=== PATIENT | female | born 1945 | race Caucasian/White ===

== ENCOUNTER 2021-08-26 03:46 | Inpatient (IN) | payer MEDICARE, SELFPAY ==
[2021-08-26] VITALS (11 sets, daily range): BP systolic 115–160; BP diastolic 62–88; PULSE 59–61; RESP 14–20; TEMP 36.1–37.2; O2SAT 90–97; BMI 48.4
--- NOTE | 2021-08-26 | ECG_ITS ---
Test Reason : sob Blood Pressure : / mmHG Vent. Rate : 060 BPM Atrial Rate : 055 BPM P-R Int : 000 ms QRS Dur : 174 ms QT Int : 498 ms P-R-T Axes : 000 -04 075 degrees QTc Int : 498 ms Ventricular-paced rhythm Abnormal ECG When compared with ECG of 31-AUG-2014 09:51, Electronic ventricular pacemaker has replaced Sinus rhythm Right bundle branch block is no longer Present Referred By: Rachael Crane Electronically Signed By:DORY SERRANO MD
--- NOTE | ~2021-08-26 | XR_ITS ---
EXAMINATION: XR CHEST CLINICAL INFORMATION: Shortness of breath COMPARISON: 09/01/2021 TECHNIQUE: Frontal view of the chest was obtained. FINDINGS: Left-sided pacemaker lead tips overlie the right atrium and right ventricle. Lung volumes are symmetric. Patchy regions of opacity in the left midlung and bilateral lung bases appear overall increased from prior. No evidence of pneumothorax or significant pleural effusion. The cardiomediastinal silhouette is stable. Degenerative changes are noted in the shoulders. XR/XR chest 1V IMPRESSION: Interval increase in bibasilar and left midlung opacities since 09/01/2021, in keeping with recent history of Covid pneumonia.
--- NOTE | ~2021-08-26 | XR_ITS ---
EXAMINATION: XR CHEST CLINICAL INFORMATION: Status post chest tube insertion, check placement COMPARISON: 09/10/2021 TECHNIQUE: Frontal view of the chest was obtained. FINDINGS: Right-sided chest tube catheter tip overlies the medial right hemithorax. Endotracheal tube tip lies at approximately 3 cm above the rolando. Enteric tube courses in the stomach. Redemonstrated left-sided pacemaker. Redemonstrated small to moderate-sized right pneumothorax, without significant change in appearance from today's earlier exam, including some leftward mediastinal shift. Previously identified small left pneumothorax is not as well demonstrated on the current exam. Redemonstrated multifocal opacities throughout the left lung and at the right base, similar to prior. Small left pleural effusion may also be present. The cardiomediastinal silhouette is stable. No acute osseous findings are seen. XR/XR chest 1V IMPRESSION: Right-sided chest tube catheter tip overlies the medial right hemithorax. Redemonstrated small to moderate-sized right pneumothorax, without significant change from recent exam. Previously identified small left pneumothorax is not as well seen on the current study; attention on follow-up recommended. Stable appearance of multifocal bilateral airspace opacities, left greater than right. This critical result was discussed with DESIREE Morris on 09/10/2021 2:23 AM, and it was ascertained that the content and urgency of the report was understood at the time of direct communication.
--- NOTE | ~2021-08-26 | US_ITS ---
EXAMINATION: US VENOUS ULTRASOUND WITH DOPPLER LOWER EXTREMITY, BILATERAL CLINICAL INFORMATION: Covid positive at 7 bump in the d-dimer COMPARISON: None TECHNIQUE: Ultrasound of the deep veins is performed from the hip to the calf with compression sonography and color and pulse Doppler assessment. Spectral analysis with color-flow imaging is performed. FINDINGS: RIGHT: There is normal venous compression and respiratory variation and augmented flow. The visualized common femoral vein, superficial femoral vein, profunda femoral vein, popliteal vein, and the trifurcation region shows no evidence of deep venous thrombosis. There is occlusive thrombus in the right posterior tibial vein. Also visualized is slow flow in the lower extremity. There is no significant popliteal fossa cyst. LEFT: There is normal venous compression and respiratory variation and augmented flow. The visualized common femoral vein, superficial femoral vein, profunda femoral vein, popliteal vein, and the trifurcation region shows no evidence of deep venous thrombosis. There is occlusive thrombus in the left posterior tibial veins with slow flow seen throughout left leg. There is no significant popliteal fossa cyst. If the patient's symptoms persist, followup ultrasound in 5 days 7 days might be of value to exclude proximal propagation from a non-visualized calf vein. US/US venous duplex LE IMPRESSION: Bilateral compressive acute DVT in posterior tibial veins.
--- NOTE | ~2021-08-26 | XR_ITS ---
EXAMINATION: XR HAND WRIST, RIGHT CLINICAL INFORMATION: Trauma, pain, fracture COMPARISON: None TECHNIQUE: The right hand and wrist are imaged in 4 total images with [id number] to include both areas on each view. There are total of 4 views. FINDINGS: There is a comminuted impacted fracture involving the distal radius with both transverse and longitudinal intra-articular component. There is no dislocation or destructive process. There is mild widening of the scapholunate lunate articulation which may suggest scapholunate ligament tear. Remainder of the bony structures appear intact. XR/XR hand wrist RT IMPRESSION: 1. Comminuted impacted fracture distal radius. 2. Mild widening scapholunate articulation which may suggest ligament tear.
--- NOTE | ~2021-08-26 | XR_ITS ---
EXAMINATION: XR CHEST CLINICAL INFORMATION: Covid positive. COMPARISON: None TECHNIQUE: Frontal view of the chest was obtained. FINDINGS: Left chest wall pacer in place. Cardiac leads overlie the chest. The lungs are well expanded. There is no focal consolidation, edema, or effusion. No pneumothorax. The cardiomediastinal silhouette is within normal limits. No acute osseous abnormality. XR/XR chest 1V IMPRESSION: No acute pulmonary finding.
--- NOTE | ~2021-08-26 | CT_ITS ---
EXAMINATION: CT CHEST WITHOUT CONTRAST CLINICAL INFORMATION: Acute hypoxemia with respiratory failure secondary to COVID. COMPARISON: Chest x-ray of 08/26/2021. TECHNIQUE: Multidetector volumetric CT imaging of the chest was done. Axial MIP volume rendering provided. Sagittal and coronal reformatted images were obtained. This CT examination was performed using dose optimization techniques as appropriate, variously including the following: *Automated exposure control *Adjustment of mA and/or kV according to patient size (this includes techniques or standardized protocols for targeted exams where dose is matched to indication/reason for exam; i.e. extremities or head) *Use of iterative reconstruction technique DLP: 316 mGy-cm FINDINGS: LUNGS: There are diffusely scattered regions of ground-glass opacity seen bilaterally with a more confluent region of airspace disease seen within the left lower lobe. Bronchial wall thickening is present. Central airways are patent. There is some mild bronchiectasis seen within the left lower lobe. MEDIASTINUM: The heart is enlarged. No pericardial effusion. Coronary artery calcification present. Pacemaker in place. Ascending thoracic aorta measures 4.1 cm in diameter. No occlusive arch calcified plaque is seen. There is a 1 cm short axis aortopulmonic window lymph node. PLEURA: There is no pleural effusion. AXILLA: No lymphadenopathy. UPPER ABDOMEN: The left adrenal gland is prominent. Status post cholecystectomy. OSSEOUS STRUCTURES: There are degenerative changes of both shoulders. No acute destructive bony lesions identified. CT/CT chest wo con IMPRESSION: Bilateral regions of ground-glass opacity consistent with COVID disease. More confluent region of disease seen within the left lower lobe. Cardiomegaly without evidence of pulmonary edema. 1 cm short axis aortopulmonic window lymph node. Enlarged ascending thoracic aorta to 4.1 cm in diameter.
--- NOTE | ~2021-08-26 | XR_ITS ---
EXAMINATION: XR CHEST CLINICAL INFORMATION: Status post intubation COMPARISON: 09/09/2021 TECHNIQUE: Frontal view of the chest was obtained. FINDINGS: Endotracheal tube tip appears to lie approximately 4 cm above the rolando. Redemonstrated left-sided pacemaker with lead tips at the expected regions of the right atrium and right ventricle. There is a small to moderate right-sided pneumothorax. The right hemithorax appears hyperinflated with some leftward mediastinal shift, concerning for associated tension. Small left pneumothorax is also suspected. Patchy opacities throughout the left lung appear mildly worsened from prior. Redemonstrated patchy opacities at the right lung base. Trace left pleural effusion cannot be excluded. Cardiomediastinal size appears grossly stable. No acute osseous findings are seen. XR/XR chest 1V IMPRESSION: 1. New small to moderate-sized right pneumothorax with findings concerning for associated tension. 2. Small left pneumothorax also noted. 3. Bilateral airspace opacities, left greater than right, and slightly worsened on the left compared to prior. 4. Endotracheal tube tip approximately 4 cm above the rolando. This critical result was discussed with DESIREE Morris on 09/10/2021 1:09 AM, and it was ascertained that the content and urgency of the report was understood at the time of direct communication.
--- NOTE | ~2021-08-26 | XR_ITS ---
EXAMINATION: XR CHEST CLINICAL INFORMATION: Hypoxia. COMPARISON: Chest radiograph dated from 09/09/2021 at 5:33 AM. TECHNIQUE: AP view of the chest was obtained. FINDINGS: Left-sided pacer with leads overlying the regions of the right atrium and right ventricle in similar positioning to prior. EKG leads overlie the left and lower chest. Unchanged appearance of the cardiomediastinal silhouette. Mildly increased patchy airspace opacities predominantly in the lung bases with also slightly increased small bilateral pleural effusions. No pneumothorax. No acute osseous findings. XR/XR chest 1V IMPRESSION: Increased patchy airspace opacities and bilateral pleural effusions. No pneumothorax.
--- NOTE | 2021-08-26 04:27 | ED_ITS ---
HPI - SOB/Dyspnea General Chief Complaint: Dyspnea Stated Complaint: sob,+covid Time Seen by Provider: 08/26/21 04:27 Source: patient Mode of arrival: EMS History of Present Illness HPI Narrative: 75-year-old female who is brought in by ambulance for increasing shortness of breath and dizziness that she states has been worsening since her recent diagnosis of COVID-19 3 days ago. She denies any new cough, chest pain/palpitations, GI or symptoms. In addition, patient denies any history diagnoses such as heart failure/fluid on the lungs/asthma/COPD. Her history is significant for a recent fall at the beginning of the month that she states was mechanical in nature and for which she still has her right arm in a splint. Related Data Home Medications Medication Instructions Recorded Confirmed ascorbic acid (vitamin C) 500 mg 500 mg PO DAILY 08/26/21 08/26/21 tablet (Vitamin C) citalopram 20 mg tablet 20 mg PO DAILY 08/26/21 08/26/21 furosemide 20 mg tablet 20 mg PO DAILY 08/26/21 08/26/21 levothyroxine 175 mcg tablet 175 mcg PO DAILY 08/26/21 08/26/21 lisinopril 20 mg tablet 20 mg PO DAILY 08/26/21 08/26/21 metoprolol succinate 200 mg 200 mg PO DAILY 08/26/21 08/26/21 tablet,extended release 24 hr multivitamin 1 tab PO DAILY 08/26/21 08/26/21 omeprazole 20 mg capsule,delayed 20 mg PO DAILY 08/26/21 08/26/21 release oxycodone 5 mg tablet 5 mg PO Q6H 08/26/21 08/26/21 simvastatin 40 mg tablet 40 mg PO BEDTIME 08/26/21 08/26/21 warfarin 5 mg tablet (Jantoven) 1 tab PO DAILY@1800 08/26/21 08/26/21 Allergies Allergy/AdvReac Type Severity Reaction Status Date / Time No Known Allergies Allergy Unverified 07/02/20 16:44 Review of Systems Review of Systems: Pertinent positives and negatives as stated in HPI 10 point review of systems is otherwise negative. PMFSH Past Medical History Source: nursing notes reviewed Medical History (Updated 08/26/21 @ 21:16 by Rachael Crane MD) CAD (coronary artery disease) Hyperlipidemia Hypertension Surgical History (Updated 08/26/21 @ 10:11 by Chapincito Rosales MD) History of appendectomy S/P placement of cardiac pacemaker Social History Social History (Updated 08/26/21 @ 10:11 by Chapincito Rosales MD) Household Members: Spouse Housing: House Do you presently have visiting nurse or other home services: No Alcohol intake: never Patient Tobacco Use Status: Never used Tobacco Physical Exam Vital Signs: Vital Signs: Last Vital Signs Temp 97.2 F 08/26/21 19:09 Pulse 60 08/26/21 19:09 Resp 20 08/26/21 19:09 BP 115/69 08/26/21 19:09 Pulse Ox 95 08/26/21 19:09 Body Mass Index 48.4 VITAL SIGNS: Reviewed. GENERAL: Morbidly obese, chronically ill, poor hygiene HEAD: Normocephalic/atraumatic EYES: PERRLA, EOMI OROPHARYNX: no oral lesions noted, posterior pharynx clear, dry mucosa NECK: Supple, no adenopathy LUNGS: By basilar decreased breath up, rales but no rhonchi noted. SpO2<90> placed on nasal cannula with good response CARDIOVASCULAR: Regular rate and rhythm without noted murmurs, no JVD or lower extremity edema. ABDOMEN: Obese, Soft, non-tender, non-distended with bowel sounds. MUSCULOSKELETAL: Right upper extremity is in a splint with good capillary refill in pulses, sensation is intact EXTREMITIES: No cyanosis, clubbing or edema, but onychomycosis SKIN: Inspection of the skin reveals no rashes NEUROLOGIC: Alert and oriented x 4. Strength and sensation to light touch were grossly intact x 4. Course Course Course Narrative: 75-year-old female with history and clinical presentation most consistent with symptoms of COVID-19, new hypoxia. Review of all investigations consistent with COVID-19 infection with hypoxia. This case was discussed with the inpatient hospital was of you agrees for admission, but states that the day team will need to formally assess the pa tient. I discussed this case briefly with Dr Mcdonough, who agrees with diuresis. MDM - SOB/Dyspnea Lab Data Result diagrams: 08/26/21 04:33 08/26/21 04:33 Labs: Lab Results 08/26/21 08/26/21 08/26/21 Range/Units 04:33 04:33 04:33 WBC 5.7 (4.8-10.8) X10*3/uL RBC 3.73 L (4.20-5.50) X10*6/uL Hgb 12.5 (12.0-16.0) g/dl Hct 37.9 (37.0-47.0) % MCV 101.6 H (80.0-98.0) fL MCH 33.5 H (27.0-33.0) pg MCHC 33.0 (31.0-35.0) g/dl RDW 15.8 (11.0-16.0) % Plt Count 184 (160-400) X10*3/uL MPV 11.4 (9.4-12.3) fL Immature Gran % (Auto) 0.4 (0.0-0.4) % Neut % (Auto) 79.3 H (45-73) % Lymph % (Auto) 14.8 L (20-40) % Montgomery % (Auto) 5.5 (2-11) % Eos % (Auto) 0.0 (0-4) % Baso % (Auto) 0.0 (0-2) % Lymph # (Auto) 0.8 L (1.2-4.9) X10*3/uL Montgomery # (Auto) 0.3 (0.1-1.2) X10*3/uL Eos # (Auto) 0.0 (0.0-0.4) X10*3/uL Baso # (Auto) 0.0 (0.0-0.2) X10*3/uL Abs Immat Gran (auto) 0.02 (0.00-0.03) X10*3/uL Absolute Neuts (auto) 4.5 (2.0-8.3) x10*3/uL Absolute Nucleated RBC 0.000 (0.0-0.012) X10*3/uL Nucleated RBC % (auto) 0.0 (0.0-0.2) /100WBC VBG pH (7.32-7.43) VBG pCO2 mmHg VBG pO2 mmHg VBG HCO3 (22-26) mmol/L VBG O2 Saturation % VBG Base Excess mmol/L Sodium 142 (135-145) mmol/L Potassium 3.7 (3.3-5.1) mmol/L Chloride 104 (96-108) mmol/L Carbon Dioxide 27 (22-29) mmol/L Anion Gap 15 (12-20) BUN 18 H (9-16) mg/dL Creatinine 0.89 (0.5-1.4) mg/dL Estim Creat Clear Calc 80.0 Estimated GFR > 60 Fasting Glucose 113 H (60-99) mg/dL Lactic Acid 1.8 (0.5-2.0) mmol/L Calcium 8.4 (8.4-10.2) mg/dL Ferritin 534 H (10-250) ng/mL Total Bilirubin 0.6 (0.0-1.0) mg/dL AST 38 H (5-31) U/L ALT 23 (0-31) U/L Alkaline Phosphatase 69 (39-117) U/L Lactate Dehydrogenase 300 H (122-220) U/L C-Reactive Protein 11.06 H (< or = 0.50) mg/dL B-Natriuretic Peptide (<100) pg/mL Total Protein 6.5 (6.5-8.0) g/dL Albumin 3.2 L (3.5-5.0) g/dL Procalcitonin ng/mL COVID-19 (ROBBIE) (Negative) COVID-19 Clin Com 08/26/21 08/26/21 08/26/21 Range/Units 04:33 04:33 04:33 WBC (4.8-10.8) X10*3/uL RBC (4.20-5.50) X10*6/uL Hgb (12.0-16.0) g/dl Hct (37.0-47.0) % MCV (80.0-98.0) fL MCH (27.0-33.0) pg MCHC (31.0-35.0) g/dl RDW (11.0-16.0) % Plt Count (160-400) X10*3/uL MPV (9.4-12.3) fL Immature Gran % (Auto) (0.0-0.4) % Neut % (Auto) (45-73) % Lymph % (Auto) (20-40) % Montgomery % (Auto) (2-11) % Eos % (Auto) (0-4) % Baso % (Auto) (0-2) % Lymph # (Auto) (1.2-4.9) X10*3/uL Montgomery # (Auto) (0.1-1.2) X10*3/uL Eos # (Auto) (0.0-0.4) X10*3/uL Baso # (Auto) (0.0-0.2) X10*3/uL Abs Immat Gran (auto) (0.00-0.03) X10*3/uL Absolute Neuts (auto) (2.0-8.3) x10*3/uL Absolute Nucleated RBC (0.0-0.012) X10*3/uL Nucleated RBC % (auto) (0.0-0.2) /100WBC VBG pH (7.32-7.43) VBG pCO2 mmHg VBG pO2 mmHg VBG HCO3 (22-26) mmol/L VBG O2 Saturation % VBG Base Excess mmol/L Sodium (135-145) mmol/L Potassium (3.3-5.1) mmol/L Chloride (96-108) mmol/L Carbon Dioxide (22-29) mmol/L Anion Gap (12-20) BUN (9-16) mg/dL Creatinine (0.5-1.4) mg/dL Estim Creat Clear Calc Estimated GFR Fasting Glucose (60-99) mg/dL Lactic Acid (0.5-2.0) mmol/L Calcium (8.4-10.2) mg/dL Ferritin (10-250) ng/mL Total Bilirubin (0.0-1.0) mg/dL AST (5-31) U/L ALT (0-31) U/L Alkaline Phosphatase (39-117) U/L Lactate Dehydrogenase (122-220) U/L C-Reactive Protein (< or = 0.50) mg/dL B-Natriuretic Peptide 799 H (<100) pg/mL Total Protein (6.5-8.0) g/dL Albumin (3.5-5.0) g/dL Procalcitonin 0.06 ng/mL COVID-19 (ROBBIE) Positive A (Negative) COVID-19 Clin Com See Note 08/26/21 Range/Units 04:37 WBC (4.8-10.8) X10*3/uL RBC (4.20-5.50) X10*6/uL Hgb (12.0-16.0) g/dl Hct (37.0-47.0) % MCV (80.0-98.0) fL MCH (27.0-33.0) pg MCHC (31.0-35.0) g/dl RDW (11.0-16.0) % Plt Count (160-400) X10*3/uL MPV (9.4-12.3) fL Immature Gran % (Auto) (0.0-0.4) % Neut % (Auto) (45-73) % Lymph % (Auto) (20-40) % Montgomery % (Auto) (2-11) % Eos % (Auto) (0-4) % Baso % (Auto) (0-2) % Lymph # (Auto) (1.2-4.9) X10*3/uL Montgomery # (Auto) (0.1-1.2) X10*3/uL Eos # (Auto) (0.0-0.4) X10*3/uL Baso # (Auto) (0.0-0.2) X10*3/uL Abs Immat Gran (auto) (0.00-0.03) X10*3/uL Absolute Neuts (auto) (2.0-8.3) x10*3/uL Absolute Nucleated RBC (0.0-0.012) X10*3/uL Nucleated RBC % (auto) (0.0-0.2) /100WBC VBG pH 7.44 H (7.32-7.43) VBG pCO2 42 mmHg VBG pO2 43 mmHg VBG HCO3 28 H (22-26) mmol/L VBG O2 Saturation 67.0 % VBG Base Excess 4.3 mmol/L Sodium (135-145) mmol/L Potassium (3.3-5.1) mmol/L Chloride (96-108) mmol/L Carbon Dioxide (22-29) mmol/L Anion Gap (12-20) BUN (9-16) mg/dL Creatinine (0.5-1.4) mg/dL Estim Creat Clear Calc Estimated GFR Fasting Glucose (60-99) mg/dL Lactic Acid (0.5-2.0) mmol/L Calcium (8.4-10.2) mg/dL Ferritin (10-250) ng/mL Total Bilirubin (0.0-1.0) mg/dL AST (5-31) U/L ALT (0-31) U/L Alkaline Phosphatase (39-117) U/L Lactate Dehydrogenase (122-220) U/L C-Reactive Protein (< or = 0.50) mg/dL B-Natriuretic Peptide (<100) pg/mL Total Protein (6.5-8.0) g/dL Albumin (3.5-5.0) g/dL Procalcitonin ng/mL COVID-19 (ROBBIE) (Negative) COVID-19 Clin Com ECG Data Attestation: I personally reviewed and interpreted this ECG as follows: Prior ECG tracings: available for review (08/31/2014 significant changes likely secondary to changes in cardiac history as patient has pacemaker.) Interpretation: Ventricular paced rhythm, HR-60, no STEMI Discharge Plan Discharge Clinical Impression: COVID-19, Hypoxemia, Congestive heart failure Patient Disposition: Admitted As Inpatient Discharge Date/Time: 08/26/21 15:32
[2021-08-26 04:39] LABS: MANUAL DIFF FLAG NO
[2021-08-26 04:44] LABS: Venous Blood Gas Refer to POC result
[2021-08-26 04:45] LABS: VBG Base Excess 4.3 mmol/L; VBG HCO3 28 mmol/L (22-26); VBG pCO2 42 mmHg; VBG pH 7.44 (7.32-7.43); VBG pO2 43 mmHg
[2021-08-26 04:47] LABS: Hematocrit 37.9 % (37.0-47.0); Hemoglobin 12.5 g/dl (12.0-16.0); Imm Gran Abs Auto 0.02 X10*3/uL (0.00-0.03); Imm Gran Pct Auto 0.4 % (0.0-0.4); Lymphocytes Absolute Auto 0.8 X10*3/uL (1.2-4.9); Lymphocytes Percent Auto 14.8 % (20-40); Mean Corpuscular Hemoglobin 33.5 pg (27.0-33.0); Mean Corpuscular Volume 101.6 fL (80.0-98.0); Mean Platelet Volume 11.4 fL (9.4-12.3); Monocytes Absolute Auto 0.3 X10*3/uL (0.1-1.2); Monocytes Percent Auto 5.5 % (2-11); Neutrophils Absolute Auto 4.5 x10*3/uL (2.0-8.3); Neutrophils Percent Auto 79.3 % (45-73); Platelet Count 184 X10*3/uL (160-400); Red Blood Count 3.73 X10*6/uL (4.20-5.50); Red Cell Distribution Width 15.8 % (11.0-16.0); White Blood Count 5.7 X10*3/uL (4.8-10.8)
[2021-08-26 04:54] LABS: COVID-19 Test Positive (Negative)
[2021-08-26 05:02] LABS: Lactic Acid 1.8 mmol/L (0.5-2.0)
[2021-08-26 05:06] LABS: Alanine Aminotransferase 23 U/L (0-31); Albumin Level 3.2 g/dL (3.5-5.0); Alkaline Phosphatase 69 U/L (39-117); Anion Gap 15 (12-20); Aspartate Amino Transferase 38 U/L (5-31); Bilirubin Total 0.6 mg/dL (0.0-1.0); Blood Urea Nitrogen 18 mg/dL (9-16); Calcium 8.4 mg/dL (8.4-10.2); Carbon Dioxide 27 mmol/L (22-29); Chloride 104 mmol/L (96-108); Estimated Glomerular Filt Rate > 60; Glucose Fasting 113 mg/dL (60-99); Potassium 3.7 mmol/L (3.3-5.1); Sodium 142 mmol/L (135-145); Total Protein 6.5 g/dL (6.5-8.0)
[2021-08-26 05:29] LABS: B Type Natriuretic Peptide 799 pg/mL (<100)
--- NOTE | 2021-08-26 05:32 | PC.NURSE ---
Pt alert and oriented x4, anxious. Pt denies pain. States SOB. States dizziness ad weakness when OOB. Placed on 2 liters O2 at this time, denies having home O2. History of recent fall, arm splint to right arm placed 1 week ago per pt. Red moist painful rash noted under breast and abd folds, MD Crane made aware and shown rash. IV intact. Pt resting in stretcher without complaints, will continue to monitor.
[2021-08-26] MEDS: Furosemide 100 MG/10 ML VIAL 60 MG IVPUSH (08:43)
--- NOTE | 2021-08-26 08:59 | PHA.MEDREC ---
Pharmacy Consult ? Medication Reconciliation Pharmacy has completed the medication reconciliation. There are no remarkable issues for providers attention. Patient confirmed citalopram dose was decreased to 20mg and warfarin is 5mg daily. Patient also reported she is no longer taking diltiazem, Jessi Hamm, PharmD
--- NOTE | 2021-08-26 09:53 | P.HPHOSP_ITS ---
History of Present Illness Date of Service: 08/26/21 Chief Complaint: shortness of breath This is a 75 yo F (who is not a great historian and so PMH is limited) who presents to the ED with complaints of shortness of breath over the last several days which has progressed to the point that she can barely walk several feet. She endorses a productive cough of white sputum. She denies any fevers or chills. She denies any pleurtic chest pain. She reports fatigue and generalized malaise. She reports that she tested positive for COVID about 3-4 days ago. She reports that she is not vaccinated. She denies any known sick contacts although does report that her has diarrhea but that his COVID testing she thinks is negative. In regards to her medical history, the patient reports that she had an AMI about 5 years ago and also has a PPM. She reports previously being on lasix, but is unsure if she carries a diagnosis of CHF. She denies any other chronic health problems. Review of Systems Review of Systems: all systems reviewed and negative except for HPI [facility] Medical History (Updated 08/26/21 @ 10:09 by Chapincito Rosales MD) CAD (coronary artery disease) Hyperlipidemia Hypertension Pertinent family history: Mother had Heart failure Father and sister has alcoholism Surgical History (Updated 08/26/21 @ 10:11 by Chapincito Rosales MD) History of appendectomy S/P placement of cardiac pacemaker Social History (Updated 08/26/21 @ 10:11 by Chapincito Rosales MD) Alcohol intake: never Patient Tobacco Use Status: Never used Tobacco Smoked in Last 30 Days: No Use of substances other than those prescribed or required for medical reasons: No Advance Directives: No Meds Allergies Allergy/AdvReac Type Severity Reaction Status Date / Time No Known Allergies Allergy Unverified 07/02/20 16:44 Active Medications: Current Medications Acetaminophen (Acetaminophen 325 Mg Tablet) 650 mg PO Q6H PRN PRN Reason: Fever Dexamethasone Sodium Phosphate (Dexamethasone Sod Phosphate 4 Mg/Ml Vial) 6 mg IVPUSH DAILY JESSICA Stop: 09/04/21 09:01 Ondansetron HCl (Ondansetron Hcl 4 Mg/2 Ml Vial) 4 mg IVPUSH Q8H PRN PRN Reason: Nausea and Vomiting Pharmacy Consult (Consult Rx Perform Med Rec) 1 each MISCELLANE ONCE PRN PRN Reason: Consult order Sodium Chloride (0.9 % Sodium Chloride Flush 3 Ml Syringe) 3 ml IVFLUSH QSHIFT [facility] Home Medications Medication Instructions Recorded Confirmed Last Taken Type ascorbic acid (vitamin C) 500 mg 500 mg PO DAILY 08/26/21 08/26/21 08/25/21 History tablet (Vitamin C) citalopram 20 mg tablet 20 mg PO DAILY 08/26/21 08/26/21 08/25/21 History furosemide 20 mg tablet 20 mg PO DAILY 08/26/21 08/26/21 08/25/21 History levothyroxine 175 mcg tablet 175 mcg PO DAILY 08/26/21 08/26/21 08/25/21 History lisinopril 20 mg tablet 20 mg PO DAILY 08/26/21 08/26/21 08/25/21 History metoprolol succinate 200 mg 200 mg PO DAILY 08/26/21 08/26/21 08/25/21 History tablet,extended release 24 hr multivitamin 1 tab PO DAILY 08/26/21 08/26/21 08/25/21 History omeprazole 20 mg capsule,delayed 20 mg PO DAILY 08/26/21 08/26/21 08/25/21 History release oxycodone 5 mg tablet 5 mg PO Q6H 08/26/21 08/26/21 08/25/21 History simvastatin 40 mg tablet 40 mg PO BEDTIME 08/26/21 08/26/21 08/25/21 History warfarin 5 mg tablet (Jantoven) 1 tab PO DAILY@1800 08/26/21 08/26/21 08/25/21 History Physical Exam Vital Signs and Narrative: Vital Signs: Last Vital Signs Temp 99.0 F 08/26/21 07:17 Pulse 60 08/26/21 08:42 Resp 16 08/26/21 08:42 BP 146/67 H 08/26/21 08:42 Pulse Ox 95 08/26/21 07:17 Body Mass Index 48.4 Const: Other: Constitutional - Awake and Alert, appears fatigued Eyes - PERRLA, EOMI Cardiovascular - S1S2, trace pedal edema, JVD evaluation limited due to body habitus Respiratory - distant breath sounds, no respiratory distress at rest; saturation mid 90s on 3L NC Gastrointestinal - NT / ND; +BS; No rebound or guarding - No CVA tenderness Extremities - no calf tenderness bilaterally, no swelling Musculoskeletal - Normal inspection, normal ROM Skin - Warm/Dry Neurological - Moving all 4 limbs, no facial assymetry, oriented to person, place and time; vague historian Psychological - Appropriate affect Results Labs CBC and Chem 7: 08/26/21 04:33 08/26/21 04:33 Labs: Laboratory Results - last 24 hr 08/26/21 08/26/21 08/26/21 04:33 04:33 04:33 MCV 101.6 H MCH 33.5 H MCHC 33.0 RDW 15.8 Plt Count 184 MPV 11.4 Immature Gran % (Auto) 0.4 Neut % (Auto) 79.3 H Lymph % (Auto) 14.8 L Calloway % (Auto) 5.5 Eos % (Auto) 0.0 Baso % (Auto) 0.0 Lymph # (Auto) 0.8 L Calloway # (Auto) 0.3 Eos # (Auto) 0.0 Baso # (Auto) 0.0 Abs Immat Gran (auto) 0.02 Absolute Neuts (auto) 4.5 Absolute Nucleated RBC 0.000 Nucleated RBC % (auto) 0.0 VBG pH VBG pCO2 VBG pO2 VBG HCO3 VBG O2 Saturation VBG Base Excess Anion Gap 15 Estim Creat Clear Calc 80.0 Estimated GFR > 60 Fasting Glucose 113 H Lactic Acid 1.8 Calcium 8.4 Total Bilirubin 0.6 AST 38 H ALT 23 Alkaline Phosphatase 69 B-Natriuretic Peptide Total Protein 6.5 Albumin 3.2 L COVID-19 (ROBBIE) COVID-19 Clin Com 08/26/21 08/26/21 08/26/21 04:33 04:33 04:37 MCV MCH MCHC RDW Plt Count MPV Immature Gran % (Auto) Neut % (Auto) Lymph % (Auto) Calloway % (Auto) Eos % (Auto) Baso % (Auto) Lymph # (Auto) Calloway # (Auto) Eos # (Auto) Baso # (Auto) Abs Immat Gran (auto) Absolute Neuts (auto) Absolute Nucleated RBC Nucleated RBC % (auto) VBG pH 7.44 H VBG pCO2 42 VBG pO2 43 VBG HCO3 28 H VBG O2 Saturation 67.0 VBG Base Excess 4.3 Anion Gap Estim Creat Clear Calc Estimated GFR Fasting Glucose Lactic Acid Calcium Total Bilirubin AST ALT Alkaline Phosphatase B-Natriuretic Peptide 799 H Total Protein Albumin COVID-19 (ROBBIE) Positive A COVID-19 Clin Com See Note Imaging Radiologist's Impressions: Impressions Chest X-Ray 08/26/21 04:36 IMPRESSION: No acute pulmonary finding. Assessment and Plan (1) COVID-19: Status: Acute This is a 75 yo unvaccinated (to COVID) female who presents to the hospital with 3 to 4 days of progressive shortness of breath and generalized malaise. She reported being tested for COVID at [facility] on Thursday 08/23. She now presents with respiratory symptoms. She will be admitted for further treatment. 1. COVID 19 Saturation 90 on RA, improved to mid 90s on 2-3l NC Check inflammatory biomarkers Start Decadron 6mg IV x 10 days Consult ID 2. Acute CHF, unspecified Endorses orthopnea and has an elevated BNP given IV lasix 60mg in the ED, will monitor urine output and start BID dosing will try to obtain echo results and if none recent, will get one here 3. HTN continue baseline meds 4. Coumadin use suspected for A. Fib, but patient is not sure. Check INR and continue coumadin will try to obtain records from [facility] Continue her other baseline meds Quality Stroke Does the patient have a stroke diagnosis?: No VTE Prior VTE?: No VTE Risk Level:: Medical - moderate - high VTE Device Contraindication: Treatment Not Indicated VTE Drug Contraindication: N/A - Med Ordered
[2021-08-26] MEDS: dexAMETHasone sod phosphate 4 MG/ML VIAL 6 MG IVPUSH (10:07)
[2021-08-26 10:23] LABS: C Reactive Protein 11.06 mg/dL (< or = 0.50); Lactate Dehydrogenase 300 U/L (122-220)
[2021-08-26] MEDS: lisinopriL 20 MG TABLET PO (10:29)
[2021-08-26] MEDS: Escitalopram Oxalate 10 MG TABLET PO (10:30)
[2021-08-26] MEDS: Metoprolol Succinate ER 100 MG TAB.ER.24H 200 MG PO (10:30)
[2021-08-26 10:41] LABS: Prothrombin Time 46.8 SEC (9.9-13.0)
[2021-08-26 10:42] LABS: Ferritin 534 ng/mL (10-250)
[2021-08-26 10:44] LABS: D Dimer 425 NG/ML
[2021-08-26 10:48] LABS: Procalcitonin 0.06 ng/mL
[2021-08-26] MEDS: Furosemide 20 MG/2 ML VIAL IVPUSH (17:42)
[2021-08-26] MEDS: 0.9 % Sodium Chloride Flush 3 ML SYRINGE IVFLUSH ×2 (17:43→22:33)
[2021-08-26] MEDS: Atorvastatin Calcium 20 MG TABLET PO (20:22)
[2021-08-26] MEDS: Acetaminophen 325 MG TABLET 650 MG PO (22:39)
[2021-08-27] VITALS (7 sets, daily range): BP systolic 122–147; BP diastolic 56–82; PULSE 58–88; RESP 17–20; TEMP 35.9–36.8; O2SAT 90–96
[2021-08-27] MEDS: Levothyroxine Sodium 175 MCG TABLET PO (05:14)
[2021-08-27] MEDS: Omeprazole 20 MG CAPSULE.DR PO (05:14)
[2021-08-27 06:52] LABS: Hemoglobin 12.4 g/dl (12.0-16.0); Mean Corpuscular HGB Conc 32.6 g/dl (31.0-35.0); Mean Corpuscular Hemoglobin 32.1 pg (27.0-33.0); Mean Corpuscular Volume 98.4 fL (80.0-98.0); Mean Platelet Volume 11.5 fL (9.4-12.3); Platelet Count 175 X10*3/uL (160-400); Red Blood Count 3.86 X10*6/uL (4.20-5.50); Red Cell Distribution Width 15.6 % (11.0-16.0); White Blood Count 5.9 X10*3/uL (4.8-10.8)
[2021-08-27 06:56] LABS: INTERNATIONAL NORM RATIO 3.3 (0.9-1.1); Prothrombin Time 38.2 SEC (9.9-13.0)
[2021-08-27 07:11] LABS: Anion Gap 12 (12-20); Blood Urea Nitrogen 22 mg/dL (9-16); Calcium 8.1 mg/dL (8.4-10.2); Carbon Dioxide 32 mmol/L (22-29); Chloride 101 mmol/L (96-108); Creatinine Clr Calc Pharmacy 85.7; Estimated Glomerular Filt Rate > 60; Glucose Random 103 mg/dL (60-115); Potassium 3.5 mmol/L (3.3-5.1); Sodium 141 mmol/L (135-145)
[2021-08-27] MEDS: Escitalopram Oxalate 10 MG TABLET PO (09:07)
[2021-08-27] MEDS: Furosemide 20 MG/2 ML VIAL IVPUSH ×2 (09:07→16:55)
[2021-08-27] MEDS: dexAMETHasone sod phosphate 4 MG/ML VIAL 6 MG IVPUSH (09:07)
[2021-08-27] MEDS: 0.9 % Sodium Chloride Flush 3 ML SYRINGE IVFLUSH ×3 (09:08→20:33)
[2021-08-27] MEDS: lisinopriL 20 MG TABLET PO (09:08)
[2021-08-27] MEDS: Metoprolol Succinate ER 100 MG TAB.ER.24H 200 MG PO (09:08)
--- NOTE | 2021-08-27 09:49 | MHC.CM.PN ---
Addendum entered by Patricia Adams 08/27/21 09:59: Pt is not Vaccinated. She does not have home @ oxygen. A HCP has been documented and placed on the chart. Original Note: IMM 08/27/21 FEMALE 75 DX COVID+ S/P FALL RUE FX PATIENT LIVES WITH HER . SHE USES A CANE OR WALKER AND WC FOR LONG DISTANCES. She sponge bathes. AC therapy has been managed at a [facility] practice on [facility] in [place] NO services or private pay help in home prior to admit. She does not want to go to [facility]. Home care preference NA. A referral has been made. DP Home with services. Family will provide transportation.
--- NOTE | 2021-08-27 11:59 | PC.NURSE ---
This RN at bedside - patient stated I want to make sure I'm a DNR on record . Patient orientated to person, place, and time, vague on situation. When asked if patient understood what DNR meant she stated I don't want anything done if it is my time to go . Rosaline Solo notified via tiger text. Patient remains Full code in [facility].
--- NOTE | 2021-08-27 14:39 | HO.PM.IMPN ---
Subjective Subjective Date of Service: 08/27/21 Interval History: seen and examined this morning follow up for covid no change in breathing, intermittent cough tearful when discussing right arm fracture, reporting her cast should have been removed by now but it was delayed due to COVID Review of Systems Review of Systems: Yes all other systems are reviewed and are negative Constitutional Constitutional: Denies chills and Denies fever(s) Cardiovascular Cardiovascular: Denies chest pain Gastrointestinal Gastrointestinal: Denies abdominal pain Physical Exam Vital Signs: Vital Signs: Last Vital Signs Temp 96.7 F L 08/27/21 11:56 Pulse 58 08/27/21 11:56 Resp 20 08/27/21 11:56 BP 122/77 08/27/21 11:56 Pulse Ox 93 08/27/21 11:56 Body Mass Index 48.4 Const: General: comfortable, alert and awake Nutritional Appearance: obese HENMT: Head: Yes normocephalic and Yes atraumatic Eyes: Sclerae: sclerae normal Resp: Effort & Inspection: normal respiratory effort and no respiratory distress Cardio: Rate: regular rate Rhythm: regular rhythm GI: Inspection: No distended Palpation (GI): Soft to palpation and nontender Neuro: Cranial nerves: Yes CN's II-XII intact bilaterally and Yes Bilaterally intact EOM present Extrem: Other: RUE cast in place Objective Data Active Medications Acetaminophen (Acetaminophen 325 Mg Tablet) 650 mg PO Q6H PRN PRN Reason: Fever Last Admin: 08/26/21 22:39 Dose: 650 mg Documented by: JORY Atorvastatin Calcium (Atorvastatin Calcium 20 Mg Tablet) 20 mg PO BEDTIME [facility] Last Admin: 08/26/21 20:22 Dose: 20 mg Documented by: JORY Dexamethasone Sodium Phosphate (Dexamethasone Sod Phosphate 4 Mg/Ml Vial) 6 mg IVPUSH DAILY [facility] Stop: 09/04/21 09:01 Last Admin: 08/27/21 09:07 Dose: 6 mg Documented by: PENNY Escitalopram Oxalate (Escitalopram Oxalate 10 Mg Tablet) 10 mg PO DAILY [facility] Last Admin: 08/27/21 09:07 Dose: 10 mg Documented by: PENNY Furosemide (Furosemide 20 Mg/2 Ml Vial) 20 mg IVPUSH BID@0900,1800 [facility]; Protocol Last Admin: 08/27/21 09:07 Dose: 20 mg Documented by: PENNY Levothyroxine Sodium (Levothyroxine Sodium 175 Mcg Tablet) 175 mcg PO DAILY@0600 [facility] Last Admin: 08/27/21 05:14 Dose: 175 mcg Documented by: AMANDA Lisinopril (Lisinopril 20 Mg Tablet) 20 mg PO DAILY [facility]; Protocol Last Admin: 08/27/21 09:08 Dose: 20 mg Documented by: PENNY Metoprolol Succinate (Metoprolol Succinate Er 100 Mg Tab.Er.24h) 200 mg PO DAILY [facility]; Protocol Last Admin: 08/27/21 09:08 Dose: 200 mg Documented by: PENNY Nystatin (Nystatin Powder 15 Gm Bottle) 1 appl TOPICAL BID [facility]; Protocol Last Admin: 08/27/21 10:40 Dose: Not Given Documented by: PENNY Non-Admin Reason: unavailable Omeprazole (Omeprazole 20 Mg Capsule.Dr) 20 mg PO DAILY@0630 [facility] Last Admin: 08/27/21 05:14 Dose: 20 mg Documented by: AMANDA Ondansetron HCl (Ondansetron Hcl 4 Mg/2 Ml Vial) 4 mg IVPUSH Q8H PRN PRN Reason: Nausea and Vomiting Pharmacy Consult (Consult Rx Perform Med Rec) 1 each MISCELLANE ONCE PRN PRN Reason: Consult order Sodium Chloride (0.9 % Sodium Chloride Flush 3 Ml Syringe) 3 ml IVFLUSH QSHIFT [facility] Last Admin: 08/27/21 09:08 Dose: 3 ml Documented by: PENNY Warfarin Sodium (Warfarin Sodium 5 Mg Tablet) 5 mg PO DAILY@1800 [facility] Labs CBC & Chem 7: 08/27/21 05:58 08/27/21 05:58 Labs: Laboratory Results - last 24 hr 08/27/21 08/27/21 08/27/21 05:58 05:58 05:58 MCV 98.4 H MCH 32.1 MCHC 32.6 RDW 15.6 Plt Count 175 MPV 11.5 Absolute Nucleated RBC 0.000 Nucleated RBC % (auto) 0.0 PT 38.2 H INR 3.3 H Anion Gap 12 Estim Creat Clear Calc 85.7 Estimated GFR > 60 Random Glucose 103 Calcium 8.1 L Microbiology Microbiology Results: Microbiology 08/26/21 07:27 Blood Culture - Preliminary Blood - Venous No growth after 24 hours. 08/26/21 06:39 Blood Culture - Preliminary Blood - Venous No growth after 24 hours. Assessment and Plan (1) COVID-19: Status: Acute (2) Congestive heart failure: Status: Acute Assessment and Plan: This is a 75 yo unvaccinated (to COVID) female who presents to the hospital with 3 to 4 days of progressive shortness of breath and generalized malaise. She reported being tested for COVID at [facility] on Thursday 08/23. She now presents with respiratory symptoms. She will be admitted for further treatment. COVID 19 Saturation 90 on RA, improved to mid 90s on 2-3l NC inflammatory biomarkers, CRP 11.06, LDH 300, ddimer 425 Continue Decadron 6mg IV x 10 days Consult ID Acute CHF, unspecified Endorses orthopnea and has an elevated BNP Continue IV lasix echo ordered Coumadin use suspected for Oscar Luna, but patient is not sure. INR 3.3, will hold today's dose follow INR intraarticular fracture of right distal radius sustained in mechanical fall at the end of july initially treated at [facility] surgery delayed due to testing +for COVID Morbid Obesity BMI 48.4 Body habitus is likely contributing to respiratory status Hypothyroidism Continue Synthroid GERD Continue Prilosec Hypertension Blood Pressure controlled Continue lisinopril, metoprolol Hyperlipidemia Continue statin Mood Continue Lexapro dvt ppx -Coumadin Attending-Dr. Rosales Quality Stroke Does the patient have a stroke diagnosis?: No VTE Prior VTE?: No VTE Risk Level:: Medical - moderate - high VTE Device Contraindication: Treatment Not Indicated VTE Drug Contraindication: N/A - Med Ordered
[2021-08-27] MEDS: Acetaminophen 325 MG TABLET 650 MG PO (18:06)
[2021-08-27] MEDS: Atorvastatin Calcium 20 MG TABLET PO (20:31)
[2021-08-28] VITALS (8 sets, daily range): BP systolic 119–148; BP diastolic 56–83; PULSE 62–88; RESP 18–20; TEMP 36.1–36.7; O2SAT 90–95
[2021-08-28] MEDS: Omeprazole 20 MG CAPSULE.DR PO (05:53)
[2021-08-28] MEDS: Levothyroxine Sodium 175 MCG TABLET PO (05:53)
[2021-08-28 06:37] LABS: INTERNATIONAL NORM RATIO 2.8 (0.9-1.1)
[2021-08-28 07:03] LABS: Anion Gap 14 (12-20); Blood Urea Nitrogen 23 mg/dL (9-16); Calcium 8.2 mg/dL (8.4-10.2); Carbon Dioxide 32 mmol/L (22-29); Chloride 102 mmol/L (96-108); Estimated Glomerular Filt Rate > 60; Glucose Random 97 mg/dL (60-115); Potassium 3.7 mmol/L (3.3-5.1); Sodium 144 mmol/L (135-145)
[2021-08-28] MEDS: Furosemide 20 MG/2 ML VIAL IVPUSH ×2 (08:43→17:02)
[2021-08-28] MEDS: dexAMETHasone sod phosphate 4 MG/ML VIAL 6 MG IVPUSH (08:44)
[2021-08-28] MEDS: Escitalopram Oxalate 10 MG TABLET PO (08:44)
[2021-08-28] MEDS: Metoprolol Succinate ER 100 MG TAB.ER.24H 200 MG PO (08:44)
[2021-08-28] MEDS: lisinopriL 20 MG TABLET PO (08:44)
[2021-08-28] MEDS: 0.9 % Sodium Chloride Flush 3 ML SYRINGE IVFLUSH ×2 (08:45→21:42)
[2021-08-28] MEDS: Morphine Sulfate 2 MG/ML CARTRIDGE 1 MG IVPUSH ×2 (08:46→22:23)
[2021-08-28] MEDS: Nystatin Powder 15 GM BOTTLE 1 APPL TOPICAL ×2 (08:46→21:42)
--- NOTE | 2021-08-28 11:48 | HO.PM.IMPN ---
Subjective Subjective Date of Service: 08/28/21 Interval History: No acute issues overnight Review of Systems Denies chest pain Denies shortness of breath Denies nausea vomiting diarrhea Physical Exam Vital Signs: Vital Signs: Last Vital Signs Temp 98.1 F 08/28/21 07:42 Pulse 69 08/28/21 08:44 Resp 20 08/28/21 07:42 BP 142/73 H 08/28/21 08:44 Pulse Ox 90 L 08/28/21 07:42 Body Mass Index 48.4 Const: Other: No acute issues overnight Resp: Other: Clear to auscultation bilaterally no rales rhonchi or wheezes Cardio: Other: No S4; positive S1-S2; no S3 murmurs or gallops GI: Other: Soft nontender nondistended with normoactive bowel sounds Extrem: Other: No edema bilaterally Objective Data Active Medications Acetaminophen (Acetaminophen 325 Mg Tablet) 650 mg PO Q6H PRN PRN Reason: Fever Last Admin: 08/27/21 18:06 Dose: 650 mg Documented by: PENNY Atorvastatin Calcium (Atorvastatin Calcium 20 Mg Tablet) 20 mg PO BEDTIME [facility] Last Admin: 08/27/21 20:31 Dose: 20 mg Documented by: EHSAN Dexamethasone Sodium Phosphate (Dexamethasone Sod Phosphate 4 Mg/Ml Vial) 6 mg IVPUSH DAILY [facility] Stop: 09/04/21 09:01 Last Admin: 08/28/21 08:44 Dose: 6 mg Documented by: MELIDA Escitalopram Oxalate (Escitalopram Oxalate 10 Mg Tablet) 10 mg PO DAILY [facility] Last Admin: 08/28/21 08:44 Dose: 10 mg Documented by: MELIDA Furosemide (Furosemide 20 Mg/2 Ml Vial) 20 mg IVPUSH BID@0900,1800 [facility]; Protocol Last Admin: 08/28/21 08:43 Dose: 20 mg Documented by: MELIDA Levothyroxine Sodium (Levothyroxine Sodium 175 Mcg Tablet) 175 mcg PO DAILY@0600 [facility] Last Admin: 08/28/21 05:53 Dose: 175 mcg Documented by: EHSAN Lisinopril (Lisinopril 20 Mg Tablet) 20 mg PO DAILY [facility]; Protocol Last Admin: 08/28/21 08:44 Dose: 20 mg Documented by: MELIDA Metoprolol Succinate (Metoprolol Succinate Er 100 Mg Tab.Er.24h) 200 mg PO DAILY [facility]; Protocol Last Admin: 08/28/21 08:44 Dose: 200 mg Documented by: MELIDA Morphine Sulfate (Morphine Sulfate 2 Mg/Ml Cartridge) 1 mg IVPUSH Q6H PRN; Protocol PRN Reason: Shortness of Breath Last Admin: 08/28/21 08:46 Dose: 1 mg Documented by: MELIDA Nystatin (Nystatin Powder 15 Gm Bottle) 1 appl TOPICAL BID [facility]; Protocol Last Admin: 08/28/21 08:46 Dose: 1 appl Documented by: MELIDA Omeprazole (Omeprazole 20 Mg Capsule.) 20 mg PO DAILY@0630 [facility] Last Admin: 08/28/21 05:53 Dose: 20 mg Documented by: EHSAN Ondansetron HCl (Ondansetron Hcl 4 Mg/2 Ml Vial) 4 mg IVPUSH Q8H PRN PRN Reason: Nausea and Vomiting Pharmacy Consult (Consult Rx Perform Med Rec) 1 each MISCELLANE ONCE PRN PRN Reason: Consult order Sodium Chloride (0.9 % Sodium Chloride Flush 3 Ml Syringe) 3 ml IVFLUSH QSHIFT [facility] Last Admin: 08/28/21 08:45 Dose: 3 ml Documented by: MELIDA Warfarin Sodium (Warfarin Sodium 5 Mg Tablet) 5 mg PO DAILY@1800 [facility] Labs CBC & Chem 7: 08/27/21 05:58 08/28/21 06:12 Labs: Laboratory Results - last 24 hr 08/28/21 08/28/21 06:12 06:12 PT 33.0 H INR 2.8 H Anion Gap 14 Estim Creat Clear Calc 90.0 Estimated GFR > 60 Random Glucose 97 Calcium 8.2 L Microbiology Microbiology Results: Microbiology 08/26/21 07:27 Blood Culture - Preliminary Blood - Venous No growth after 48 hours. 08/26/21 06:39 Blood Culture - Preliminary Blood - Venous No growth after 48 hours. Assessment and Plan (1) COVID-19: Status: Acute (2) Congestive heart failure: Status: Acute Assessment and Plan: This is a 75 yo unvaccinated (to COVID) female who presents to the hospital with 3 to 4 days of progressive shortness of breath and generalized malaise. She reported being tested for [place] [facility] [place]. She now presents with respiratory symptoms. She will be admitted for further treatment. 1.COVID 19 Saturation mid 90s on 2-3l NC Continue Decadron 6mg IV x 10 days Consult ID 2.Acute CHF, unspecified Recheck BNP pending 3. Ppm on Coumadin Query paroxysmal AFib as underlying rhythm Coumadin held secondary to hyperprothrombinemia; restart today at 2.5 mg daily 4. Intraarticular fracture of right distal radius Plan as ordered 5.Hypothyroidism Continue Synthroid 6.GERD Continue Prilosec dvt ppx -Coumadin Quality Stroke Does the patient have a stroke diagnosis?: No VTE Prior VTE?: No VTE Risk Level:: Medical - moderate - high VTE Device Contraindication: Treatment Not Indicated VTE Drug Contraindication: N/A - Med Ordered
[2021-08-28] MEDS: Warfarin Sodium 5 MG TABLET PO (17:02)
[2021-08-28] MEDS: Atorvastatin Calcium 20 MG TABLET PO (21:42)
--- NOTE | 2021-08-28 22:37 | W.PM.IDCN ---
History of Present Illness Data of Consult Service Date: 08/27/21 Requesting physician: Rosaline Solo Primary Care Provider: Richard CAMACHO Reason for consult: shortness of breath She has shortness of breath for last eight to ten days. She had COVID test reported at [facility] on 08/23 She has cough She is unvaccinated [facility] Past Medical History Medical History (Updated 08/26/21 @ 21:16 by Rachael Crane MD) CAD (coronary artery disease) Hyperlipidemia Hypertension Surgical History Surgical History (Updated 08/26/21 @ 10:11 by Chapincito Rosales MD) History of appendectomy S/P placement of cardiac pacemaker Social History Social History (Updated 08/26/21 @ 10:11 by Chapincito Rosales MD) Household Members: Spouse Housing: House Do you presently have visiting nurse or other home services: No Alcohol intake: never Patient Tobacco Use Status: Never used Tobacco service: No Current occupational status: retired Meds Allergies Allergy/AdvReac Type Severity Reaction Status Date / Time No Known Allergies Allergy Unverified 07/02/20 16:44 Active Medications: Current Medications Acetaminophen (Acetaminophen 325 Mg Tablet) 650 mg PO Q6H PRN PRN Reason: Fever Last Admin: 08/27/21 18:06 Dose: 650 mg Documented by: Atorvastatin Calcium (Atorvastatin Calcium 20 Mg Tablet) 20 mg PO BEDTIME [facility] Last Admin: 08/28/21 21:42 Dose: 20 mg Documented by: Dexamethasone Sodium Phosphate (Dexamethasone Sod Phosphate 4 Mg/Ml Vial) 6 mg IVPUSH DAILY [facility] Stop: 09/04/21 09:01 Last Admin: 08/28/21 08:44 Dose: 6 mg Documented by: Escitalopram Oxalate (Escitalopram Oxalate 10 Mg Tablet) 10 mg PO DAILY [facility] Last Admin: 08/28/21 08:44 Dose: 10 mg Documented by: Furosemide (Furosemide 20 Mg/2 Ml Vial) 20 mg IVPUSH BID@0900,1800 [facility]; Protocol Last Admin: 08/28/21 17:02 Dose: 20 mg Documented by: Levothyroxine Sodium (Levothyroxine Sodium 175 Mcg Tablet) 175 mcg PO DAILY@0600 [facility] Last Admin: 08/28/21 05:53 Dose: 175 mcg Documented by: Lisinopril (Lisinopril 20 Mg Tablet) 20 mg PO DAILY [facility]; Protocol Last Admin: 08/28/21 08:44 Dose: 20 mg Documented by: Metoprolol Succinate (Metoprolol Succinate Er 100 Mg Tab.Er.24h) 200 mg PO DAILY [facility]; Protocol Last Admin: 08/28/21 08:44 Dose: 200 mg Documented by: Morphine Sulfate (Morphine Sulfate 2 Mg/Ml Cartridge) 1 mg IVPUSH Q6H PRN; Protocol PRN Reason: Shortness of Breath Last Admin: 08/28/21 22:23 Dose: 1 mg Documented by: Nystatin (Nystatin Powder 15 Gm Bottle) 1 appl TOPICAL BID [facility]; Protocol Last Admin: 08/28/21 21:42 Dose: 1 appl Documented by: Omeprazole (Omeprazole 20 Mg Capsule.Dr) 20 mg PO DAILY@0630 [facility] Last Admin: 08/28/21 05:53 Dose: 20 mg Documented by: Ondansetron HCl (Ondansetron Hcl 4 Mg/2 Ml Vial) 4 mg IVPUSH Q8H PRN PRN Reason: Nausea and Vomiting Pharmacy Consult (Consult Rx Perform Med Rec) 1 each MISCELLANE ONCE PRN PRN Reason: Consult order Sodium Chloride (0.9 % Sodium Chloride Flush 3 Ml Syringe) 3 ml IVFLUSH QSHIFT [facility] Last Admin: 08/28/21 21:42 Dose: 3 ml Documented by: Warfarin Sodium (Warfarin Sodium 5 Mg Tablet) 5 mg PO DAILY@1800 [facility] Last Admin: 08/28/21 17:02 Dose: 5 mg Documented by: Home Medications Medication Instructions Recorded Confirmed Last Taken Type ascorbic acid (vitamin C) 500 mg 500 mg PO DAILY 08/26/21 08/26/21 08/25/21 History tablet (Vitamin C) citalopram 20 mg tablet 20 mg PO DAILY 08/26/21 08/26/21 08/25/21 History furosemide 20 mg tablet 20 mg PO DAILY 08/26/21 08/26/21 08/25/21 History levothyroxine 175 mcg tablet 175 mcg PO DAILY 08/26/21 08/26/21 08/25/21 History lisinopril 20 mg tablet 20 mg PO DAILY 08/26/21 08/26/21 08/25/21 History metoprolol succinate 200 mg 200 mg PO DAILY 08/26/21 08/26/21 08/25/21 History tablet,extended release 24 hr multivitamin 1 tab PO DAILY 08/26/21 08/26/21 08/25/21 History omeprazole 20 mg capsule,delayed 20 mg PO DAILY 08/26/21 08/26/21 08/25/21 History release oxycodone 5 mg tablet 5 mg PO Q6H 08/26/21 08/26/21 08/25/21 History simvastatin 40 mg tablet 40 mg PO BEDTIME 08/26/21 08/26/21 08/25/21 History warfarin 5 mg tablet (Jantoven) 1 tab PO DAILY@1800 08/26/21 08/26/21 08/25/21 History Physical Exam Vital Signs: Vital Signs: Last Vital Signs Temp 97.5 F 08/28/21 19:26 Pulse 80 08/28/21 19:26 Resp 20 08/28/21 22:23 BP 129/65 08/28/21 19:26 Pulse Ox 95 08/28/21 19:26 Body Mass Index 48.4 Const: General: cooperative Eyes: General: appearance normal, both eyes and all related structures Resp: Effort & Inspection: normal respiratory effort and able to speak in complete sentences Cardio: Rate: regular rate Rhythm: regular rhythm GI: Palpation (GI): Soft to palpation and nontender Extrem: General: Yes normal to inspection Results Labs CBC & Chem 7: 08/27/21 05:58 08/28/21 06:12 Labs: BMP 08/28/21 06:12 Sodium 144 Potassium 3.7 Chloride 102 Carbon Dioxide 32 H BUN 23 H Creatinine 0.79 Calcium 8.2 L Microbiology Microbiology Results: Microbiology 08/26/21 07:27 Blood - Venous Blood Culture - Preliminary No growth after 48 hours. 08/26/21 06:39 Blood - Venous Blood Culture - Preliminary No growth after 48 hours. Assessment and Plan (1) COVID-19: Status: Acute She has had symptoms over seven days She is taking Dexamethasone for hypoxia (2) Hypoxemia: Status: Acute Would give Dexamethasone 6 mg a day po or IV for hypoxia No antibiotics needed. VTE prophylaxis
[2021-08-29] VITALS (7 sets, daily range): BP systolic 106–145; BP diastolic 69–83; PULSE 58–88; RESP 18–20; TEMP 36.1–37; O2SAT 90–95
[2021-08-29] MEDS: Levothyroxine Sodium 175 MCG TABLET PO (05:48)
[2021-08-29] MEDS: Omeprazole 20 MG CAPSULE.DR PO (05:48)
[2021-08-29 06:46] LABS: MANUAL DIFF FLAG NO
[2021-08-29 07:14] LABS: Hematocrit 41.4 % (37.0-47.0); Hemoglobin 13.4 g/dl (12.0-16.0); Imm Gran Abs Auto 0.05 X10*3/uL (0.00-0.03); Imm Gran Pct Auto 0.6 % (0.0-0.4); Lymphocytes Percent Auto 13.1 % (20-40); Mean Corpuscular HGB Conc 32.4 g/dl (31.0-35.0); Mean Corpuscular Hemoglobin 32.6 pg (27.0-33.0); Mean Corpuscular Volume 100.7 fL (80.0-98.0); Mean Platelet Volume 11.5 fL (9.4-12.3); Monocytes Absolute Auto 0.4 X10*3/uL (0.1-1.2); Monocytes Percent Auto 5.7 % (2-11); Neutrophils Absolute Auto 6.3 x10*3/uL (2.0-8.3); Neutrophils Percent Auto 80.6 % (45-73); Platelet Count 186 X10*3/uL (160-400); Red Blood Count 4.11 X10*6/uL (4.20-5.50); Red Cell Distribution Width 15.2 % (11.0-16.0); White Blood Count 7.8 X10*3/uL (4.8-10.8)
[2021-08-29] MEDS: Morphine Sulfate 2 MG/ML CARTRIDGE 1 MG IVPUSH ×2 (07:20→19:13)
[2021-08-29 07:25] LABS: Prothrombin Time 35.2 SEC (9.9-13.0)
[2021-08-29 08:08] LABS: D Dimer 614 NG/ML
[2021-08-29 08:36] LABS: Alanine Aminotransferase 52 U/L (0-31); Alkaline Phosphatase 64 U/L (39-117); Anion Gap 14 (12-20); Aspartate Amino Transferase 71 U/L (5-31); Bilirubin Total 0.7 mg/dL (0.0-1.0); Blood Urea Nitrogen 28 mg/dL (9-16); C Reactive Protein 7.74 mg/dL (< or = 0.50); Calcium 8.3 mg/dL (8.4-10.2); Carbon Dioxide 35 mmol/L (22-29); Chloride 99 mmol/L (96-108); Creatinine Clr Calc Pharmacy 84.7; Estimated Glomerular Filt Rate > 60; Glucose Fasting 96 mg/dL (60-99); Magnesium 1.6 mg/dL (1.6-2.6); Potassium 4.1 mmol/L (3.3-5.1); Sodium 144 mmol/L (135-145); Total Protein 6.3 g/dL (6.5-8.0)
[2021-08-29 09:06] LABS: Procalcitonin 0.06 ng/mL
[2021-08-29] MEDS: Escitalopram Oxalate 10 MG TABLET PO (09:31)
[2021-08-29] MEDS: Metoprolol Succinate ER 100 MG TAB.ER.24H 200 MG PO (09:31)
[2021-08-29] MEDS: lisinopriL 20 MG TABLET PO (09:32)
[2021-08-29] MEDS: Furosemide 20 MG/2 ML VIAL IVPUSH ×2 (09:35→17:51)
[2021-08-29] MEDS: dexAMETHasone sod phosphate 4 MG/ML VIAL 6 MG IVPUSH (09:35)
[2021-08-29] MEDS: 0.9 % Sodium Chloride Flush 3 ML SYRINGE IVFLUSH ×3 (09:35→20:32)
--- NOTE | 2021-08-29 11:28 | HO.PM.IMPN ---
Subjective Subjective Date of Service: 08/29/21 Interval History: anxious short of breath no fever no chest pain Review of Systems Review of Systems: Yes all other systems are reviewed and are negative Physical Exam Vital Signs: Vital Signs: Last Vital Signs Temp 96.9 F 08/29/21 03:08 Pulse 88 08/29/21 09:32 Resp 20 08/29/21 03:08 BP 145/78 H 08/29/21 09:32 Pulse Ox 95 08/29/21 03:08 Body Mass Index 48.4 Gen: in no acute distress HEENT: sclera anicteric, moist mucus membranes Neck: supple Lungs: clear to auscultation bilaterally Heart: regular rate and rhythm, no murmurs Abd: soft, non-tender, non-distended, morbidly obese Ext: no edema, RUE in splint Skin: warm/well-perfused Neuro: alert and oriented x3, no focal findings Psych: appropriate affect Objective Data Active Medications Acetaminophen (Acetaminophen 325 Mg Tablet) 650 mg PO Q6H PRN PRN Reason: Fever Last Admin: 08/27/21 18:06 Dose: 650 mg Documented by: PENNY Atorvastatin Calcium (Atorvastatin Calcium 20 Mg Tablet) 20 mg PO BEDTIME [facility] Last Admin: 08/28/21 21:42 Dose: 20 mg Documented by: LUIS M Dexamethasone Sodium Phosphate (Dexamethasone Sod Phosphate 4 Mg/Ml Vial) 6 mg IVPUSH DAILY [facility] Stop: 09/04/21 09:01 Last Admin: 08/29/21 09:35 Dose: 6 mg Documented by: STEPHANE Escitalopram Oxalate (Escitalopram Oxalate 10 Mg Tablet) 10 mg PO DAILY [facility] Last Admin: 08/29/21 09:31 Dose: 10 mg Documented by: STEPHANE Furosemide (Furosemide 20 Mg/2 Ml Vial) 20 mg IVPUSH BID@0900,1800 [facility]; Protocol Last Admin: 08/29/21 09:35 Dose: 20 mg Documented by: STEPHANE Levothyroxine Sodium (Levothyroxine Sodium 175 Mcg Tablet) 175 mcg PO DAILY@0600 [facility] Last Admin: 08/29/21 05:48 Dose: 175 mcg Documented by: LUIS M Lisinopril (Lisinopril 20 Mg Tablet) 20 mg PO DAILY [facility]; Protocol Last Admin: 08/29/21 09:32 Dose: 20 mg Documented by: STEPHANE Metoprolol Succinate (Metoprolol Succinate Er 100 Mg Tab.Er.24h) 200 mg PO DAILY [facility]; Protocol Last Admin: 08/29/21 09:31 Dose: 200 mg Documented by: STEPHANE Morphine Sulfate (Morphine Sulfate 2 Mg/Ml Cartridge) 1 mg IVPUSH Q6H PRN; Protocol PRN Reason: Shortness of Breath Last Admin: 08/29/21 07:20 Dose: 1 mg Documented by: STEPHANE Nystatin (Nystatin Powder 15 Gm Bottle) 1 appl TOPICAL BID [facility]; Protocol Last Admin: 08/28/21 21:42 Dose: 1 appl Documented by: LUIS M Omeprazole (Omeprazole 20 Mg Capsule.Dr) 20 mg PO DAILY@0630 [facility] Last Admin: 08/29/21 05:48 Dose: 20 mg Documented by: LUIS M Ondansetron HCl (Ondansetron Hcl 4 Mg/2 Ml Vial) 4 mg IVPUSH Q8H PRN PRN Reason: Nausea and Vomiting Pharmacy Consult (Consult Rx Perform Med Rec) 1 each MISCELLANE ONCE PRN PRN Reason: Consult order Sodium Chloride (0.9 % Sodium Chloride Flush 3 Ml Syringe) 3 ml IVFLUSH QSHIFT [facility] Last Admin: 08/29/21 09:35 Dose: 3 ml Documented by: STEPHANE Warfarin Sodium (Warfarin Sodium 2.5 Mg Tablet) 2.5 mg PO DAILY@1800 [facility] Labs CBC & Chem 7: 08/29/21 06:17 08/29/21 06:17 Labs: Laboratory Results - last 24 hr 08/29/21 08/29/21 08/29/21 06:17 06:17 06:17 MCV 100.7 H MCH 32.6 MCHC 32.4 RDW 15.2 Plt Count 186 MPV 11.5 Immature Gran % (Auto) 0.6 H Neut % (Auto) 80.6 H Lymph % (Auto) 13.1 L [place] % (Auto) 5.7 Eos % (Auto) 0.0 Baso % (Auto) 0.0 Lymph # (Auto) 1.0 L [place] # (Auto) 0.4 Eos # (Auto) 0.0 Baso # (Auto) 0.0 Abs Immat Gran (auto) 0.05 H Absolute Neuts (auto) 6.3 Absolute Nucleated RBC 0.000 Nucleated RBC % (auto) 0.0 PT 35.2 H INR 3.0 H D-Dimer 614 Anion Gap 14 Estim Creat Clear Calc 84.7 Estimated GFR > 60 Fasting Glucose 96 Calcium 8.3 L Magnesium 1.6 Total Bilirubin 0.7 AST 71 H ALT 52 H Alkaline Phosphatase 64 C-Reactive Protein 7.74 H Total Protein 6.3 L Albumin 3.0 L Procalcitonin 08/29/21 06:17 MCV MCH MCHC RDW Plt Count MPV Immature Gran % (Auto) Neut % (Auto) Lymph % (Auto) [place] % (Auto) Eos % (Auto) Baso % (Auto) Lymph # (Auto) [place] # (Auto) Eos # (Auto) Baso # (Auto) Abs Immat Gran (auto) Absolute Neuts (auto) Absolute Nucleated RBC Nucleated RBC % (auto) PT INR D-Dimer Anion Gap Estim Creat Clear Calc Estimated GFR Fasting Glucose Calcium Magnesium Total Bilirubin AST ALT Alkaline Phosphatase C-Reactive Protein Total Protein Albumin Procalcitonin 0.06 Microbiology Microbiology Results: Microbiology 08/26/21 07:27 Blood Culture - Preliminary Blood - Venous No growth after 48 hours. 08/26/21 06:39 Blood Culture - Preliminary Blood - Venous No growth after 48 hours. Assessment and Plan (1) COVID-19: Status: Acute (2) Congestive heart failure: Status: Acute Assessment and Plan: hospital d#4 75yo unvaccinated F presenting with 4d of dyspnea/malaisea, [place] [facility] [place] for [place] # acute hypoxic resp failure - currently on 6L O2 via [place]; wean as tolerated; encourage awake proning # COVID-19 PNA - dexamethasone d#01/23, ID following, trend inflammatory markers # HF unknown EF, acute/chronic # HTN - continue IV diuresis, trend BNP/I+O/weight, monitor BMP/Mg, -1.54L thus far, TTE pending - continue metoprolol succinate + lisinopril # AF on warfarin - continue warfarin, dose decreased to 2.5 mg daily, monitor INR # intra-articular R distal radius fx - outpt ORIF planned, continue splint # hypothyroidism - continue LT4 # GERD - continue PPI # mood disorder - continue escitalopram # VTE ppx - warfarin Quality Stroke Does the patient have a stroke diagnosis?: No VTE Prior VTE?: No VTE Risk Level:: Medical - moderate - high VTE Device Contraindication: Treatment Not Indicated VTE Drug Contraindication: N/A - Med Ordered
[2021-08-29] MEDS: Nystatin Powder 15 GM BOTTLE 1 APPL TOPICAL ×2 (12:43→21:14)
[2021-08-29] MEDS: Warfarin Sodium 2.5 MG TABLET PO (17:51)
[2021-08-29] MEDS: Atorvastatin Calcium 20 MG TABLET PO (20:32)
[2021-08-29] MEDS: Acetaminophen 325 MG TABLET 650 MG PO (20:32)
[2021-08-30] VITALS (11 sets, daily range): BP systolic 116–137; BP diastolic 62–78; PULSE 60–88; RESP 18–25; TEMP 36.1–36.7; O2SAT 90–99
[2021-08-30] MEDS: Omeprazole 20 MG CAPSULE.DR PO (04:54)
[2021-08-30] MEDS: Levothyroxine Sodium 175 MCG TABLET PO (04:54)
[2021-08-30 06:57] LABS: MANUAL DIFF FLAG NO
[2021-08-30 07:02] LABS: Hematocrit 40.1 % (37.0-47.0); Hemoglobin 13.2 g/dl (12.0-16.0); Imm Gran Abs Auto 0.04 X10*3/uL (0.00-0.03); Imm Gran Pct Auto 0.5 % (0.0-0.4); Lymphocytes Absolute Auto 0.8 X10*3/uL (1.2-4.9); Lymphocytes Percent Auto 10.6 % (20-40); Mean Corpuscular HGB Conc 32.9 g/dl (31.0-35.0); Mean Corpuscular Hemoglobin 32.7 pg (27.0-33.0); Mean Corpuscular Volume 99.3 fL (80.0-98.0); Mean Platelet Volume 11.5 fL (9.4-12.3); Monocytes Absolute Auto 0.3 X10*3/uL (0.1-1.2); Monocytes Percent Auto 4.2 % (2-11); Neutrophils Absolute Auto 6.3 x10*3/uL (2.0-8.3); Neutrophils Percent Auto 84.7 % (45-73); Platelet Count 183 X10*3/uL (160-400); Red Blood Count 4.04 X10*6/uL (4.20-5.50); White Blood Count 7.4 X10*3/uL (4.8-10.8)
[2021-08-30 07:08] LABS: INTERNATIONAL NORM RATIO 3.9 (0.9-1.1); Prothrombin Time 45.2 SEC (9.9-13.0)
[2021-08-30 07:21] LABS: B Type Natriuretic Peptide 219 pg/mL (<100)
[2021-08-30 07:26] LABS: Alanine Aminotransferase 79 U/L (0-31); Alkaline Phosphatase 65 U/L (39-117); Anion Gap 14 (12-20); Aspartate Amino Transferase 93 U/L (5-31); Bilirubin Total 0.7 mg/dL (0.0-1.0); Blood Urea Nitrogen 32 mg/dL (9-16); Calcium 8.3 mg/dL (8.4-10.2); Carbon Dioxide 35 mmol/L (22-29); Chloride 98 mmol/L (96-108); Estimated Glomerular Filt Rate > 60; Glucose Fasting 98 mg/dL (60-99); Magnesium 1.7 mg/dL (1.6-2.6); Potassium 3.7 mmol/L (3.3-5.1); Sodium 143 mmol/L (135-145); Total Protein 6.4 g/dL (6.5-8.0)
--- NOTE | 2021-08-30 08:38 | MHC.CM.PN ---
FEMALE 75 DX COVID+ NO DISCHARGE TODAY R/T INCREASING NEED OR SUPPLEMENTAL OXYGEN 7L 92% DP HOME WITH [facility]. FAMILY WILL PROVIDE TRANSPORTATION HOME.
[2021-08-30] MEDS: Furosemide 20 MG/2 ML VIAL IVPUSH ×2 (08:59→17:12)
[2021-08-30] MEDS: lisinopriL 20 MG TABLET PO (08:59)
[2021-08-30] MEDS: Metoprolol Succinate ER 100 MG TAB.ER.24H 200 MG PO (08:59)
[2021-08-30] MEDS: dexAMETHasone sod phosphate 4 MG/ML VIAL 6 MG IVPUSH (08:59)
[2021-08-30] MEDS: 0.9 % Sodium Chloride Flush 3 ML SYRINGE IVFLUSH ×2 (09:00→17:12)
[2021-08-30] MEDS: Escitalopram Oxalate 10 MG TABLET PO (09:01)
[2021-08-30] MEDS: Nystatin Powder 15 GM BOTTLE 1 APPL TOPICAL ×2 (09:02→22:17)
--- NOTE | 2021-08-30 11:26 | HO.PM.IMPN ---
Subjective Subjective Date of Service: 08/30/21 Interval History: c/o dyspnea though mostly due to anxiety still on O2 6L via [place] Review of Systems Review of Systems: Yes all other systems are reviewed and are negative Physical Exam Vital Signs: Vital Signs: Last Vital Signs Temp 97.6 F 08/30/21 08:00 Pulse 60 08/30/21 08:59 Resp 25 H 08/30/21 08:00 BP 127/75 08/30/21 08:00 Pulse Ox 92 08/30/21 08:00 Body Mass Index 48.4 Gen: in no acute distress HEENT: sclera anicteric, moist mucus membranes Neck: supple Lungs: clear to auscultation bilaterally Heart: regular rate and rhythm, no murmurs Abd: soft, non-tender, non-distended, morbidly obese Ext: no edema, RUE in splint Skin: warm/well-perfused Neuro: alert and oriented x3, no focal findings Psych: appropriate affect Objective Data Active Medications Acetaminophen (Acetaminophen 325 Mg Tablet) 650 mg PO Q6H PRN PRN Reason: Fever Last Admin: 08/29/21 20:32 Dose: 650 mg Documented by: SADIA Atorvastatin Calcium (Atorvastatin Calcium 20 Mg Tablet) 20 mg PO BEDTIME [facility] Last Admin: 08/29/21 20:32 Dose: 20 mg Documented by: SADIA Dexamethasone Sodium Phosphate (Dexamethasone Sod Phosphate 4 Mg/Ml Vial) 6 mg IVPUSH DAILY [facility] Stop: 09/04/21 09:01 Last Admin: 08/30/21 08:59 Dose: 6 mg Documented by: SCOTT Escitalopram Oxalate (Escitalopram Oxalate 10 Mg Tablet) 10 mg PO DAILY [facility] Last Admin: 08/30/21 09:01 Dose: 10 mg Documented by: SCOTT Furosemide (Furosemide 20 Mg/2 Ml Vial) 20 mg IVPUSH BID@0900,1800 [facility]; Protocol Last Admin: 08/30/21 08:59 Dose: 20 mg Documented by: SCOTT Levothyroxine Sodium (Levothyroxine Sodium 175 Mcg Tablet) 175 mcg PO DAILY@0600 [facility] Last Admin: 08/30/21 04:54 Dose: 175 mcg Documented by: SADIA Lisinopril (Lisinopril 20 Mg Tablet) 20 mg PO DAILY [facility]; Protocol Last Admin: 08/30/21 08:59 Dose: 20 mg Documented by: SCOTT Metoprolol Succinate (Metoprolol Succinate Er 100 Mg Tab.Er.24h) 200 mg PO DAILY [facility]; Protocol Last Admin: 08/30/21 08:59 Dose: 200 mg Documented by: SCOTT Morphine Sulfate (Morphine Sulfate 2 Mg/Ml Cartridge) 1 mg IVPUSH Q6H PRN; Protocol PRN Reason: Shortness of Breath Last Admin: 08/29/21 19:13 Dose: 1 mg Documented by: STEPHANE Nystatin (Nystatin Powder 15 Gm Bottle) 1 appl TOPICAL BID [facility]; Protocol Last Admin: 08/30/21 09:02 Dose: 1 appl Documented by: SCOTT Comments: in covid room so didnt take out to scan Omeprazole (Omeprazole 20 Mg Capsule.) 20 mg PO DAILY@0630 [facility] Last Admin: 08/30/21 04:54 Dose: 20 mg Documented by: SADIA Ondansetron HCl (Ondansetron Hcl 4 Mg/2 Ml Vial) 4 mg IVPUSH Q8H PRN PRN Reason: Nausea and Vomiting Pharmacy Consult (Consult Rx Perform Med Rec) 1 each MISCELLANE ONCE PRN PRN Reason: Consult order Sodium Chloride (0.9 % Sodium Chloride Flush 3 Ml Syringe) 3 ml IVFLUSH QSHIFT [facility] Last Admin: 08/30/21 09:00 Dose: 3 ml Documented by: SCOTT Warfarin Sodium (Warfarin Sodium 2.5 Mg Tablet) 2.5 mg PO DAILY@1800 [facility] Last Admin: 08/29/21 17:51 Dose: 2.5 mg Documented by: STEPHANE Labs CBC & Chem 7: 08/30/21 06:25 08/30/21 06:25 Labs: Laboratory Results - last 24 hr 08/30/21 08/30/21 08/30/21 06:25 06:25 06:25 MCV 99.3 H MCH 32.7 MCHC 32.9 RDW 15.0 Plt Count 183 MPV 11.5 Immature Gran % (Auto) 0.5 H Neut % (Auto) 84.7 H Lymph % (Auto) 10.6 L [place] % (Auto) 4.2 Eos % (Auto) 0.0 Baso % (Auto) 0.0 Lymph # (Auto) 0.8 L [place] # (Auto) 0.3 Eos # (Auto) 0.0 Baso # (Auto) 0.0 Abs Immat Gran (auto) 0.04 H Absolute Neuts (auto) 6.3 Absolute Nucleated RBC 0.000 Nucleated RBC % (auto) 0.0 PT 45.2 H INR 3.9 H Anion Gap 14 Estim Creat Clear Calc 90.0 Estimated GFR > 60 Fasting Glucose 98 Calcium 8.3 L Magnesium 1.7 Total Bilirubin 0.7 AST 93 H ALT 79 H Alkaline Phosphatase 65 B-Natriuretic Peptide Total Protein 6.4 L Albumin 3.0 L 08/30/21 06:25 MCV MCH MCHC RDW Plt Count MPV Immature Gran % (Auto) Neut % (Auto) Lymph % (Auto) [place] % (Auto) Eos % (Auto) Baso % (Auto) Lymph # (Auto) [place] # (Auto) Eos # (Auto) Baso # (Auto) Abs Immat Gran (auto) Absolute Neuts (auto) Absolute Nucleated RBC Nucleated RBC % (auto) PT INR Anion Gap Estim Creat Clear Calc Estimated GFR Fasting Glucose Calcium Magnesium Total Bilirubin AST ALT Alkaline Phosphatase B-Natriuretic Peptide 219 H Total Protein Albumin Assessment and Plan (1) COVID-19: Status: Acute (2) Congestive heart failure: Status: Acute Assessment and Plan: hospital d#5 75yo unvaccinated F presenting with 4d of dyspnea/malaisea, tested positive for COVID [place] [facility] [place], admitted for hypoxia # acute hypoxic resp failure - currently on 6L O2 via [place]; wean as tolerated; encourage awake proning # COVID-19 PNA - dexamethasone d#02/22, ID following, trend inflammatory markers # HF unknown EF, acute/chronic # HTN - continue IV diuresis, trend BNP/I+O/weight, monitor BMP/Mg, -1.3L thus far, TTE pending - continue metoprolol succinate + lisinopril # AF on warfarin - monitor INR, holding warfarin for supratherapeutic INR # intra-articular R distal radius fx - outpt ORIF planned, continue splint # hypothyroidism - continue LT4 # GERD - continue PPI # mood disorder - continue escitalopram # VTE ppx - warfarin Quality Stroke Does the patient have a stroke diagnosis?: No VTE Prior VTE?: No VTE Risk Level:: Medical - moderate - high VTE Device Contraindication: Treatment Not Indicated VTE Drug Contraindication: N/A - Med Ordered
[2021-08-30] MEDS: Morphine Sulfate 2 MG/ML CARTRIDGE 1 MG IVPUSH (12:46)
[2021-08-30 13:15] LABS: ABG HCO3 36 mmol/L (22-26); ABG pCO2 39 mmHg (32-45); ABG pCO2 TC 38 mmHg (32-45); ABG pH 7.57 (7.35-7.45); ABG pH TC 7.57 (7.35-7.45); ABG pO2 68 mmHg (83-108); ABG pO2 TC 66 (83-108)
[2021-08-30 14:32] LABS: ABG Refer to POC result
[2021-08-30] MEDS: Morphine Sulfate 2 MG/ML CARTRIDGE IVPUSH (18:39)
[2021-08-30] MEDS: Acetaminophen 325 MG TABLET 650 MG PO (21:28)
[2021-08-30] MEDS: Atorvastatin Calcium 20 MG TABLET PO (21:28)
[2021-08-31] VITALS (8 sets, daily range): BP systolic 119–145; BP diastolic 60–81; PULSE 59–80; RESP 16–24; TEMP 36.1–37.8; O2SAT 90–95
[2021-08-31] MEDS: 0.9 % Sodium Chloride Flush 3 ML SYRINGE IVFLUSH ×4 (00:37→21:27)
[2021-08-31] MEDS: Levothyroxine Sodium 175 MCG TABLET PO (05:16)
[2021-08-31] MEDS: Omeprazole 20 MG CAPSULE.DR PO (05:16)
[2021-08-31 07:05] LABS: MANUAL DIFF FLAG NO
[2021-08-31 07:11] LABS: Basophils Percent Auto 0.1 % (0-2); Hematocrit 42.4 % (37.0-47.0); Imm Gran Abs Auto 0.05 X10*3/uL (0.00-0.03); Imm Gran Pct Auto 0.6 % (0.0-0.4); Lymphocytes Absolute Auto 0.7 X10*3/uL (1.2-4.9); Lymphocytes Percent Auto 8.2 % (20-40); Mean Corpuscular Hemoglobin 32.7 pg (27.0-33.0); Mean Corpuscular Volume 99.1 fL (80.0-98.0); Mean Platelet Volume 11.8 fL (9.4-12.3); Monocytes Absolute Auto 0.3 X10*3/uL (0.1-1.2); Monocytes Percent Auto 3.4 % (2-11); Neutrophils Absolute Auto 7.8 x10*3/uL (2.0-8.3); Neutrophils Percent Auto 87.7 % (45-73); Platelet Count 180 X10*3/uL (160-400); Red Blood Count 4.28 X10*6/uL (4.20-5.50); Red Cell Distribution Width 14.9 % (11.0-16.0); White Blood Count 8.9 X10*3/uL (4.8-10.8)
[2021-08-31 07:18] LABS: INTERNATIONAL NORM RATIO 3.9 (0.9-1.1); Prothrombin Time 45.1 SEC (9.9-13.0)
[2021-08-31 07:21] LABS: D Dimer 525 NG/ML
[2021-08-31 07:52] LABS: Alanine Aminotransferase 95 U/L (0-31); Albumin Level 3.2 g/dL (3.5-5.0); Alkaline Phosphatase 70 U/L (39-117); Anion Gap 12 (12-20); Aspartate Amino Transferase 96 U/L (5-31); Bilirubin Total 0.7 mg/dL (0.0-1.0); Blood Urea Nitrogen 34 mg/dL (9-16); C Reactive Protein 9.51 mg/dL (< or = 0.50); Calcium 8.4 mg/dL (8.4-10.2); Carbon Dioxide 38 mmol/L (22-29); Chloride 96 mmol/L (96-108); Creatinine Clr Calc Pharmacy 85.7; Estimated Glomerular Filt Rate > 60; Glucose Fasting 100 mg/dL (60-99); Sodium 142 mmol/L (135-145); Total Protein 6.6 g/dL (6.5-8.0)
[2021-08-31 08:08] LABS: Procalcitonin 0.04 ng/mL
[2021-08-31] MEDS: Furosemide 20 MG/2 ML VIAL IVPUSH ×2 (11:28→17:06)
[2021-08-31] MEDS: Famotidine 20 MG TABLET PO ×2 (11:28→21:27)
[2021-08-31] MEDS: dexAMETHasone sod phosphate 4 MG/ML VIAL 6 MG IVPUSH (11:28)
[2021-08-31] MEDS: lisinopriL 20 MG TABLET PO (11:29)
[2021-08-31] MEDS: Escitalopram Oxalate 10 MG TABLET PO (11:29)
[2021-08-31] MEDS: Zinc Sulfate 220 MG CAPSULE PO (11:29)
[2021-08-31] MEDS: Nystatin Powder 15 GM BOTTLE 1 APPL TOPICAL ×2 (11:29→21:27)
[2021-08-31] MEDS: Metoprolol Succinate ER 100 MG TAB.ER.24H 200 MG PO (11:29)
[2021-08-31] MEDS: ALPRAZolam 0.5 MG TABLET PO (12:48)
[2021-08-31] MEDS: Acetaminophen 325 MG TABLET 650 MG PO (17:56)
--- NOTE | 2021-08-31 18:21 | P.PNIM_ITS ---
Subjective Subjective Date of Service: 08/31/21 Interval History: Acute hypoxemic respiratory failure secondary to COVID Review of Systems Shortness of breath slowly improving, still has anxiety component. Denies any chest pain or abdominal pain or nausea or vomiting or diarrhea. Physical Exam Vital Signs: Vital Signs: Last Vital Signs Temp 96.9 F 08/31/21 15:12 Pulse 59 08/31/21 15:12 Resp 20 08/31/21 15:12 BP 130/71 08/31/21 15:12 Pulse Ox 95 08/31/21 15:12 Body Mass Index 48.4 Gen: in no acute distress anxious Lungs: clear to auscultation bilaterally, no rales or wheezing Heart: regular rate and rhythm, no murmurs Abd: soft, non-tender, non-distended, morbidly obese Ext: no edema, RUE in splint Skin: warm/well-perfused Neuro: alert and oriented x3, no focal findings Psych: appropriate affect Objective Data Active Medications Acetaminophen (Acetaminophen 325 Mg Tablet) 650 mg PO Q6H PRN PRN Reason: Fever Last Admin: 08/31/21 17:56 Dose: 650 mg Documented by: SUMAYA Atorvastatin Calcium (Atorvastatin Calcium 20 Mg Tablet) 20 mg PO BEDTIME [facility] Last Admin: 08/30/21 21:28 Dose: 20 mg Documented by: SADIA Dexamethasone Sodium Phosphate (Dexamethasone Sod Phosphate 4 Mg/Ml Vial) 6 mg IVPUSH DAILY [facility] Stop: 09/04/21 09:01 Last Admin: 08/31/21 11:28 Dose: 6 mg Documented by: SUMAYA Escitalopram Oxalate (Escitalopram Oxalate 10 Mg Tablet) 10 mg PO DAILY [facility] Last Admin: 08/31/21 11:29 Dose: 10 mg Documented by: SUMAYA Famotidine (Famotidine 20 Mg Tablet) 20 mg PO BID [facility] Last Admin: 08/31/21 11:28 Dose: 20 mg Documented by: SUMAYA Furosemide (Furosemide 20 Mg/2 Ml Vial) 20 mg IVPUSH BID@0900,1800 [facility]; Protocol Last Admin: 08/31/21 17:06 Dose: 20 mg Documented by: SUMAYA Levothyroxine Sodium (Levothyroxine Sodium 175 Mcg Tablet) 175 mcg PO DAILY@0 600 [facility] Last Admin: 08/31/21 05:16 Dose: 175 mcg Documented by: SADIA Lisinopril (Lisinopril 20 Mg Tablet) 20 mg PO DAILY [facility]; Protocol Last Admin: 08/31/21 11:29 Dose: 20 mg Documented by: SUMAYA Metoprolol Succinate (Metoprolol Succinate Er 100 Mg Tab.Er.24h) 200 mg PO DAILY [facility]; Protocol Last Admin: 08/31/21 11:29 Dose: 200 mg Documented by: SUMAYA Morphine Sulfate (Morphine Sulfate 2 Mg/Ml Cartridge) 2 mg IVPUSH Q4H PRN; Protocol PRN Reason: Shortness of Breath Last Admin: 08/30/21 18:39 Dose: 2 mg Documented by: SCOTT Nystatin (Nystatin Powder 15 Gm Bottle) 1 appl TOPICAL BID [facility]; Protocol Last Admin: 08/31/21 11:29 Dose: 1 appl Documented by: SUMAYA Omeprazole (Omeprazole 20 Mg Capsule.) 20 mg PO DAILY@0630 [facility] Last Admin: 08/31/21 05:16 Dose: 20 mg Documented by: SADIA Ondansetron HCl (Ondansetron Hcl 4 Mg/2 Ml Vial) 4 mg IVPUSH Q8H PRN PRN Reason: Nausea and Vomiting Pharmacy Consult (Consult Rx Perform Med Rec) 1 each MISCELLANE ONCE PRN PRN Reason: Consult order Sodium Chloride (0.9 % Sodium Chloride Flush 3 Ml Syringe) 3 ml IVFLUSH QSHIFT [facility] Last Admin: 08/31/21 17:06 Dose: 3 ml Documented by: SUMAYA Warfarin Sodium (Warfarin Sodium 2.5 Mg Tablet) 2.5 mg PO DAILY@1800 [facility] Last Admin: 08/29/21 17:51 Dose: 2.5 mg Documented by: STEPHANE Zinc Sulfate (Zinc Sulfate 220 Mg Capsule) 220 mg PO DAILY [facility] Last Admin: 08/31/21 11:29 Dose: 220 mg Documented by: SUMAYA Labs CBC & Chem 7: 08/31/21 05:55 08/31/21 05:55 Labs: Laboratory Results - last 24 hr 08/30/21 08/31/21 08/31/21 13:08 05:55 05:55 MCV 99.1 H MCH 32.7 MCHC 33.0 RDW 14.9 Plt Count 180 MPV 11.8 Immature Gran % (Auto) 0.6 H Neut % (Auto) 87.7 H Lymph % (Auto) 8.2 L [place] % (Auto) 3.4 Eos % (Auto) 0.0 Baso % (Auto) 0.1 Lymph # (Auto) 0.7 L [place] # (Auto) 0.3 Eos # (Auto) 0.0 Baso # (Auto) 0.0 Abs Immat Gran (auto) 0.05 H Absolute Neuts (auto) 7.8 Absolute Nucleated RBC 0.000 Nucleated RBC % (auto) 0.0 PT 45.1 H INR 3.9 H D-Dimer 525 ABG Base Excess (Actual) Not Reportable Anion Gap Estim Creat Clear Calc Estimated GFR Fasting Glucose Calcium Total Bilirubin AST ALT Alkaline Phosphatase C-Reactive Protein Total Protein Albumin Procalcitonin 08/31/21 08/31/21 05:55 05:55 MCV MCH MCHC RDW Plt Count MPV Immature Gran % (Auto) Neut % (Auto) Lymph % (Auto) [place] % (Auto) Eos % (Auto) Baso % (Auto) Lymph # (Auto) [place] # (Auto) Eos # (Auto) Baso # (Auto) Abs Immat Gran (auto) Absolute Neuts (auto) Absolute Nucleated RBC Nucleated RBC % (auto) PT INR D-Dimer ABG Base Excess (Actual) Anion Gap 12 Estim Creat Clear Calc 85.7 Estimated GFR > 60 Fasting Glucose 100 H Calcium 8.4 Total Bilirubin 0.7 AST 96 H ALT 95 H Alkaline Phosphatase 70 C-Reactive Protein 9.51 H Total Protein 6.6 Albumin 3.2 L Procalcitonin 0.04 Microbiology Microbiology Results: Microbiology 08/26/21 07:27 Blood Culture - Final Blood - Venous No growth after 5 days. 08/26/21 06:39 Blood Culture - Final Blood - Venous No growth after 5 days. Assessment and Plan (1) COVID-19: Status: Acute (2) Congestive heart failure: Status: Acute Assessment and Plan: 75yo unvaccinated F presenting with 4d of dyspnea/malaisea, tested positive for COVID [place] [facility] [place]24[place], admitted for hypoxia 1.acute hypoxic resp failure - currently on 7L O2 via [place]; wean as tolerated; encourage awake proning 2.COVID-19 PNA - dexamethasone d#03/25, ID following, trend inflammatory markers 3. HF unknown EF, acute/chronic # HTN - continue IV diuresis, trend BNP/I+O/weight, monitor BMP/Mg, -1.3L thus far, TTE pending - continue metoprolol succinate + lisinopril 4. AF on warfarin - monitor INR, holding warfarin for supratherapeutic INR 5. intra-articular R distal radius fx - outpt ORIF planned, continue splint 6. hypothyroidism - continue LT4 7.GERD - continue PPI 8. mood disorder - continue escitalopram, still anxious given p.r.n. Xanax, also will add care team evaluation # VTE ppx Hold warfarin due to supratherapeutic INR 3.9. Quality Stroke Does the patient have a stroke diagnosis?: No VTE Prior VTE?: No VTE Risk Level:: Medical - moderate - high VTE Device Contraindication: Treatment Not Indicated VTE Drug Contraindication: N/A - Med Ordered
[2021-08-31] MEDS: Atorvastatin Calcium 20 MG TABLET PO (21:27)
[2021-09-01] VITALS (9 sets, daily range): BP systolic 103–129; BP diastolic 67–79; PULSE 59–77; RESP 18–20; TEMP 36.2–37.1; O2SAT 84–93
[2021-09-01] MEDS: Levothyroxine Sodium 175 MCG TABLET PO (06:04)
[2021-09-01 06:52] LABS: INTERNATIONAL NORM RATIO 3.8 (0.9-1.1); Prothrombin Time 44.9 SEC (9.9-13.0)
[2021-09-01 08:54] LABS: Anion Gap 14 (12-20); Blood Urea Nitrogen 31 mg/dL (9-16); Calcium 8.2 mg/dL (8.4-10.2); Carbon Dioxide 36 mmol/L (22-29); Chloride 94 mmol/L (96-108); Creatinine Clr Calc Pharmacy 88.9; Estimated Glomerular Filt Rate > 60; Glucose Random 105 mg/dL (60-115); Potassium 3.8 mmol/L (3.3-5.1); Sodium 140 mmol/L (135-145)
[2021-09-01] MEDS: ALPRAZolam 0.5 MG TABLET PO (09:36)
[2021-09-01] MEDS: Famotidine 20 MG TABLET PO ×2 (09:36→20:00)
[2021-09-01] MEDS: Metoprolol Succinate ER 100 MG TAB.ER.24H 200 MG PO (09:36)
[2021-09-01] MEDS: Escitalopram Oxalate 10 MG TABLET PO (09:36)
[2021-09-01] MEDS: lisinopriL 20 MG TABLET PO (09:36)
[2021-09-01] MEDS: Morphine Sulfate 2 MG/ML CARTRIDGE IVPUSH (09:37)
[2021-09-01] MEDS: dexAMETHasone sod phosphate 4 MG/ML VIAL 6 MG IVPUSH (09:37)
[2021-09-01] MEDS: 0.9 % Sodium Chloride Flush 3 ML SYRINGE IVFLUSH ×3 (09:37→20:00)
[2021-09-01] MEDS: Zinc Sulfate 220 MG CAPSULE PO (09:37)
[2021-09-01] MEDS: Nystatin Powder 15 GM BOTTLE 1 APPL TOPICAL ×2 (09:38→20:00)
[2021-09-01 13:32] LABS: Alanine Aminotransferase 136 U/L (0-31); Albumin Level 2.9 g/dL (3.5-5.0); Alkaline Phosphatase 69 U/L (39-117); Aspartate Amino Transferase 125 U/L (5-31); Bilirubin Direct 0.5 mg/dL (0.0-0.5); Bilirubin Total 0.8 mg/dL (0.0-1.0); C Reactive Protein 20.01 mg/dL (< or = 0.50); Lactate Dehydrogenase 428 U/L (122-220); Total Protein 6.3 g/dL (6.5-8.0)
[2021-09-01 13:50] LABS: Venous Blood Gas Refer to POC result
[2021-09-01 13:50] LABS: VBG Base Excess 15.2 mmol/L; VBG HCO3 42 mmol/L (22-26); VBG pCO2 58 mmHg; VBG pH 7.46 (7.32-7.43); VBG pO2 94 mmHg
--- NOTE | 2021-09-01 14:44 | CA_ITS ---
INDICATIONS: CHF HT: 5'6 WT: 299 BSA: BP: 127/77 STUDY QUALITY: Average ECG RHYTHM: Atrial flutter. CONCLUSIONS: FINDINGS: Left ventricle: Normal left ventricular ejection fraction. Ejection fraction is 60-65%. Moderately increased wall thickness. There are no regional wall motion abnormalities. Diastolic function is indeterminate. Right ventricle: Normal right ventricular size. Systolic function appears borderline. Left atrium: Normal in size. Aortic valve: Aortic valve is likely normal in structure. Mild calcification. Mild aortic valve stenosis. Peak aortic valve velocity is 2.37 m/sec. Mitral valve: Mitral valve is normal in structure and function. There is no significant stenosis or regurgitation. Pulmonic valve: Pulmonic valve is likely normal in structure and function. Tricuspid valve: Tricuspid valve appears normal in structure. There is trace tricuspid valve regurgitation. Aorta: Normal in size. PA: not well visualized. IVC: Normal in size. Pericardium: There is no pericardial effusion. M-MODE/2D MEASUREMENTS: LVd: 4.69 LVs: 3.22 IVSd: 13.8 IVSs: LVPWd: 1.25 LVPWs: ASC Aorta: 3.3 RVd: 3.81 AO root: LA: 4.8 AV Cusp: LVOT: 2.3 EF %: TAPSE: 1.41 OTHER: Effusion: Thrombus: Wall Motion: RVSP: 23 mmHg Mitral E/A: E Med. 6.42 E Lat. 12.6 AV Cusps Trileaflet: DOPPLER MEASUREMENTS: AORTIC PP mmHg MF mmHg Velocity: 237 Valve Area: 1.78 cm2 TRICUSPD: PP mmHg Valve Area: 221 RA Vol. IVC: 1.48 LA Vol. 35.6 RVS: MTDD
[2021-09-01 14:48] LABS: Ferritin 2254 ng/mL (10-250)
--- NOTE | 2021-09-01 16:41 | HO.PM.IMPN ---
Subjective Subjective Date of Service: 09/01/21 Interval History: Acute hypoxemic respiratory failure secondary to COVID Review of Systems Shortness of breath cabrera seems similar as of yesterday, still has anxiety Denies any chest pain or abdominal pain or fever chills or cough . Physical Exam Vital Signs: Vital Signs: Last Vital Signs Temp 98.7 F 09/01/21 15:25 Pulse 59 09/01/21 15:25 Resp 19 09/01/21 15:25 BP 113/72 09/01/21 15:25 Pulse Ox 93 09/01/21 15:25 Body Mass Index 48.4 Gen:anxious, speaking in the full sentences Lungs: clear to auscultation bilaterally, no rales or wheezing Heart: regular rate and rhythm, no murmurs Abd: soft, non-tender, non-distended, morbidly obese Ext: no edema, RUE in splint Skin: warm/well-perfused Neuro: alert and oriented x3, no focal findings Psych: appropriate affect Objective Data Active Medications Acetaminophen (Acetaminophen 325 Mg Tablet) 650 mg PO Q6H PRN PRN Reason: Fever Last Admin: 08/31/21 17:56 Dose: 650 mg Documented by: SUMAYA Alprazolam (Alprazolam 0.5 Mg Tablet) 0.5 mg PO DAILY [facility] Last Admin: 09/01/21 09:36 Dose: 0.5 mg Documented by: SCOTT Atorvastatin Calcium (Atorvastatin Calcium 20 Mg Tablet) 20 mg PO BEDTIME [facility] Last Admin: 08/31/21 21:27 Dose: 20 mg Documented by: VIANEY Dexamethasone Sodium Phosphate (Dexamethasone Sod Phosphate 4 Mg/Ml Vial) 6 mg IVPUSH DAILY [facility] Stop: 09/04/21 09:01 Last Admin: 09/01/21 09:37 Dose: 6 mg Documented by: SCOTT Escitalopram Oxalate (Escitalopram Oxalate 10 Mg Tablet) 10 mg PO DAILY [facility] Last Admin: 09/01/21 09:36 Dose: 10 mg Documented by: SCOTT Famotidine (Famotidine 20 Mg Tablet) 20 mg PO BID [facility] Last Admin: 09/01/21 09:36 Dose: 20 mg Documented by: SCOTT Furosemide (Furosemide 20 Mg/2 Ml Vial) 20 mg IVPUSH BID@0900,1800 [facility]; Protocol Last Admin: 08/31/21 17:06 Dose: 20 mg Documented by: SUMAYA Levothyroxine Sodium (Levothyroxine Sodium 175 Mcg Tablet) 175 mcg PO DAILY@0600 [facility] Last Admin: 09/01/21 06:04 Dose: 175 mcg Documented by: AGUSTIN Lisinopril (Lisinopril 20 Mg Tablet) 20 mg PO DAILY [facility]; Protocol Last Admin: 09/01/21 09:36 Dose: 20 mg Documented by: SCOTT Metoprolol Succinate (Metoprolol Succinate Er 100 Mg Tab.Er.24h) 200 mg PO DAILY [facility]; Protocol Last Admin: 09/01/21 09:36 Dose: 200 mg Documented by: SCOTT Morphine Sulfate (Morphine Sulfate 2 Mg/Ml Cartridge) 2 mg IVPUSH Q4H PRN; Protocol PRN Reason: Shortness of Breath Last Admin: 09/01/21 09:37 Dose: 2 mg Documented by: SCOTT Nystatin (Nystatin Powder 15 Gm Bottle) 1 appl TOPICAL BID [facility]; Protocol Last Admin: 09/01/21 09:38 Dose: 1 appl Documented by: SCOTT Omeprazole (Omeprazole 20 Mg Capsule.Dr) 20 mg PO DAILY@0630 [facility] Last Admin: 08/31/21 05:16 Dose: 20 mg Documented by: SADIA Ondansetron HCl (Ondansetron Hcl 4 Mg/2 Ml Vial) 4 mg IVPUSH Q8H PRN PRN Reason: Nausea and Vomiting Pharmacy Consult (Consult Rx Perform Med Rec) 1 each MISCELLANE ONCE PRN PRN Reason: Consult order Sodium Chloride (0.9 % Sodium Chloride Flush 3 Ml Syringe) 3 ml IVFLUSH QSHIFT [facility] Last Admin: 09/01/21 09:37 Dose: 3 ml Documented by: SCOTT Warfarin Sodium (Warfarin Sodium 2.5 Mg Tablet) 2.5 mg PO DAILY@1800 [facility] Last Admin: 08/29/21 17:51 Dose: 2.5 mg Documented by: STEPHANE Zinc Sulfate (Zinc Sulfate 220 Mg Capsule) 220 mg PO DAILY [facility] Last Admin: 09/01/21 09:37 Dose: 220 mg Documented by: CSOTT Labs CBC & Chem 7: 08/31/21 05:55 09/01/21 06:05 Labs: Laboratory Results - last 24 hr 09/01/21 09/01/21 09/01/21 06:05 06:05 13:43 PT 44.9 H INR 3.8 H VBG pH 7.46 H VBG pCO2 58 VBG pO2 94 VBG HCO3 42 H VBG O2 Saturation 96.0 VBG Base Excess 15.2 Anion Gap 14 Estim Creat Clear Calc 88.9 Estimated GFR > 60 Random Glucose 105 Calcium 8.2 L Ferritin 2254 H Total Bilirubin 0.8 Direct Bilirubin 0.5 AST 125 H ALT 136 H Alkaline Phosphatase 69 Lactate Dehydrogenase 428 H C-Reactive Protein 20.01 H Total Protein 6.3 L Albumin 2.9 L Assessment and Plan (1) COVID-19: Status: Acute (2) Congestive heart failure: Status: Acute Assessment and Plan: 75yo unvaccinated F presenting with 4d of dyspnea/malaisea, tested positive for COVID at [facility]/24/21, admitted for hypoxia 1.acute hypoxic resp failure still on 7L O2 via NC; wean as tolerated; encourage awake proning crp , ldh , ferritin going up vbg noted-ph compensated,slightly mild hypercarbic- added albuterol, alreday on steriods. seems imporving sob cabrera later in the day and with anxiety medication. 2.COVID-19 PNA - dexamethasone d#04/24, ID following 3. HF unknown EF, acute/chronic/HTN: - continue IV diuresis, trend BNP/I+O/weight, monitor BMP/Mg, -1.3L thus far, TTE pending - continue metoprolol succinate + lisinopril, given additional 1 dose lasix. 4. AF on warfarin - monitor INR, holding warfarin for supratherapeutic INR 5. intra-articular R distal radius fx - outpt ORIF planned, continue splint 6. hypothyroidism - continue LT4 7.GERD - continue PPI 8. mood disorder - continue escitalopram, still anxious given p.r.n. Xanax, also will add care team evaluation # VTE ppx Hold warfarin due to supratherapeutic INR 3.8. Quality Stroke Does the patient have a stroke diagnosis?: No VTE Prior VTE?: No VTE Risk Level:: Medical - moderate - high VTE Device Contraindication: Treatment Not Indicated VTE Drug Contraindication: N/A - Med Ordered
[2021-09-01] MEDS: Furosemide 20 MG/2 ML VIAL IVPUSH (17:01)
[2021-09-01] MEDS: Atorvastatin Calcium 20 MG TABLET PO (19:59)
[2021-09-02] VITALS (14 sets, daily range): BP systolic 96–144; BP diastolic 56–85; PULSE 60–88; RESP 18–19; TEMP 35.7–37; O2SAT 60–96
[2021-09-02 07:20] LABS: INTERNATIONAL NORM RATIO 2.7 (0.9-1.1)
[2021-09-02] MEDS: Albuterol Sulfate 90 MCG 8 GM INHALER 2 PUFF INHALE ×4 (08:43→19:52)
[2021-09-02] MEDS: Famotidine 20 MG TABLET PO ×2 (09:46→20:01)
[2021-09-02] MEDS: ALPRAZolam 0.5 MG TABLET PO (09:46)
[2021-09-02] MEDS: 0.9 % Sodium Chloride Flush 3 ML SYRINGE IVFLUSH ×3 (09:46→20:01)
[2021-09-02] MEDS: Zinc Sulfate 220 MG CAPSULE PO (09:47)
[2021-09-02] MEDS: Escitalopram Oxalate 10 MG TABLET PO (09:47)
[2021-09-02] MEDS: Levothyroxine Sodium 175 MCG TABLET PO (09:47)
[2021-09-02] MEDS: dexAMETHasone sod phosphate 4 MG/ML VIAL 6 MG IVPUSH (09:47)
[2021-09-02] MEDS: Metoprolol Succinate ER 100 MG TAB.ER.24H 200 MG PO (09:47)
[2021-09-02] MEDS: Furosemide 20 MG/2 ML VIAL IVPUSH ×2 (09:47→18:06)
[2021-09-02] MEDS: Nystatin Powder 15 GM BOTTLE 1 APPL TOPICAL ×2 (09:48→20:01)
[2021-09-02] MEDS: lisinopriL 20 MG TABLET PO (09:48)
[2021-09-02] MEDS: Acetaminophen 325 MG TABLET 650 MG PO (09:57)
--- NOTE | 2021-09-02 14:10 | HO.PM.IMPN ---
Subjective Subjective Date of Service: 09/02/21 Interval History: Acute hypoxemic respiratory failure secondary to COVID, Review of Systems Patient get desaturation with mild digestion, also has cough Denies any abdominal pain or nausea or vomiting or fever or chills. Physical Exam Vital Signs: Vital Signs: Last Vital Signs Temp 98.6 F 09/02/21 11:54 Pulse 88 09/02/21 13:26 Resp 19 09/02/21 11:54 BP 113/68 09/02/21 11:54 Pulse Ox 91 L 09/02/21 13:26 Body Mass Index 48.4 Physical exam: Less anxious, speaking in the full sentences Lungs: fair air entry, no rales or wheezing Heart: regular rate and rhythm, no murmurs Abd: soft, non-tender, non-distended, morbidly obese Ext: no edema, RUE in splint Skin: warm/well-perfused Neuro: alert and oriented x3, no focal findings Psych: appropriate affect Objective Data Active Medications Acetaminophen (Acetaminophen 325 Mg Tablet) 650 mg PO Q6H PRN PRN Reason: Fever Last Admin: 09/02/21 09:57 Dose: 650 mg Documented by: LOIS Albuterol Sulfate (Albuterol Sulfate 90 Mcg 8 Gm Inhaler) 2 puff INHALE RQ4H [facility] Last Admin: 09/02/21 11:57 Dose: 2 puff Documented by: KENZIE Alprazolam (Alprazolam 0.5 Mg Tablet) 0.5 mg PO DAILY [facility] Last Admin: 09/02/21 09:46 Dose: 0.5 mg Documented by: LOIS Atorvastatin Calcium (Atorvastatin Calcium 20 Mg Tablet) 20 mg PO BEDTIME [facility] Last Admin: 09/01/21 19:59 Dose: 20 mg Documented by: ELIANA Dexamethasone Sodium Phosphate (Dexamethasone Sod Phosphate 4 Mg/Ml Vial) 6 mg IVPUSH DAILY [facility] Stop: 09/04/21 09:01 Last Admin: 09/02/21 09:47 Dose: 6 mg Documented by: LOIS Escitalopram Oxalate (Escitalopram Oxalate 10 Mg Tablet) 10 mg PO DAILY [facility] Last Admin: 09/02/21 09:47 Dose: 10 mg Documented by: LOIS Famotidine (Famotidine 20 Mg Tablet) 20 mg PO BID [facility] Last Admin: 09/02/21 09:46 Dose: 20 mg Documented by: LOIS Furosemide (Furosemide 20 Mg/2 Ml Vial) 20 mg IVPUSH BID@0900,1800 [facility]; Protocol Last Admin: 09/02/21 09:47 Dose: 20 mg Documented by: LOIS Levothyroxine Sodium (Levothyroxine Sodium 175 Mcg Tablet) 175 mcg PO DAILY@0600 [facility] Last Admin: 09/02/21 09:47 Dose: 175 mcg Documented by: LOIS Lisinopril (Lisinopril 20 Mg Tablet) 20 mg PO DAILY [facility]; Protocol Last Admin: 09/02/21 09:48 Dose: 20 mg Documented by: LOIS Metoprolol Succinate (Metoprolol Succinate Er 100 Mg Tab.Er.24h) 200 mg PO DAILY [facility]; Protocol Last Admin: 09/02/21 09:47 Dose: 200 mg Documented by: LOIS Morphine Sulfate (Morphine Sulfate 2 Mg/Ml Cartridge) 2 mg IVPUSH Q4H PRN; Protocol PRN Reason: Shortness of Breath Last Admin: 09/01/21 09:37 Dose: 2 mg Documented by: SCOTT Nystatin (Nystatin Powder 15 Gm Bottle) 1 appl TOPICAL BID [facility]; Protocol Last Admin: 09/02/21 09:48 Dose: 1 appl Documented by: LOIS Omeprazole (Omeprazole 20 Mg Capsule.Dr) 20 mg PO DAILY@0630 [facility] Last Admin: 08/31/21 05:16 Dose: 20 mg Documented by: SADIA Ondansetron HCl (Ondansetron Hcl 4 Mg/2 Ml Vial) 4 mg IVPUSH Q8H PRN PRN Reason: Nausea and Vomiting Pharmacy Consult (Consult Rx Perform Med Rec) 1 each MISCELLANE ONCE PRN PRN Reason: Consult order Sodium Chloride (0.9 % Sodium Chloride Flush 3 Ml Syringe) 3 ml IVFLUSH QSHIFT [facility] Last Admin: 09/02/21 09:46 Dose: 3 ml Documented by: LOIS Warfarin Sodium (Warfarin Sodium 1 Mg Tablet) 1 mg PO DAILY@1800 [facility] Zinc Sulfate (Zinc Sulfate 220 Mg Capsule) 220 mg PO DAILY [facility] Last Admin: 09/02/21 09:47 Dose: 220 mg Documented by: LOIS Labs CBC & Chem 7: 08/31/21 05:55 09/01/21 06:05 Labs: Laboratory Results - last 24 hr 09/01/21 09/02/21 06:05 06:32 PT 31.0 H INR 2.7 H Ferritin 2254 H Assessment and Plan (1) COVID-19: Status: Acute (2) Hypoxemia: Status: Acute (3) Congestive heart failure: Status: Acute Assessment and Plan: 75yo unvaccinated F presenting with 4d of dyspnea/malaisea, [place] [facility] [place], admitted for hypoxia 1.acute hypoxic resp failure sats still flactuating with slight excersion still on 7L O2 via NC; wean as tolerated, encourage awake proning crp , ldh , ferritin going up yesterday , willrecheck in am. vbg noted-ph compensated echo pending albuterol, steriods. 2.COVID-19 PNA- dexamethasone d#8/10, ID following 3. HF unknown EF, acute/chronic/HTN: - continue IV diuresis, trend BNP/I+O/weight, monitor BMP/Mg, -1.3L thus far, TTE pending - continue metoprolol succinate + lisinopril, given additional 1 dose lasix. 4. AF on warfarin- monitor INR, holding warfarin for therapeutic INR, adjusted warfarin to 1 mg daily. 5. intra-articular R distal radius fx- outpt ORIF planned, continue splint 6. hypothyroidism- continue LT4 7.GERD- continue PPI 8. mood disorder- continue escitalopram, still anxious given p.r.n. Xanax, also will add care team evaluation VTE ppx back on warfarin. Quality Stroke Does the patient have a stroke diagnosis?: No VTE Prior VTE?: No VTE Risk Level:: Medical - moderate - high VTE Device Contraindication: Treatment Not Indicated VTE Drug Contraindication: N/A - Med Ordered
--- NOTE | 2021-09-02 14:12 | MHC.CARE ---
Pt is a 75 y/o , O[place]i speaking, female, who is previously unknown to the CARE Team.? Pt is presently in room 476 of the Intermediate Care Unit at [facility].? CARE Team has received a consult for this pt for anxiety.? Pt is being assessed by CARE Team to determine appropriate treatment recommendations.? Pt has a hx of anxiety, is and has been compliant with her medications as prescribed.? No known hx of substance use or suicide attempts. CARE Team contacts pt?s , Mr. John Sánchez.? Mr. Sánchez stated that pt has been experiencing anxiety for ?Many years? stating it has been perhaps 5 or more years.? He reports pt has been compliant with her medications as prescribed to the best of his knowledge.? Pt has no day structure in place but does enjoy ?Needle work?, crocheting etc. but can no longer engage in that activity since her fall.? Pt fell on her way to the kitchen while in route to make supper, breaking her arm and nose.? He reports pt had a heart attack in 1999 which necessitated a pace maker.? Mr. Sánchez speculates that this event may have been what caused the anxiety to develop.? Prior to the heart attack and about 5 years ago, pt did not appear to have anxiety.? Pt does not have a psychiatrist or therapist at present.? Her medications are presently being prescribed by her PCP, Dr. Alvarado. Multiple attempts were made to contact pt in her room via phone.? Pt?s nurse was made aware and asked to place the phone within reach of pt.? which she had done.? Pt did not answer any calls.
[2021-09-02] MEDS: Warfarin Sodium 1 MG TABLET PO (18:06)
[2021-09-02] MEDS: Atorvastatin Calcium 20 MG TABLET PO (20:01)
[2021-09-03] VITALS (11 sets, daily range): BP systolic 111–138; BP diastolic 65–78; PULSE 60–76; RESP 18–24; TEMP 36.1–37.1; O2SAT 82–97
[2021-09-03] MEDS: Levothyroxine Sodium 175 MCG TABLET PO (05:30)
[2021-09-03 06:50] LABS: INTERNATIONAL NORM RATIO 2.4 (0.9-1.1); Prothrombin Time 27.8 SEC (9.9-13.0)
[2021-09-03 06:50] LABS: Anion Gap 13 (12-20); Blood Urea Nitrogen 35 mg/dL (9-16); C Reactive Protein 11.81 mg/dL (< or = 0.50); Calcium 8.5 mg/dL (8.4-10.2); Carbon Dioxide 35 mmol/L (22-29); Chloride 97 mmol/L (96-108); Creatinine Clr Calc Pharmacy 93.6; Estimated Glomerular Filt Rate > 60; Glucose Random 105 mg/dL (60-115); Potassium 3.9 mmol/L (3.3-5.1); Sodium 141 mmol/L (135-145)
[2021-09-03 07:55] LABS: Ferritin 2875 ng/mL (10-250)
[2021-09-03] MEDS: Furosemide 20 MG/2 ML VIAL IVPUSH ×2 (08:07→17:15)
[2021-09-03] MEDS: 0.9 % Sodium Chloride Flush 3 ML SYRINGE IVFLUSH ×3 (08:07→22:04)
[2021-09-03] MEDS: dexAMETHasone sod phosphate 4 MG/ML VIAL 6 MG IVPUSH (08:07)
[2021-09-03] MEDS: Metoprolol Succinate ER 100 MG TAB.ER.24H 200 MG PO (08:08)
[2021-09-03] MEDS: Zinc Sulfate 220 MG CAPSULE PO (08:08)
[2021-09-03] MEDS: ALPRAZolam 0.5 MG TABLET PO (08:08)
[2021-09-03] MEDS: Escitalopram Oxalate 10 MG TABLET PO (08:08)
[2021-09-03] MEDS: Famotidine 20 MG TABLET PO ×2 (08:08→22:04)
[2021-09-03] MEDS: Nystatin Powder 15 GM BOTTLE 1 APPL TOPICAL ×2 (08:09→22:04)
--- NOTE | 2021-09-03 08:33 | MHC.CM.PN ---
at this time dc plan remains the same, for patient tor return home c vna. cm to cont . to follow.
[2021-09-03 08:51] LABS: Alanine Aminotransferase 196 U/L (0-31); Albumin Level 2.8 g/dL (3.5-5.0); Alkaline Phosphatase 78 U/L (39-117); Aspartate Amino Transferase 160 U/L (5-31); Bilirubin Direct 0.5 mg/dL (0.0-0.5); Bilirubin Total 0.8 mg/dL (0.0-1.0); Total Protein 6.1 g/dL (6.5-8.0)
[2021-09-03 09:14] LABS: VBG HCO3 39 mmol/L (22-26); VBG pCO2 47 mmHg; VBG pH 7.53 (7.32-7.43); VBG pO2 71 mmHg
[2021-09-03 09:17] LABS: Venous Blood Gas Refer to POC result
[2021-09-03 09:52] LABS: Procalcitonin 0.07 ng/mL
[2021-09-03] MEDS: Albuterol Sulfate 90 MCG 8 GM INHALER 2 PUFF INHALE (11:18)
[2021-09-03] MEDS: Morphine Sulfate 2 MG/ML CARTRIDGE IVPUSH ×3 (12:10→22:05)
--- NOTE | 2021-09-03 16:27 | HO.PM.IMPN ---
Subjective Subjective Date of Service: 09/03/21 Interval History: Acute hypoxemic respiratory failure secondary to COVID pneumonia. Review of Systems Patient still on and off the setting and placed on high-flow oxygen. sob slightly worsen than yesterday but still could able to answer questions noncomplaint with keeping high flow Denies any chest pain or abdominal pain or nausea or vomiting or fevers or chills Physical Exam Vital Signs: Vital Signs: Last Vital Signs Temp 98.7 F 09/03/21 16:00 Pulse 76 09/03/21 16:00 Resp 19 09/03/21 16:00 BP 111/66 09/03/21 16:00 Pulse Ox 97 09/03/21 16:00 Body Mass Index 48.4 ? Physical exam:? Less anxious, speaking in the full sentences Lungs: air entry seems similar to yesterday , slightly diminshed at bases. Heart: regular rate and rhythm, no murmurs Abd: soft, non-tender, non-distended, morbidly obese Ext: no edema, RUE in splint Skin: warm/well-perfused Neuro: alert and oriented x3, no focal findings Psych: appropriate affec Objective Data Active Medications Acetaminophen (Acetaminophen 325 Mg Tablet) 650 mg PO Q6H PRN PRN Reason: Fever Last Admin: 09/02/21 09:57 Dose: 650 mg Documented by: LOIS Albuterol Sulfate (Albuterol Sulfate 90 Mcg 8 Gm Inhaler) 2 puff INHALE RQ4H [facility] Last Admin: 09/03/21 15:35 Dose: Not Given Documented by: DARION Non-Admin Reason: Patient Refused Alprazolam (Alprazolam 0.5 Mg Tablet) 0.5 mg PO DAILY [facility] Last Admin: 09/03/21 08:08 Dose: 0.5 mg Documented by: WILY Atorvastatin Calcium (Atorvastatin Calcium 20 Mg Tablet) 20 mg PO BEDTIME [facility] Last Admin: 09/02/21 20:01 Dose: 20 mg Documented by: CONCHA Dexamethasone Sodium Phosphate (Dexamethasone Sod Phosphate 4 Mg/Ml Vial) 6 mg IVPUSH DAILY [facility] Stop: 09/04/21 09:01 Last Admin: 09/03/21 08:07 Dose: 6 mg Documented by: WILY Escitalopram Oxalate (Escitalopram Oxalate 10 Mg Tablet) 10 mg PO DAILY [facility] Last Admin: 09/03/21 08:08 Dose: 10 mg Documented by: WILY Famotidine (Famotidine 20 Mg Tablet) 20 mg PO BID [facility] Last Admin: 09/03/21 08:08 Dose: 20 mg Documented by: WILY Furosemide (Furosemide 20 Mg/2 Ml Vial) 20 mg IVPUSH BID@0900,1800 [facility]; Protocol Last Admin: 09/03/21 08:07 Dose: 20 mg Documented by: WILY Levothyroxine Sodium (Levothyroxine Sodium 175 Mcg Tablet) 175 mcg PO DAILY@0600 [facility] Last Admin: 09/03/21 05:30 Dose: 175 mcg Documented by: CONCHA Lisinopril (Lisinopril 20 Mg Tablet) 20 mg PO DAILY [facility]; Protocol Last Admin: 09/02/21 09:48 Dose: 20 mg Documented by: LOIS Metoprolol Succinate (Metoprolol Succinate Er 100 Mg Tab.Er.24h) 200 mg PO DAILY [facility]; Protocol Last Admin: 09/03/21 08:08 Dose: 200 mg Documented by: WILY Morphine Sulfate (Morphine Sulfate 2 Mg/Ml Cartridge) 2 mg IVPUSH Q4H PRN; Protocol PRN Reason: Shortness of Breath Last Admin: 09/03/21 12:10 Dose: 2 mg Documented by: WILY Nystatin (Nystatin Powder 15 Gm Bottle) 1 appl TOPICAL BID [facility]; Protocol Last Admin: 09/03/21 08:09 Dose: 1 appl Documented by: WILY Omeprazole (Omeprazole 20 Mg Cielo.) 20 mg PO DAILY@0630 [facility] Last Admin: 08/31/21 05:16 Dose: 20 mg Documented by: SADIA Ondansetron HCl (Ondansetron Hcl 4 Mg/2 Ml Vial) 4 mg IVPUSH Q8H PRN PRN Reason: Nausea and Vomiting Pharmacy Consult (Consult Rx Perform Med Rec) 1 each MISCELLANE ONCE PRN PRN Reason: Consult order Sodium Chloride (0.9 % Sodium Chloride Flush 3 Ml Syringe) 3 ml IVFLUSH QSHIFT [facility] Last Admin: 09/03/21 08:07 Dose: 3 ml Documented by: WILY Warfarin Sodium (Warfarin Sodium 1 Mg Tablet) 1 mg PO DAILY@1800 [facility] Last Admin: 09/02/21 18:06 Dose: 1 mg Documented by: JORY Zinc Sulfate (Zinc Sulfate 220 Mg Capsule) 220 mg PO DAILY [facility] Last Admin: 09/03/21 08:08 Dose: 220 mg Documented by: WILY Labs CBC & Chem 7: 08/31/21 05:55 09/03/21 06:29 Labs: Laboratory Results - last 24 hr 09/03/21 09/03/21 09/03/21 06:28 06:29 06:29 PT 27.8 H INR 2.4 H VBG pH VBG pCO2 VBG pO2 VBG HCO3 VBG O2 Saturation VBG Base Excess Anion Gap 13 Estim Creat Clear Calc 93.6 Estimated GFR > 60 Random Glucose 105 Calcium 8.5 Ferritin 2875 H Total Bilirubin 0.8 Direct Bilirubin 0.5 AST 160 H ALT 196 H Alkaline Phosphatase 78 C-Reactive Protein 11.81 H Total Protein 6.1 L Albumin 2.8 L Procalcitonin 0.07 09/03/21 09:08 PT INR VBG pH 7.53 H VBG pCO2 47 VBG pO2 71 VBG HCO3 39 H VBG O2 Saturation 91.0 VBG Base Excess 15.0 Anion Gap Estim Creat Clear Calc Estimated GFR Random Glucose Calcium Ferritin Total Bilirubin Direct Bilirubin AST ALT Alkaline Phosphatase C-Reactive Protein Total Protein Albumin Procalcitonin Assessment and Plan (1) Congestive heart failure: Status: Acute (2) COVID-19: Status: Acute (3) Hypoxemia: Status: Acute Assessment and Plan: 75yo unvaccinated F presenting with 4d of dyspnea/malaisea, [place] [facility] [place], admitted for hypoxia 1.acute hypoxic resp failure sec covid. wean as tolerated, encourage awake proning crp improving, ferritin going up yesterday , willrecheck in am. vbg noted-ph compensated echo done -official report pending ?albuterol,? steriods. 2.COVID-19 PNA- dexamethasone d#/, ID following 3. HF unknown EF, acute/chronic/HTN: - continue IV diuresis, trend BNP/I+O/weight, monitor BMP/Mg, TTE pending - continue metoprolol succinate + lisinopril, lasix iv. 4. AF on warfarin- monitor INR, holding warfarin for therapeutic INR, adjusted warfarin to 1 mg daily. 5. intra-articular R distal radius fx- outpt ORIF planned, continue splint 6. hypothyroidism- continue LT4 7.GERD- continue PPI 8. mood disorder- continue escitalopram, still anxious given p.r.n. Xanax, also will add care team evaluation ?VTE ppx back on warfarin. Quality Stroke Does the patient have a stroke diagnosis?: No VTE Prior VTE?: No VTE Risk Level:: Medical - moderate - high VTE Device Contraindication: Treatment Not Indicated VTE Drug Contraindication: N/A - Med Ordered
[2021-09-03] MEDS: Warfarin Sodium 1 MG TABLET PO (17:15)
--- NOTE | 2021-09-03 20:31 | MHC.CARE ---
CARE Team attempted to reach pt by phone several times with no success so pt's RN was contacted to find out if pt would be able to talk on the phone. RN indicated as pt is on high flow oxygen, it was unlikely she could speak over the phone. CARE Team met with pt bedside in full PPE to offer available resources. Pt declined outpatient psychiatric referrals and stated I'm alright, I'm alright. CARE Team asked if she wanted help with her anxiety and pt shook her head no. Consult CARE Team if pt changes her mind.
[2021-09-03] MEDS: Atorvastatin Calcium 20 MG TABLET PO (22:04)
[2021-09-04] VITALS (13 sets, daily range): BP systolic 107–136; BP diastolic 58–78; PULSE 58–139; RESP 12–22; TEMP 36.6–37.3; O2SAT 88–95
[2021-09-04] MEDS: Morphine Sulfate 2 MG/ML CARTRIDGE IVPUSH (03:19)
[2021-09-04] MEDS: Levothyroxine Sodium 175 MCG TABLET PO (05:58)
[2021-09-04 06:18] LABS: INTERNATIONAL NORM RATIO 2.5 (0.9-1.1); Prothrombin Time 29.4 SEC (9.9-13.0)
[2021-09-04 06:37] LABS: Anion Gap 14 (12-20); Blood Urea Nitrogen 37 mg/dL (9-16); Calcium 8.6 mg/dL (8.4-10.2); Carbon Dioxide 36 mmol/L (22-29); Chloride 95 mmol/L (96-108); Creatinine Clr Calc Pharmacy 92.4; Estimated Glomerular Filt Rate > 60; Glucose Random 104 mg/dL (60-115); Potassium 3.9 mmol/L (3.3-5.1); Sodium 141 mmol/L (135-145)
[2021-09-04] MEDS: Escitalopram Oxalate 10 MG TABLET PO (08:32)
[2021-09-04] MEDS: ALPRAZolam 0.5 MG TABLET PO (08:32)
[2021-09-04] MEDS: dexAMETHasone sod phosphate 4 MG/ML VIAL 6 MG IVPUSH (08:32)
[2021-09-04] MEDS: Furosemide 20 MG/2 ML VIAL IVPUSH ×2 (08:32→17:17)
[2021-09-04] MEDS: 0.9 % Sodium Chloride Flush 3 ML SYRINGE IVFLUSH ×3 (08:32→21:09)
[2021-09-04] MEDS: Metoprolol Succinate ER 100 MG TAB.ER.24H 200 MG PO (08:32)
[2021-09-04] MEDS: Zinc Sulfate 220 MG CAPSULE PO (08:32)
[2021-09-04] MEDS: Famotidine 20 MG TABLET PO ×2 (08:32→21:08)
[2021-09-04 09:29] LABS: Venous Blood Gas Refer to POC result
[2021-09-04 09:30] LABS: VBG Base Excess 13.9 mmol/L; VBG HCO3 38 mmol/L (22-26); VBG pCO2 46 mmHg; VBG pH 7.53 (7.32-7.43); VBG pO2 75 mmHg
--- NOTE | 2021-09-04 12:04 | P.PNIM_ITS ---
Subjective Subjective Date of Service: 09/04/21 Interval History: Acute hypoxemic respiratory failure secondary to COVID, slowly worsening shortness of breath Now on nasal maximum high-flow/nbrm Review of Systems Physician still is seems short of breath, her non-rebreather adjusted again. Sats are fluctuating 88-90 % range currently Denies any chest pain or abdominal pain or fever or chills or cough or phlegm. Physical Exam Vital Signs: Vital Signs: Last Vital Signs Temp 98.9 F 09/04/21 11:54 Pulse 60 09/04/21 11:54 Resp 20 09/04/21 11:54 BP 111/65 09/04/21 11:54 Pulse Ox 92 09/04/21 11:54 Body Mass Index 48.4 Physical exam:?generally weak, still able to answer few questions but sob Lungs: air entry diminshed at bases, few rhonchii. Heart: regular rate and rhythm, no murmurs Abd: soft, non-tender, non-distended, morbidly obese Ext: no edema, RUE in splint Skin: warm/well-perfused Neuro: alert and oriented x3, no focal findings Psych: appropriate affect Objective Data Active Medications Acetaminophen (Acetaminophen 325 Mg Tablet) 650 mg PO Q6H PRN PRN Reason: Fever Last Admin: 09/02/21 09:57 Dose: 650 mg Documented by: LOIS Albuterol Sulfate (Albuterol Sulfate 90 Mcg 8 Gm Inhaler) 2 puff INHALE RQ4H [facility] Last Admin: 09/04/21 11:34 Dose: Not Given Documented by: DARION Non-Admin Reason: Patient Asleep Alprazolam (Alprazolam 0.5 Mg Tablet) 0.5 mg PO DAILY [facility] Last Admin: 09/04/21 08:32 Dose: 0.5 mg Documented by: ELIZABETH Atorvastatin Calcium (Atorvastatin Calcium 20 Mg Tablet) 20 mg PO BEDTIME [facility] Last Admin: 09/03/21 22:04 Dose: 20 mg Documented by: SADIA Escitalopram Oxalate (Escitalopram Oxalate 10 Mg Tablet) 10 mg PO DAILY [facility] Last Admin: 09/04/21 08:32 Dose: 10 mg Documented by: ELIZABETH Famotidine (Famotidine 20 Mg Tablet) 20 mg PO BID [facility] Last Admin: 09/04/21 08:32 Dose: 20 mg Documented by: ELIZABETH Furosemide (Furosemide 20 Mg/2 Ml Vial) 20 mg IVPUSH BID@0900,1800 [facility]; Protocol Last Admin: 09/04/21 08:32 Dose: 20 mg Documented by: ELIZABETH Levothyroxine Sodium (Levothyroxine Sodium 175 Mcg Tablet) 175 mcg PO DAILY@ 0600 [facility] Last Admin: 09/04/21 05:58 Dose: 175 mcg Documented by: SADIA Lisinopril (Lisinopril 20 Mg Tablet) 20 mg PO DAILY [facility]; Protocol Last Admin: 09/02/21 09:48 Dose: 20 mg Documented by: LOIS Metoprolol Succinate (Metoprolol Succinate Er 100 Mg Tab.Er.24h) 200 mg PO DAILY [facility]; Protocol Last Admin: 09/04/21 08:32 Dose: 200 mg Documented by: ELIZABETH Morphine Sulfate (Morphine Sulfate 2 Mg/Ml Cartridge) 2 mg IVPUSH Q4H PRN; Protocol PRN Reason: Shortness of Breath Last Admin: 09/04/21 03:19 Dose: 2 mg Documented by: SADIA Nystatin (Nystatin Powder 15 Gm Bottle) 1 appl TOPICAL BID [facility]; Protocol Last Admin: 09/04/21 08:33 Dose: Not Given Documented by: ELIZABETH Non-Admin Reason: Med Not Available Omeprazole (Omeprazole 20 Mg Capsule.) 20 mg PO DAILY@0630 [facility] Last Admin: 08/31/21 05:16 Dose: 20 mg Documented by: SADIA Ondansetron HCl (Ondansetron Hcl 4 Mg/2 Ml Vial) 4 mg IVPUSH Q8H PRN PRN Reason: Nausea and Vomiting Pharmacy Consult (Consult Rx Perform Med Rec) 1 each MISCELLANE ONCE PRN PRN Reason: Consult order Sodium Chloride (0.9 % Sodium Chloride Flush 3 Ml Syringe) 3 ml IVFLUSH QSHIFT [facility] Last Admin: 09/04/21 08:32 Dose: 3 ml Documented by: ELIZABETH Warfarin Sodium (Warfarin Sodium 1 Mg Tablet) 1 mg PO DAILY@1800 [facility] Last Admin: 09/03/21 17:15 Dose: 1 mg Documented by: ANUSHA Zinc Sulfate (Zinc Sulfate 220 Mg Capsule) 220 mg PO DAILY [facility] Last Admin: 09/04/21 08:32 Dose: 220 mg Documented by: ELIZABETH Labs CBC & Chem 7: 08/31/21 05:55 09/04/21 05:51 Labs: Laboratory Results - last 24 hr 09/04/21 09/04/21 09/04/21 05:51 05:51 09:24 PT 29.4 H INR 2.5 H VBG pH 7.53 H VBG pCO2 46 VBG pO2 75 VBG HCO3 38 H VBG O2 Saturation 92.0 VBG Base Excess 13.9 Anion Gap 14 Estim Creat Clear Calc 92.4 Estimated GFR > 60 Random Glucose 104 Calcium 8.6 Assessment and Plan (1) Congestive heart failure: Status: Acute (2) COVID-19: Status: Acute (3) Hypoxemia: Status: Acute Assessment and Plan: 75yo unvaccinated F presenting with 4d of dyspnea/malaisea, [place] [facility] [place] admitted for hypoxia. And 1.acute hypoxic resp failure sec covid. Shortness of breath and respiratory failure slowly worsening-on high-flow max/n brm Still maintaining saturation around 89-90% ?wean as tolerated, encourage awake proning crp improving, ferritin going up vbg repeated noted-ph compensated similar to yesterday echo done -official report pending ?albuterol,? steriods. Discussed with ICU if patient condition worsen, does not maintain alevism with the above, may need ICU management. 2.COVID-19 PNA- dexamethasone d#07/25, ID following 3. HF unknown EF, acute/chronic/HTN: - continue IV diuresis, trend BNP/I+O/weight, monitor BMP/Mg, TTE pending - continue metoprolol succinate lasix iv, hold lisnipril today feels generalised weak , dec oral intake. 4. AF on warfarin- monitor INR, holding warfarin for therapeutic INR, adjusted warfarin to 1 mg daily. 5. intra-articular R distal radius fx- outpt ORIF planned, continue splint 6. hypothyroidism- continue LT4 7.GERD- continue PPI 8. mood disorder- continue escitalopram, still anxious given p.r.n. Xanax, also will add care team evaluation ?VTE ppx back on warfarin. Quality Stroke Does the patient have a stroke diagnosis?: No VTE Prior VTE?: No VTE Risk Level:: Medical - moderate - high VTE Device Contraindication: Treatment Not Indicated VTE Drug Contraindication: N/A - Med Ordered
[2021-09-04 13:51] LABS: Alanine Aminotransferase 183 U/L (0-31); Albumin Level 2.9 g/dL (3.5-5.0); Alkaline Phosphatase 90 U/L (39-117); Aspartate Amino Transferase 128 U/L (5-31); Bilirubin Direct 0.6 mg/dL (0.0-0.5); Bilirubin Total 1.2 mg/dL (0.0-1.0); C Reactive Protein 8.37 mg/dL (< or = 0.50); Total Protein 6.3 g/dL (6.5-8.0)
[2021-09-04 14:44] LABS: Ferritin 2074 ng/mL (10-250)
[2021-09-04] MEDS: Warfarin Sodium 1 MG TABLET PO (17:16)
[2021-09-04] MEDS: Albuterol Sulfate 90 MCG 8 GM INHALER 2 PUFF INHALE (20:16)
[2021-09-04] MEDS: Atorvastatin Calcium 20 MG TABLET PO (21:08)
[2021-09-04] MEDS: hydrOXYzine HCL 25 MG TABLET PO (21:09)
[2021-09-04] MEDS: Nystatin Powder 15 GM BOTTLE 1 APPL TOPICAL (21:12)
--- NOTE | 2021-09-04 23:25 | PC.RT ---
RN took patient off HFNC and kept the nrb on pt as pt was c/o her nose irritating her. Her sats on nrb were high 80' s. I tplaced her back on the hfnc and the pt did not go back on the nrb at this time as her george were low 90's.
[2021-09-05] VITALS (12 sets, daily range): BP systolic 102–125; BP diastolic 52–79; PULSE 59–73; RESP 18–20; TEMP 36.6–37.1; O2SAT 90–96
[2021-09-05] MEDS: hydrOXYzine HCL 25 MG TABLET PO ×2 (02:03→17:55)
[2021-09-05] MEDS: Levothyroxine Sodium 175 MCG TABLET PO (05:13)
--- NOTE | 2021-09-05 07:23 | PC.NURSE ---
7p-7a shift note: pt continues to yell out I need help despite education to ring call ralph & availability of call ralph in reach, crying without tears. very tender with turning & repositioning. educated re: importance of turn & repos for skin protection. morphine d/c'd. at 0150 pt again crying out with call ralph in reach & states she has to go to bathroom. asked pt if she thought she could stand, yes she answered. 2 max assist oob to bsc & pt continent of urine 200ml dark yellow urine. 2 assist back to bed after michelle care given & barrier cream applied. pt in a panic attack re: getting back to bed. given emotional support and encouraged pt she was doing well. sats 87-88% on hi flow 50L 100% & 15L NrB. back to bed pt, with noted orthopnea & I can't breath sats mid 70's with prolonged recovery of 15 TO 87-89%. R.T. paged in interim & over to assess pt. sat probe with good waveform. medicated pt early with atarax 25mg po -ok per Dr. Rosenberg ( & informed md of episode of panic attack and prolonged recovery as noted).
[2021-09-05 07:30] LABS: Prothrombin Time 34.7 SEC (9.9-13.0)
[2021-09-05] MEDS: dexAMETHasone sod phosphate 4 MG/ML VIAL 6 MG IVPUSH (07:59)
[2021-09-05] MEDS: 0.9 % Sodium Chloride Flush 3 ML SYRINGE IVFLUSH ×2 (07:59→20:02)
[2021-09-05] MEDS: Famotidine 20 MG TABLET PO ×2 (08:00→20:01)
[2021-09-05] MEDS: Escitalopram Oxalate 10 MG TABLET PO (08:00)
[2021-09-05] MEDS: Metoprolol Succinate ER 100 MG TAB.ER.24H 200 MG PO (08:00)
[2021-09-05] MEDS: Nystatin Powder 15 GM BOTTLE 1 APPL TOPICAL ×2 (08:00→20:02)
[2021-09-05] MEDS: Zinc Sulfate 220 MG CAPSULE PO (08:00)
[2021-09-05] MEDS: ALPRAZolam 0.5 MG TABLET PO (08:00)
[2021-09-05 08:01] LABS: Anion Gap 15 (12-20); Blood Urea Nitrogen 38 mg/dL (9-16); Calcium 8.6 mg/dL (8.4-10.2); Carbon Dioxide 35 mmol/L (22-29); Chloride 94 mmol/L (96-108); Creatinine Clr Calc Pharmacy 86.8; Estimated Glomerular Filt Rate > 60; Glucose Random 110 mg/dL (60-115); Sodium 140 mmol/L (135-145)
[2021-09-05] MEDS: Morphine Sulfate 2 MG/ML CARTRIDGE 1 MG IVPUSH ×4 (09:12→22:27)
--- NOTE | 2021-09-05 13:07 | P.PNIM_ITS ---
Subjective Subjective Date of Service: 09/05/21 Interval History: Acute hypoxemic respiratory failure secondary to COVID, slowly worsening shortness of breath still on high-flow/nbrm Review of Systems Seems is sob , has some dry cough Denies any nausea vomiting or fever or chills or abdominal pain. Physical Exam Vital Signs: Vital Signs: Last Vital Signs Temp 98.1 F 09/05/21 11:44 Pulse 60 09/05/21 11:44 Resp 18 09/05/21 11:51 BP 109/64 09/05/21 11:44 Pulse Ox 94 09/05/21 11:44 Body Mass Index 48.4 Physical exam:?awake , some pain in right arm Lungs: air entry? diminshed at bases, few rhonchii. Heart: regular rate and rhythm, no murmurs Abd: soft, non-tender, non-distended, morbidly obese Ext: no edema, RUE in splint Skin: warm/well-perfused Neuro: alert and oriented x3, no focal findings Psych: appropriate affect Objective Data Active Medications Acetaminophen (Acetaminophen 325 Mg Tablet) 650 mg PO Q6H PRN PRN Reason: Fever Last Admin: 09/02/21 09:57 Dose: 650 mg Documented by: LOIS Albuterol Sulfate (Albuterol Sulfate 90 Mcg 8 Gm Inhaler) 2 puff INHALE RQ4H [facility] Last Admin: 09/05/21 11:51 Dose: Not Given Documented by: LUIS Non-Admin Reason: pt unable Alprazolam (Alprazolam 0.5 Mg Tablet) 0.5 mg PO DAILY [facility] Last Admin: 09/05/21 08:00 Dose: 0.5 mg Documented by: ELIZABETH Atorvastatin Calcium (Atorvastatin Calcium 20 Mg Tablet) 20 mg PO BEDTIME [facility] Last Admin: 09/04/21 21:08 Dose: 20 mg Documented by: SADIA Dexamethasone Sodium Phosphate (Dexamethasone Sod Phosphate 4 Mg/Ml Vial) 6 mg IVPUSH DAILY [facility] Last Admin: 09/05/21 07:59 Dose: 6 mg Documented by: ELIZABETH Escitalopram Oxalate (Escitalopram Oxalate 10 Mg Tablet) 10 mg PO DAILY [facility] Last Admin: 09/05/21 08:00 Dose: 10 mg Documented by: ELIZABETH Famotidine (Famotidine 20 Mg Tablet) 20 mg PO BID [facility] Last Admin: 09/05/21 08:00 Dose: 20 mg Documented by: ELIZABETH Hydroxyzine HCl (Hydroxyzine Hcl 25 Mg Tablet) 25 mg PO Q6H PRN PRN Reason: anxiety/restlessness Last Admin: 09/05/21 02:03 Dose: 25 mg Documented by: SADIA Levothyroxine Sodium (Levothyroxine Sodium 175 Mcg Tablet) 175 mcg PO DAILY@0600 [facility] Last Admin: 09/05/21 05:13 Dose: 175 mcg Documented by: SADIA Lisinopril (Lisinopril 20 Mg Tablet) 20 mg PO DAILY [facility]; Protocol Last Admin: 09/02/21 09:48 Dose: 20 mg Documented by: LOIS Metoprolol Succinate (Metoprolol Succinate Er 100 Mg Tab.Er.24h) 200 mg PO DAILY [facility]; Protocol Last Admin: 09/05/21 08:00 Dose: 200 mg Documented by: ELIZABETH Morphine Sulfate (Morphine Sulfate 2 Mg/Ml Cartridge) 1 mg IVPUSH Q6H PRN; Protocol PRN Reason: Pain, Mild (Pain Scale 1-3) Last Admin: 09/05/21 13:00 Dose: 1 mg Documented by: ELIZABETH Nystatin (Nystatin Powder 15 Gm Bottle) 1 appl TOPICAL BID [facility]; Protocol Last Admin: 09/05/21 08:00 Dose: 1 appl Documented by: ELIZABETH Omeprazole (Omeprazole 20 Mg Capsule.Dr) 20 mg PO DAILY@0630 [facility] Last Admin: 08/31/21 05:16 Dose: 20 mg Documented by: SADIA Ondansetron HCl (Ondansetron Hcl 4 Mg/2 Ml Vial) 4 mg IVPUSH Q8H PRN PRN Reason: Nausea and Vomiting Pharmacy Consult (Consult Rx Perform Med Rec) 1 each MISCELLANE ONCE PRN PRN Reason: Consult order Sodium Chloride (0.9 % Sodium Chloride Flush 3 Ml Syringe) 3 ml IVFLUSH QSHIFT [facility] Last Admin: 09/05/21 07:59 Dose: 3 ml Documented by: ELIZABETH Warfarin Sodium (Warfarin Sodium 1 Mg Tablet) 1 mg PO DAILY@1800 [facility] Last Admin: 09/04/21 17:16 Dose: 1 mg Documented by: ELIZABETH Zinc Sulfate (Zinc Sulfate 220 Mg Capsule) 220 mg PO DAILY [facility] Last Admin: 09/05/21 08:00 Dose: 220 mg Documented by: ELIZABETH Labs CBC & Chem 7: 08/31/21 05:55 09/05/21 05:22 Labs: Laboratory Results - last 24 hr 09/04/21 09/05/21 09/05/21 05:51 05:22 05:22 PT 34.7 H INR 3.0 H Anion Gap 15 Estim Creat Clear Calc 86.8 Estimated GFR > 60 Random Glucose 110 Calcium 8.6 Ferritin 2074 H Total Bilirubin 1.2 H Direct Bilirubin 0.6 H AST 128 H ALT 183 H Alkaline Phosphatase 90 C-Reactive Protein 8.37 H Total Protein 6.3 L Albumin 2.9 L Assessment and Plan (1) Congestive heart failure: Status: Acute (2) Hypoxemia: Status: Acute (3) COVID-19: Status: Acute Assessment and Plan: 75yo unvaccinated F presenting with 4d of dyspnea/malaisea, tested positive for COVID at [facility] [place]24/21, admitted for hypoxia. 1.acute hypoxic resp failure sec covid. Shortness of breath and respiratory failure slowly worsening-on high-flow max/nbrm Still maintaining saturation around 89-90% ?wean as tolerated, encourage awake proning crp improving, ferritin going up vbg repeated noted-ph compensated similar to yesterday echo done -official report pending ?albuterol,? steriods. Discussed with ICU if patient condition worsen, does not maintain alevism with the above, may need ICU management. 2.COVID-19 PNA- dexamethasone d#07/25, ID following 3. HF unknown EF, acute/chronic/HTN: - continue IV diuresis, trend BNP/I+O/weight, monitor BMP/Mg, TTE pending - continue metoprolol succinate lasix iv, hold lisnipril today feels generalised weak , dec oral intake. 4. AF on warfarin- inr is 3,adjusted warfarin to 1 mg daily. 5. intra-articular R distal radius fx- outpt ORIF planned, continue splint 6. hypothyroidism- continue LT4 7.GERD- continue PPI 8. mood disorder- continue escitalopram, still anxious given p.r.n. Xanax, also will add care team evaluation ?VTE ppx back on warfarin. Quality Stroke Does the patient have a stroke diagnosis?: No VTE Prior VTE?: No VTE Risk Level:: Medical - moderate - high VTE Device Contraindication: Treatment Not Indicated VTE Drug Contraindication: N/A - Med Ordered
[2021-09-05] MEDS: Warfarin Sodium 1 MG TABLET PO (17:55)
[2021-09-05] MEDS: Atorvastatin Calcium 20 MG TABLET PO (20:01)
[2021-09-06] VITALS (17 sets, daily range): BP systolic 103–146; BP diastolic 61–83; PULSE 56–62; RESP 18–24; TEMP 36.1–37; O2SAT 84–95
[2021-09-06] MEDS: Albuterol Sulfate 90 MCG 8 GM INHALER 2 PUFF INHALE ×2 (04:10→08:23)
[2021-09-06] MEDS: Morphine Sulfate 2 MG/ML CARTRIDGE 1 MG IVPUSH ×2 (04:19→09:03)
[2021-09-06] MEDS: Levothyroxine Sodium 175 MCG TABLET PO (04:20)
[2021-09-06 06:44] LABS: Anion Gap 20 (12-20); Blood Urea Nitrogen 36 mg/dL (9-16); Calcium 8.7 mg/dL (8.4-10.2); Carbon Dioxide 29 mmol/L (22-29); Chloride 96 mmol/L (96-108); Creatinine Clr Calc Pharmacy 81.8; Estimated Glomerular Filt Rate > 60; Glucose Random 103 mg/dL (60-115); Potassium 5.8 mmol/L (3.3-5.1); Sodium 139 mmol/L (135-145)
[2021-09-06 06:55] LABS: INTERNATIONAL NORM RATIO 3.1 (0.9-1.1); Prothrombin Time 36.7 SEC (9.9-13.0)
[2021-09-06] MEDS: dexAMETHasone sod phosphate 4 MG/ML VIAL 6 MG IVPUSH (08:25)
[2021-09-06] MEDS: Sodium Zirconium Cyclosilicate 10 GM POWD.PACK PO ×2 (08:25→18:22)
[2021-09-06] MEDS: Metoprolol Succinate ER 100 MG TAB.ER.24H 200 MG PO (08:25)
[2021-09-06] MEDS: Escitalopram Oxalate 10 MG TABLET PO (08:26)
[2021-09-06] MEDS: 0.9 % Sodium Chloride Flush 3 ML SYRINGE IVFLUSH ×3 (08:26→21:22)
[2021-09-06] MEDS: ALPRAZolam 0.5 MG TABLET PO (08:26)
[2021-09-06] MEDS: Zinc Sulfate 220 MG CAPSULE PO (08:26)
[2021-09-06] MEDS: Famotidine 20 MG TABLET PO ×2 (08:26→21:22)
--- NOTE | 2021-09-06 09:18 | MHC.CM.PN ---
EMR REVIEWED, PT REMAINS ON HF O2 VIA NONREBREATHER, PT CONT'S TO RECIEVE IV DECADRON AND WILL START ON NEBULIZER TX'S TODAY, NO PLAN FOR D/C, CM WILL CONT TO FOLLOW D/C NEEDS. D/C PLAN: HOME W/NEW [facility] W/FAMILY FOR TRANSPORT ONCE MEDICALLY CLEARED.
[2021-09-06] MEDS: Albuterol/Iprat 2.5/0.5MG 3 ML AMPUL.NEB INHALE ×3 (11:06→19:16)
--- NOTE | 2021-09-06 12:35 | P.PNIM_ITS ---
Subjective Subjective Date of Service: 09/06/21 Interval History: Acute hypoxemic respiratory failure secondary to COVID, slowly worsening shortness of breath still on high-flow/nbrm Review of Systems Is still short of breath Could able to answer more questions. Denies any chest pain or abdominal pain or nausea or vomiting or any weakness numbness Still has right arm pain. Physical Exam 2 Vital Signs: Vital Signs: Last Vital Signs Temp 98.6 F 09/06/21 03:45 Pulse 62 09/06/21 08:25 Resp 22 H 09/06/21 11:06 BP 146/61 H 09/06/21 08:25 Pulse Ox 89 L 09/06/21 08:00 Body Mass Index 48.4 Physical exam:?awake , some pain in right arm Lungs: air entry? diminshed at bases, few rhonchii. Heart: regular rate and rhythm, no murmurs Abd: soft, non-tender, non-distended, morbidly obese Ext: no edema, RUE in splint Skin: warm/well-perfused right arm pain still present Neuro: alert and oriented x3, no focal findings Psych: appropriate affect Objective Data Active Medications Acetaminophen (Acetaminophen 325 Mg Tablet) 650 mg PO Q6H PRN PRN Reason: Fever Last Admin: 09/02/21 09:57 Dose: 650 mg Documented by: LOIS Albuterol/Ipratropium (Albuterol/Iprat 2.5/0.5mg 3 Ml Ampul.Neb) 3 ml INHALE RQ4H WHILE AWAKE [facility] Last Admin: 09/06/21 11:06 Dose: 3 ml Documented by: DARION Atorvastatin Calcium (Atorvastatin Calcium 20 Mg Tablet) 20 mg PO BEDTIME [facility] Last Admin: 09/05/21 20:01 Dose: 20 mg Documented by: ELOISA Dexamethasone Sodium Phosphate (Dexamethasone Sod Phosphate 4 Mg/Ml Vial) 6 mg IVPUSH DAILY [facility] Last Admin: 09/06/21 08:25 Dose: 6 mg Documented by: JERRY Comments: Escitalopram Oxalate (Escitalopram Oxalate 10 Mg Tablet) 10 mg PO DAILY [facility] Last Admin: 09/06/21 08:26 Dose: 10 mg Documented by: JERRY Famotidine (Famotidine 20 Mg Tablet) 20 mg PO BID [facility] Last Admin: 09/06/21 08:26 Dose: 20 mg Documented by: JERRY Furosemide (Furosemide 40 Mg Tablet) 40 mg PO DAILY [facility]; Protocol Hydroxyzine HCl (Hydroxyzine Hcl 25 Mg Tablet) 25 mg PO Q6H PRN PRN Reason: anxiety/restlessness Last Admin: 09/05/21 17:55 Dose: 25 mg Documented by: ELIZABETH Levothyroxine Sodium (Levothyroxine Sodium 175 Mcg Tablet) 175 mcg PO DAILY@0600 [facility] Last Admin: 09/06/21 04:20 Dose: 175 mcg Documented by: ELOISA Lisinopril (Lisinopril 20 Mg Tablet) 20 mg PO DAILY [facility]; Protocol Last Admin: 09/02/21 09:48 Dose: 20 mg Documented by: LOIS Metoprolol Succinate (Metoprolol Succinate Er 100 Mg Tab.Er.24h) 200 mg PO DAILY [facility]; Protocol Last Admin: 09/06/21 08:25 Dose: 200 mg Documented by: JERRY Morphine Sulfate (Morphine Sulfate 2 Mg/Ml Cartridge) 1 mg IVPUSH Q6H PRN; Protocol PRN Reason: Pain, Mild (Pain Scale 1-3) Last Admin: 09/06/21 09:03 Dose: 1 mg Documented by: JERRY Comments: per Dr. Oliveros orders - med given ahead of schedule Nystatin (Nystatin Powder 15 Gm Bottle) 1 appl TOPICAL BID [facility]; Protocol Last Admin: 09/06/21 08:26 Dose: Not Given Documented by: JERRY Non-Admin Reason: Patient Refused Omeprazole (Omeprazole 20 Mg Cielo.) 20 mg PO DAILY@0630 [facility] Last Admin: 08/31/21 05:16 Dose: 20 mg Documented by: SADIA Ondansetron HCl (Ondansetron Hcl 4 Mg/2 Ml Vial) 4 mg IVPUSH Q8H PRN PRN Reason: Nausea and Vomiting Pharmacy Consult (Consult Rx Perform Med Rec) 1 each MISCELLANE ONCE PRN PRN Reason: Consult order Sodium Chloride (0.9 % Sodium Chloride Flush 3 Ml Syringe) 3 ml IVFLUSH QSHIFT [facility] Last Admin: 09/06/21 08:26 Dose: 3 ml Documented by: JERRY Warfarin Sodium (Warfarin Sodium 1 Mg Tablet) 1 mg PO DAILY@1800 [facility] Last Admin: 09/05/21 17:55 Dose: 1 mg Documented by: ELIZABETH Zinc Sulfate (Zinc Sulfate 220 Mg Capsule) 220 mg PO DAILY [facility] Last Admin: 09/06/21 08:26 Dose: 220 mg Documented by: JERRY Labs CBC & Chem 7: 08/31/21 05:55 09/06/21 06:04 Labs: Laboratory Results - last 24 hr 09/06/21 09/06/21 06:04 06:04 PT 36.7 H INR 3.1 H Anion Gap 20 Estim Creat Clear Calc 81.8 Estimated GFR > 60 Random Glucose 103 Calcium 8.7 Assessment and Plan (1) Congestive heart failure: Status: Acute (2) COVID-19: Status: Acute (3) Hypoxemia: Status: Acute Assessment and Plan: 75yo unvaccinated F presenting with 4d of dyspnea/malaisea, [place] [facility] [place], admitted for hypoxia. 1.acute hypoxic resp failure sec covid. Shortness of breath and respiratory failure slowly worsening-on high-flow max/nbrm Still maintaining saturation around 89-90% ?wean as tolerated, encourage awake proning crp improving, ferritin improving, will recheck in am. vbg repeated noted-ph compensated similar to yesterday echo done -official report pending ?albuterol,? steriods. Discussed with ICU if patient condition worsen, does not maintain quaker with the above, may need ICU management. 2.COVID-19 PNA- dexamethasone d#07/25, ID following 3. HF unknown EF, acute/chronic/HTN: - continue IV diuresis, trend BNP/I+O/weight, monitor BMP/Mg, TTE pending - continue metoprolol, po lasix, hold OMAR. 4. AF on warfarin- inr is 3.1,will continue warfarin to 1 mg daily. 5. intra-articular R distal radius fx- outpt ORIF planned, continue splint 6. hypothyroidism- continue LT4 7.GERD- continue PPI 8. mood disorder- continue escitalopram, still anxious given p.r.n. Xanax, also will add care team evaluation ?VTE ppx back on warfarin. Quality Stroke Does the patient have a stroke diagnosis?: No VTE Prior VTE?: No VTE Risk Level:: Medical - moderate - high VTE Device Contraindication: Treatment Not Indicated VTE Drug Contraindication: N/A - Med Ordered
--- NOTE | 2021-09-06 13:48 | MHC.CLN ---
RE: CONSULT PT WITH POOR PO INTAKE DIET RX: 2GM NA LOW K+-APPROPRIATE RECOMMEND ADDING ENSURE CLEAR TID TO INCREASE KCALS SUPPLEMENT ALSO LOW K+ AND APPROPRIATE WITH DIET RX MONITOR PO INTAKE CLOSELY
[2021-09-06] MEDS: Warfarin Sodium 1 MG TABLET PO (18:21)
[2021-09-06 19:14] LABS: Potassium 4.2 mmol/L (3.3-5.1)
[2021-09-06] MEDS: Nystatin Powder 15 GM BOTTLE 1 APPL TOPICAL (21:22)
[2021-09-06] MEDS: Atorvastatin Calcium 20 MG TABLET PO (21:22)
[2021-09-07] VITALS (18 sets, daily range): BP systolic 94–135; BP diastolic 52–79; PULSE 60–82; RESP 17–20; TEMP 36–36.7; O2SAT 88–93; BMI 48.4
[2021-09-07] MEDS: Levothyroxine Sodium 175 MCG TABLET PO (06:15)
[2021-09-07 06:55] LABS: Hematocrit 42.5 % (37.0-47.0); Hemoglobin 14.2 g/dl (12.0-16.0); Mean Corpuscular HGB Conc 33.4 g/dl (31.0-35.0); Mean Corpuscular Hemoglobin 32.4 pg (27.0-33.0); Mean Platelet Volume 11.9 fL (9.4-12.3); Platelet Count 159 X10*3/uL (160-400); Red Blood Count 4.38 X10*6/uL (4.20-5.50); Red Cell Distribution Width 14.4 % (11.0-16.0); White Blood Count 13.3 X10*3/uL (4.8-10.8)
[2021-09-07 07:05] LABS: Anion Gap 15 (12-20); Blood Urea Nitrogen 34 mg/dL (9-16); C Reactive Protein 17.21 mg/dL (< or = 0.50); Calcium 8.7 mg/dL (8.4-10.2); Carbon Dioxide 31 mmol/L (22-29); Chloride 98 mmol/L (96-108); Creatinine Clr Calc Pharmacy 100.2; Estimated Glomerular Filt Rate > 60; Glucose Random 95 mg/dL (60-115); Potassium 4.1 mmol/L (3.3-5.1); Sodium 140 mmol/L (135-145)
[2021-09-07 07:57] LABS: Ferritin 2614 ng/mL (10-250)
[2021-09-07] MEDS: Albuterol/Iprat 2.5/0.5MG 3 ML AMPUL.NEB INHALE ×4 (08:03→19:50)
[2021-09-07 09:14] LABS: INTERNATIONAL NORM RATIO 2.8 (0.9-1.1); Prothrombin Time 32.9 SEC (9.9-13.0)
[2021-09-07] MEDS: Nystatin Powder 15 GM BOTTLE 1 APPL TOPICAL ×2 (09:29→20:51)
[2021-09-07] MEDS: Zinc Sulfate 220 MG CAPSULE PO (09:30)
[2021-09-07] MEDS: Escitalopram Oxalate 10 MG TABLET PO (09:30)
[2021-09-07] MEDS: dexAMETHasone sod phosphate 4 MG/ML VIAL 6 MG IVPUSH (09:30)
[2021-09-07] MEDS: Famotidine 20 MG TABLET PO ×2 (09:30→20:51)
[2021-09-07] MEDS: 0.9 % Sodium Chloride Flush 3 ML SYRINGE IVFLUSH ×3 (09:30→20:51)
[2021-09-07] MEDS: Furosemide 40 MG TABLET PO (09:31)
[2021-09-07] MEDS: Metoprolol Succinate ER 100 MG TAB.ER.24H 200 MG PO (09:31)
[2021-09-07] MEDS: Morphine Sulfate 2 MG/ML CARTRIDGE 1 MG IVPUSH (11:18)
--- NOTE | 2021-09-07 13:31 | PM.EVENT ---
Event Note Date of Service: 09/07/21 Event Note: Patient seen at bedside for right wrist fracture. The patient is unable to recall the events leading up to her injury. She reports that perhaps about 6 weeks ago she sustained this wrist fracture. She has no recollection of what caused the injury. It is reported that she had a wrist splint on that she removed. She is unable to recall who is treating her for the right wrist fracture. Orthopedics would recommend a Velcro wrist splint for stabilization and comfort. No additional orthopedic intervention warranted at this time. Formal consult note to follow.
--- NOTE | 2021-09-07 13:33 | P.CONOP_ITS ---
History of Present Illness HPI Consult date: 09/07/21 Chief complaint: Shortness of breath Narrative: Patient is a 75-year-old trgqo-rvzy-[id number] female who presented to the emergency department on 08/26/2021 for worsening shortness of breath status post COVID diagnosis 3 days prior. Patient also had sustained a mechanical fall some weeks prior resulting in a right wrist fracture. However, the patient is unable to recollect the events causing her right wrist fracture her who she is being treated by. The patient had a right wrist splint on prior to admission but at some point the patient had removed. X-rays were obtained and she was found to have a right distal radius fracture with widening of the scapholunate joint. Orthopedics was then consulted for further evaluation and treatment. Review of Systems Review of Systems: Yes all other systems are reviewed and are negative [facility] Past Medical History Medical History (Updated 09/07/21 @ 19:19 by Cheri Beck PA-C) CAD (coronary artery disease) Hyperlipidemia Hypertension Surgical History Surgical History History of appendectomy S/P placement of cardiac pacemaker Social History Social History (Updated 08/26/21 @ 10:11 by Chapincito Rosales MD) Household Members: Spouse Housing: House Do you presently have visiting nurse or other home services: No Alcohol intake: never Patient Tobacco Use Status: Never used Tobacco service: No Current occupational status: retired [employer] Allergies Allergy/AdvReac Type Severity Reaction Status Date / Time No Known Allergies Allergy Unverified 07/02/20 16:44 Active Medications: Current Medications Acetaminophen (Acetaminophen 325 Mg Tablet) 650 mg PO Q6H PRN PRN Reason: Fever Last Admin: 09/02/21 09:57 Dose: 650 mg Documented by: Albuterol/Ipratropium (Albuterol/Iprat 2.5/0.5mg 3 Ml Ampul.Neb) 3 ml INHALE RQ4H WHILE AWAKE [facility] Last Admin: 09/07/21 11:30 Dose: 3 ml Documented by: Atorvastatin Calcium (Atorvastatin Calcium 20 Mg Tablet) 20 mg PO BEDTIME JESSICA Last Admin: 09/06/21 21:22 Dose: 20 mg Documented by: Dexamethasone Sodium Phosphate (Dexamethasone Sod Phosphate 4 Mg/Ml Vial) 6 mg IVPUSH DAILY [facility] Last Admin: 09/07/21 09:30 Dose: 6 mg Documented by: Escitalopram Oxalate (Escitalopram Oxalate 10 Mg Tablet) 10 mg PO DAILY [facility] Last Admin: 09/07/21 09:30 Dose: 10 mg Documented by: Famotidine (Famotidine 20 Mg Tablet) 20 mg PO BID [facility] Last Admin: 09/07/21 09:30 Dose: 20 mg Documented by: Furosemide (Furosemide 40 Mg Tablet) 40 mg PO DAILY [facility]; Protocol Last Admin: 09/07/21 09:31 Dose: 40 mg Documented by: Hydroxyzine HCl (Hydroxyzine Hcl 25 Mg Tablet) 25 mg PO Q6H PRN PRN Reason: anxiety/restlessness Last Admin: 09/05/21 17:55 Dose: 25 mg Documented by: Levothyroxine Sodium (Levothyroxine Sodium 175 Mcg Tablet) 175 mcg PO DAILY@0600 [facility] Last Admin: 09/07/21 06:15 Dose: 175 mcg Documented by: Lisinopril (Lisinopril 20 Mg Tablet) 20 mg PO DAILY [facility]; Protocol Last Admin: 09/02/21 09:48 Dose: 20 mg Documented by: Metoprolol Succinate (Metoprolol Succinate Er 100 Mg Tab.Er.24h) 200 mg PO DAILY [facility]; Protocol Last Admin: 09/07/21 09:31 Dose: 200 mg Documented by: Morphine Sulfate (Morphine Sulfate 2 Mg/Ml Cartridge) 1 mg IVPUSH Q6H PRN; Protocol PRN Reason: Pain, Mild (Pain Scale 1-3) Last Admin: 09/07/21 11:18 Dose: 1 mg Documented by: Nystatin (Nystatin Powder 15 Gm Bottle) 1 appl TOPICAL BID [facility]; Protocol Last Admin: 09/07/21 09:29 Dose: 1 appl Documented by: Omeprazole (Omeprazole 20 Mg Capsule.Dr) 20 mg PO DAILY@0630 [facility] Last Admin: 08/31/21 05:16 Dose: 20 mg Documented by: Ondansetron HCl (Ondansetron Hcl 4 Mg/2 Ml Vial) 4 mg IVPUSH Q8H PRN PRN Reason: Nausea and Vomiting Pharmacy Consult (Consult Rx Perform Med Rec) 1 each MISCELLANE ONCE PRN PRN Reason: Consult order Sodium Chloride (0.9 % Sodium Chloride Flush 3 Ml Syringe) 3 ml IVFLUSH QSHIFT [facility] Last Admin: 09/07/21 09:30 Dose: 3 ml Documented by: Warfarin Sodium (Warfarin Sodium 1 Mg Tablet) 1 mg PO DAILY@1800 [facility] Last Admin: 09/06/21 18:21 Dose: 1 mg Documented by: Zinc Sulfate (Zinc Sulfate 220 Mg Capsule) 220 mg PO DAILY [facility] Last Admin: 09/07/21 09:30 Dose: 220 mg Documented by: Home Medications Medication Instructions Recorded Confirmed Last Taken Type ascorbic acid (vitamin C) 500 mg 500 mg PO DAILY 08/26/21 08/26/21 08/25/21 History tablet (Vitamin C) citalopram 20 mg tablet 20 mg PO DAILY 08/26/21 08/26/21 08/25/21 History furosemide 20 mg tablet 20 mg PO DAILY 08/26/21 08/26/21 08/25/21 History levothyroxine 175 mcg tablet 175 mcg PO DAILY 08/26/21 08/26/21 08/25/21 History lisinopril 20 mg tablet 20 mg PO DAILY 08/26/21 08/26/21 08/25/21 History metoprolol succinate 200 mg 200 mg PO DAILY 08/26/21 08/26/21 08/25/21 History tablet,extended release 24 hr multivitamin 1 tab PO DAILY 08/26/21 08/26/21 08/25/21 History omeprazole 20 mg capsule,delayed 20 mg PO DAILY 08/26/21 08/26/21 08/25/21 History release oxycodone 5 mg tablet 5 mg PO Q6H 08/26/21 08/26/21 08/25/21 History simvastatin 40 mg tablet 40 mg PO BEDTIME 08/26/21 08/26/21 08/25/21 History warfarin 5 mg tablet (Jantoven) 1 tab PO DAILY@1800 08/26/21 08/26/21 08/25/21 History Physical Exam Vital Signs: Vital Signs: Last Vital Signs Temp 97.5 F 09/07/21 11:22 Pulse 60 09/07/21 11:35 Resp 20 09/07/21 11:30 BP 119/67 09/07/21 11:22 Pulse Ox 92 09/07/21 11:22 Body Mass Index 48.4 Const: General: cooperative, healthy appearing and no acute distress Resp: Effort & Inspection: normal respiratory effort and able to speak in complete sentences Cardio: Rate: regular rate Peripheral pulses: Peripheral pulses 2+ throughout GI: Palpation (GI): Soft to palpation Skin: Lesions: no lesions Rashes: no rashes Extrem: Other: Right wrist ecchymosis located along the anterior aspect of the forearm circumferentially. Significant tenderness to palpation of the distal radius. Patient is able to slightly flex and extend but is limited due to pain. Patient is unable to make a closed fist and is lacking about 4 cm from finger tip to palm. She is able to demonstrate finger flexion, extension, abduction, adduction, finger cross, okay sign and thumbs up. Sensation is intact. Radial pulse intact. Results Labs Result Diagrams: 09/07/21 06:28 09/07/21 06:28 Labs: Abnormal lab results 09/07/21 09/07/21 09/07/21 Range/Units 06:28 06:28 07:41 WBC 13.3 H (4.8-10.8) X10*3/uL Plt Count 159 L (160-400) X10*3/uL PT 32.9 H (9.9-13.0) SEC INR 2.8 H (0.9-1.1) Carbon Dioxide 31 H (22-29) mmol/L BUN 34 H (9-16) mg/dL Ferritin 2614 H (10-250) ng/mL C-Reactive Protein 17.21 H (< or = 0.50) mg/dL H & H 08/26/21 08/27/21 08/29/21 Range/Units 04:33 05:58 06:17 Hgb 12.5 12.4 13.4 (12.0-16.0) g/dl Hct 37.9 38.0 41.4 (37.0-47.0) % 08/30/21 08/31/21 09/07/21 Range/Units 06:25 05:55 06:28 Hgb 13.2 14.0 14.2 (12.0-16.0) g/dl Hct 40.1 42.4 42.5 (37.0-47.0) % Coagulation 08/26/21 08/27/21 08/28/21 Range/Units 10:20 05:58 06:12 INR 4.0 H 3.3 H 2.8 H (0.9-1.1) 08/29/21 08/30/2108/31/21 Range/Units 06:17 06:25 05:55 INR 3.0 H 3.9 H 3.9 H (0.9-1.1) 09/01/21 09/02/21 09/03/21 Range/Units 06:05 06:32 06:28 INR 3.8 H 2.7 H 2.4 H (0.9-1.1) 09/04/21 09/05/21 09/06/21 Range/Units 05:51 05:22 06:04 INR 2.5 H 3.0 H 3.1 H (0.9-1.1) 09/07/21 Range/Units 07:41 INR 2.8 H (0.9-1.1) All other labs normal. Assessment and Plan (1) Fracture of right distal radius: Status: Acute Ms. lees is a 75-year-old knwps-tfay-yfbkoyjn female who presented to the emergency department on 08/26/2021 for worsening shortness of breath status post COVID diagnosis 3 days prior. Patient also had sustained a mechanical fall some weeks prior resulting in a right wrist fracture. However, the patient is unable to recollect the events causing her right wrist fracture her who she is being treated by. The patient had a right wrist splint on prior to admission but at some point the patient had removed. X-rays were obtained and she was found to have a right distal radius fracture with widening of the scapholunate joint. Recommendation for a Velcro wrist splint of the right wrist. There is no further orthopedic intervention needed at this time. (2) Right scapholunate ligament tear: Status: Acute Procedures Date of Service Date of Service: 09/07/21
[2021-09-07] MEDS: Warfarin Sodium 1 MG TABLET PO (17:19)
[2021-09-07] MEDS: hydrOXYzine HCL 25 MG TABLET PO (20:51)
[2021-09-07] MEDS: Atorvastatin Calcium 20 MG TABLET PO (20:51)
[2021-09-08] VITALS (13 sets, daily range): BP systolic 98–118; BP diastolic 54–70; PULSE 60–88; RESP 18–22; TEMP 35.5–36.6; O2SAT 87–93
[2021-09-08] MEDS: Morphine Sulfate 2 MG/ML CARTRIDGE 1 MG IVPUSH ×2 (02:41→10:44)
[2021-09-08] MEDS: Levothyroxine Sodium 175 MCG TABLET PO (05:41)
[2021-09-08] MEDS: Albuterol/Iprat 2.5/0.5MG 3 ML AMPUL.NEB INHALE ×4 (07:44→20:19)
[2021-09-08 08:44] LABS: INTERNATIONAL NORM RATIO 2.8 (0.9-1.1); Prothrombin Time 32.6 SEC (9.9-13.0)
[2021-09-08] MEDS: Metoprolol Succinate ER 100 MG TAB.ER.24H 200 MG PO (09:51)
[2021-09-08] MEDS: Zinc Sulfate 220 MG CAPSULE PO (09:52)
[2021-09-08] MEDS: Escitalopram Oxalate 10 MG TABLET PO (09:52)
[2021-09-08] MEDS: Famotidine 20 MG TABLET PO ×2 (09:52→20:48)
[2021-09-08] MEDS: dexAMETHasone sod phosphate 4 MG/ML VIAL 6 MG IVPUSH (09:53)
[2021-09-08] MEDS: 0.9 % Sodium Chloride Flush 3 ML SYRINGE IVFLUSH ×3 (09:53→20:48)
[2021-09-08] MEDS: Furosemide 40 MG TABLET PO (09:53)
[2021-09-08] MEDS: Nystatin Powder 15 GM BOTTLE 1 APPL TOPICAL ×2 (10:51→20:49)
--- NOTE | 2021-09-08 16:59 | HO.PM.IMPN ---
Subjective Subjective Date of Service: 09/08/21 Interval History: Acute hypoxemic respiratory failure secondary to COVID, essentially unchged, remains hypoxic with O2 requirement Review of Systems sob no fever no istress, anxious Constitutional Constitutional: Denies chills and Denies fever(s) Cardiovascular Cardiovascular: Denies chest pain Gastrointestinal Gastrointestinal: Denies abdominal pain Physical Exam Vital Signs: Vital Signs: Last Vital Signs Temp 96.9 F 09/08/21 15:11 Pulse 63 09/08/21 15:11 Resp 20 09/08/21 15:11 BP 104/63 09/08/21 15:11 Pulse Ox 90 L 09/08/21 15:11 Body Mass Index 48.4 Extrem: Other: Right wrist ecchymosis located along the anterior aspect of the forearm circumferentially. Significant tenderness to palpation of the distal radius. Patient is able to slightly flex and extend but is limited due to pain. Patient is unable to make a closed fist and is lacking about 4 cm from finger tip to palm. She is able to demonstrate finger flexion, extension, abduction, adduction, finger cross, okay sign and thumbs up. Sensation is intact. Radial pulse intact. Objective Data Active Medications Acetaminophen (Acetaminophen 325 Mg Tablet) 650 mg PO Q6H PRN PRN Reason: Fever Last Admin: 09/02/21 09:57 Dose: 650 mg Documented by: LOIS Albuterol/Ipratropium (Albuterol/Iprat 2.5/0.5mg 3 Ml Ampul.Neb) 3 ml INHALE RQ4H WHILE AWAKE [facility] Last Admin: 09/08/21 14:39 Dose: 3 ml Documented by: DARION Atorvastatin Calcium (Atorvastatin Calcium 20 Mg Tablet) 20 mg PO BEDTIME [facility] Last Admin: 09/07/21 20:51 Dose: 20 mg Documented by: JOHN PAUL Dexamethasone Sodium Phosphate (Dexamethasone Sod Phosphate 4 Mg/Ml Vial) 6 mg IVPUSH DAILY [facility] Last Admin: 09/08/21 09:53 Dose: 6 mg Documented by: STEPHANE Escitalopram Oxalate (Escitalopram Oxalate 10 Mg Tablet) 10 mg PO DAILY [facility] Last Admin: 09/08/21 09:52 Dose: 10 mg Documented by: STEPHANE Famotidine (Famotidine 20 Mg Tablet) 20 mg PO BID [facility] Last Admin: 09/08/21 09:52 Dose: 20 mg Documented by: STEPHANE Furosemide (Furosemide 40 Mg Tablet) 40 mg PO DAILY [facility]; Protocol Last Admin: 09/08/21 09:53 Dose: 40 mg Documented by: STEPHANE Hydroxyzine HCl (Hydroxyzine Hcl 25 Mg Tablet) 25 mg PO Q6H PRN PRN Reason: anxiety/restlessness Last Admin: 09/07/21 20:51 Dose: 25 mg Documented by: JOHN PAUL Levothyroxine Sodium (Levothyroxine Sodium 175 Mcg Tablet) 175 mcg PO DAILY@0600 [facility] Last Admin: 09/08/21 05:41 Dose: 175 mcg Documented by: JOHN PAUL Lisinopril (Lisinopril 20 Mg Tablet) 20 mg PO DAILY [facility]; Protocol Last Admin: 09/02/21 09:48 Dose: 20 mg Documented by: LOIS Metoprolol Succinate (Metoprolol Succinate Er 100 Mg Tab.Er.24h) 200 mg PO DAILY [facility]; Protocol Last Admin: 09/08/21 09:51 Dose: 200 mg Documented by: STEPHANE Morphine Sulfate (Morphine Sulfate 2 Mg/Ml Cartridge) 1 mg IVPUSH Q6H PRN; Protocol PRN Reason: Pain, Mild (Pain Scale 1-3) Last Admin: 09/08/21 10:44 Dose: 1 mg Documented by: STEPHANE Nystatin (Nystatin Powder 15 Gm Bottle) 1 appl TOPICAL BID [facility]; Protocol Last Admin: 09/08/21 10:51 Dose: 1 appl Documented by: STEPHANE Omeprazole (Omeprazole 20 Mg Cielo.) 20 mg PO DAILY@0630 [facility] Last Admin: 08/31/21 05:16 Dose: 20 mg Documented by: SADIA Ondansetron HCl (Ondansetron Hcl 4 Mg/2 Ml Vial) 4 mg IVPUSH Q8H PRN PRN Reason: Nausea and Vomiting Pharmacy Consult (Consult Rx Perform Med Rec) 1 each MISCELLANE ONCE PRN PRN Reason: Consult order Sodium Chloride (0.9 % Sodium Chloride Flush 3 Ml Syringe) 3 ml IVFLUSH QSHIFT [facility] Last Admin: 09/08/21 09:53 Dose: 3 ml Documented by: STEPHANE Warfarin Sodium (Warfarin Sodium 1 Mg Tablet) 1 mg PO DAILY@1800 [facility] Last Admin: 09/07/21 17:19 Dose: 1 mg Documented by: DOBROB Zinc Sulfate (Zinc Sulfate 220 Mg Capsule) 220 mg PO DAILY [facility] Last Admin: 09/08/21 09:52 Dose: 220 mg Documented by: STEPHANE Labs CBC & Chem 7: 09/07/21 06:28 09/07/21 06:28 Labs: Laboratory Results - last 24 hr 09/08/21 06:21 PT 32.6 H INR 2.8 H Assessment and Plan (1) COVID-19: Status: Acute (2) Congestive heart failure: Status: Acute (3) Right scapholunate ligament tear: Status: Acute Assessment and Plan: 75yo unvaccinated with covid 19, tested + at [facility] on 08/24/21, admitted for hypoxia. 1.acute hypoxic resp failure sec covid. 2. Covid PNA -O2 and keep sat above 88 -continue IV steroid -if worsens to ICU 3. CHF, likely chronic diastolic type - was on IV Lasix, now PO -check BMP tomorrow -Echo?Ejection fraction is 60-65 4. AF on warfarin- INR within range 5. intra-articular R distal radius fx- outpt ORIF planned, continue splint per otho 6. hypothyroidism- continue LT4 7.GERD- continue PPI 8. mood disorder- continue escitalopram, still anxious given p.r.n. Xanax, also will add care team evaluation ?VTE ppx back on warfarin. Quality Stroke Does the patient have a stroke diagnosis?: No VTE Prior VTE?: No VTE Risk Level:: Medical - moderate - high VTE Device Contraindication: Treatment Not Indicated VTE Drug Contraindication: N/A - Med Ordered
[2021-09-08] MEDS: Warfarin Sodium 1 MG TABLET PO (18:31)
[2021-09-08] MEDS: Atorvastatin Calcium 20 MG TABLET PO (20:48)
[2021-09-09] VITALS (24 sets, daily range): BP systolic 99–168; BP diastolic 58–82; PULSE 60–120; RESP 14–25; TEMP 35.8–37.6; O2SAT 81–93
--- NOTE | 2021-09-09 | ECG_ITS ---
Test Reason : RYTHYM CHECK Blood Pressure : / mmHG Vent. Rate : 060 BPM Atrial Rate : 060 BPM P-R Int : 248 ms QRS Dur : 164 ms QT Int : 518 ms P-R-T Axes : 000 -34 078 degrees QTc Int : 518 ms Poor data quality Electronic ventricular pacemaker Abnormal ECG When compared with ECG of 26-AUG-2021 04:37, No significant changes seen Referred By: Serafin Rosenberg Electronically Signed By:DORY SERRANO MD
[2021-09-09] MEDS: Morphine Sulfate 2 MG/ML CARTRIDGE 1 MG IVPUSH (01:32)
[2021-09-09] MEDS: Levothyroxine Sodium 175 MCG TABLET PO (04:52)
[2021-09-09] MEDS: hydrOXYzine HCL 25 MG TABLET PO (04:52)
[2021-09-09] MEDS: Albuterol/Iprat 2.5/0.5MG 3 ML AMPUL.NEB INHALE ×4 (05:49→19:46)
[2021-09-09 06:08] LABS: ABG Refer to POC result
[2021-09-09 06:09] LABS: ABG Base Excess 11.7 mmol/L; ABG HCO3 35 mmol/L (22-26); ABG pCO2 40 mmHg (32-45); ABG pCO2 TC 39 mmHg (32-45); ABG pH 7.54 (7.35-7.45); ABG pH TC 7.55 (7.35-7.45); ABG pO2 59 mmHg (83-108); ABG pO2 TC 55 (83-108)
--- NOTE | 2021-09-09 06:36 | PC.NURSE ---
Patient's O2 sats sustaining in the low 80's for a few hours, only getting to 86/87% intermittently - pt is not pulling off oxygen. Dr. Sanford notified. CXR, ABG's, BMP and BNP ordered.
[2021-09-09 07:58] LABS: INTERNATIONAL NORM RATIO 3.1 (0.9-1.1); Prothrombin Time 36.5 SEC (9.9-13.0)
[2021-09-09 08:08] LABS: B Type Natriuretic Peptide 321 pg/mL (<100)
[2021-09-09] MEDS: 0.9 % Sodium Chloride Flush 3 ML SYRINGE IVFLUSH (09:23)
[2021-09-09] MEDS: dexAMETHasone sod phosphate 4 MG/ML VIAL 6 MG IVPUSH (09:23)
[2021-09-09] MEDS: LORazepam 2 MG/ML VIAL 0.5 MG IVPUSH (09:24)
[2021-09-09] MEDS: Zinc Sulfate 220 MG CAPSULE PO (09:25)
[2021-09-09] MEDS: Escitalopram Oxalate 10 MG TABLET PO (09:25)
[2021-09-09] MEDS: Famotidine 20 MG TABLET PO (09:25)
[2021-09-09] MEDS: Nystatin Powder 15 GM BOTTLE 1 APPL TOPICAL (09:25)
[2021-09-09] MEDS: Furosemide 40 MG TABLET PO (09:25)
[2021-09-09] MEDS: Metoprolol Succinate ER 100 MG TAB.ER.24H 200 MG PO (09:25)
[2021-09-09] MEDS: Furosemide 40 MG/4 ML VIAL IVPUSH (10:19)
--- NOTE | 2021-09-09 10:57 | MHC.CM.PN ---
Female 75 DX Covid+ Has been transferred to ICU. SPO2 low with high doses supplemental oxygen.
[2021-09-09 11:32] LABS: D Dimer High Sensitivity 33920 NG/ML
--- NOTE | 2021-09-09 12:03 | PM.CCPN ---
Subjective Subjective Date of Service: 09/09/21 Interval History: Mrs. Sánchez was transferred to the ICU this morning with altered mental status and hypoxemic respiratory failure secondary to COVID pneumonia. The patient is a 75-year-old woman with past medical history of hypertension, hyperlipidemia, coronary artery disease, status AMI about 5 years ago, hypothyroidism, probable anxiety disorder, and status post cholecystectomy.? She also has a PPM, and takes Coumadin, presumably for atrial fibrillation.? Her home meds include Lasix 20 mg daily, oxycodone, citalopram, lisinopril 20 mg daily, metoprolol ER 200 mg daily, and Coumadin 5 mg daily. The patient had a positive COVID test on August 23.? (Therefore assume symptom onset date of August 22.) ?She was BIBA ambulance to the ED for shortness of breath and dizziness on Aug 26.? Sat was 90% on room air.? BUN/creat were 18/0.9.? DDimer 425, ferritin 534, PCT negative.? BNP was 799.? CXR (my reading) showed minimal increased interstitial markings, but the radiologist read it as showing no acute findings. ?She also had a subacute intraarticular fracture of the right distal radius. The patient was given Lasix and admitted to Medicine with the diagnosis of COVID pneumonia, and CHF.? She was treated with Decadron and supplemental oxygen by nasal cannula.? Orthopedics rec a Velcro splint for the wrist, no further treatment.? Her FiO2 requirement increased progressively.? Chest CT on Sep 01 showed mild scattered ground-glass opacities typical of COVID.? She was up to 15 L by September 02.? She was on high-flow 95% FiO2 by the next day, followed by high-flow + NRBFM.? She was nontachypneic for most of her hospital stay until this morning. Echocardiogram on September 04 showed: - LV EF 60-65%, w moderately increased wall thickness, no RWMAs.? Diastolic function indeterminate bec the patient was in afib. - RV normal size, borderline systolic function. - Mild , no MR, trace TR. - IVC normal in size. The patient was increasingly anxious and restless this morning, taking off her oxygen mask.? Arterial blood gas at 06:00 this morning showed 7.54/40/59/+11 (presumably on 95% HFNC). ?She appeared to be in potential need of tracheal intubation.? Therefore she given a dose of Lasix, and transferred down to the ICU. I saw the patient on arrival to the ICU.? Wt is 136kg, ht 5-6?.? On my exam with the nurse and me in the room, the patient is calm but easily becomes delirious on exam and with nursing maneuvers.? Respiratory rate was about 25 on HFNC 60 L/95% + NRBFM on full flush, with just a hint of accessory muscle use.? Sat was 85-87%.? HR about 60, Afib, paced.? BP 105/67.? She?s been afebrile the entire hospital stay.? No JVD at 30-40?.? Chest is CTA w normal exp phase.? Heart tones very soft; I heard no murmur or gallops.? Abdomen is obese and benign.? The patient has trivial peripheral edema. ?She definitely has tenderness of the right wrist. LABORATORY DATA:? INR 3.1 today.? High sensitivity D-dimer 45701 (last regular D-dimer was 525 on 08/31).? BNP 321.? Last chemistries were on 09/07, showed BUN/creatinine 34/0.7, ferritin level 2614, CRP 17. Chest x-ray today showed bibasilar and left lung patchy and interstitial infiltrates, signif worse compared to her prev film, c/w COVID. IMPRESSION: 1. Bilateral COVID pneumonia. 2. ARDS. 3. Possible congestive heart failure, most likely diastolic (ie. HFpEF) based on her echo, with elevated BNP. 4. Acute hypoxemic respiratory failure.? Secondary to above.? Clinically, no need for tracheal intubation at this time.? In the arterial blood gas objectively confirms that she does have some reserve. 5. ?Markedly elevated D-dimer.? Needs a duplex study to rule out DVT.? (Given that she is therapeutically anticoagulated on Coumadin, one would think DVT and PE are unlikely.) 6. NOEL.? She could be dry (Hb looks hemoconcentrated), she could have cardiorenal syndrome, or this could be 2? COVID.? Either way, I?m not giving her fluids at this time.? But I will hold off on further diuretics. ADDENDUM:? The patient has bilat posteriror tibial DVT.? Discussed with Dr. Ceja in Radiology.? No indication for IVC filter at this time, unless the DVT propagates.? We?ll repeat the DVT study in 3 days.? In the meantime, we?ll switch her from Coumadin to heparin. Critical care time (including hosp course summary, mult d/w radiology, called seven hospitals to attempt transfer for IVC filter):? 2+ hrs. Critical Care Time (minutes): 120 Physical Exam Vital Signs: Vital Signs: Last Vital Signs Temp 97.0 F 09/09/21 08:00 Pulse 61 09/09/21 11:14 Resp 24 H 09/09/21 11:14 BP 111/67 09/09/21 09:25 Pulse Ox 87 L 09/09/21 08:00 Body Mass Index 48.4 Objective Data Labs CBC & Chem 7: 09/07/21 06:28 09/07/21 06:28 Labs: Laboratory Results - last 24 hr 09/09/21 09/09/21 09/09/21 06:02 07:10 07:10 PT 36.5 H INR 3.1 H D-Dimer High Sensitivty 46277 O2 Saturation 85.0 ABG pH at Pt Temp 7.54 H ABG pH (Temp Correct) 7.55 H ABG pCO2 at Pt Temp 40 ABG pCO2 (Temp Corrct 39 ABG pO2 at Pt Temp 59 L ABG pO2 (Temp Correct 55 L ABG HCO3 35 H ABG Base Excess (Actual) 11.7 B-Natriuretic Peptide 321 H Microbiology Microbiology Results: Microbiology 08/26/21 07:27 Blood - Venous Blood Culture - Final No growth after 5 days. 08/26/21 06:39 Blood - Venous Blood Culture - Final No growth after 5 days. Quality Stroke Does the patient have a stroke diagnosis?: No VTE Prior VTE?: No VTE Risk Level:: Medical - moderate - high VTE Device Contraindication: Treatment Not Indicated VTE Drug Contraindication: N/A - Med Ordered Critical Care Time Critical Care Time (minutes): 120
[2021-09-09] MEDS: dexmedeTOMIDidine HCL/NS 400 MCG/100 ML INFUS..BTL 13.6 MCG IVCONT (12:15)
[2021-09-09 15:31] LABS: PLT CLUMP 1
[2021-09-09 15:32] LABS: VBG HCO3 35 mmol/L (22-26); VBG pCO2 37 mmHg; VBG pH 7.58 (7.32-7.43); VBG pO2 73 mmHg
[2021-09-09 15:33] LABS: Hematocrit 38.9 % (37.0-47.0); Hemoglobin 13.4 g/dl (12.0-16.0); Mean Corpuscular HGB Conc 34.4 g/dl (31.0-35.0); Mean Corpuscular Hemoglobin 32.9 pg (27.0-33.0); Mean Corpuscular Volume 95.6 fL (80.0-98.0); Mean Platelet Volume 11.3 fL (9.4-12.3); Red Blood Count 4.07 X10*6/uL (4.20-5.50); Red Cell Distribution Width 14.7 % (11.0-16.0); White Blood Count 17.7 X10*3/uL (4.8-10.8)
[2021-09-09 15:41] LABS: Partial Thromboplastin Time 39.3 SEC (24.1-38.0)
[2021-09-09] MEDS: dexmedeTOMIDidine HCL/NS 400 MCG/100 ML INFUS..BTL 20.4 MCG IVCONT ×3 (15:43→22:28)
[2021-09-09 15:47] LABS: Alanine Aminotransferase 140 U/L (0-31); Albumin Level 2.3 g/dL (3.5-5.0); Alkaline Phosphatase 171 U/L (39-117); Anion Gap 16 (12-20); Aspartate Amino Transferase 112 U/L (5-31); Bilirubin Total 3.7 mg/dL (0.0-1.0); Blood Urea Nitrogen 43 mg/dL (9-16); Calcium 8.3 mg/dL (8.4-10.2); Carbon Dioxide 30 mmol/L (22-29); Chloride 99 mmol/L (96-108); Creatinine Clr Calc Pharmacy 81.8; Estimated Glomerular Filt Rate > 60; Glucose Random 163 mg/dL (60-115); Magnesium 2.1 mg/dL (1.6-2.6); Phosphorus 3.9 mg/dL (2.7-4.5); Potassium 3.9 mmol/L (3.3-5.1); Sodium 141 mmol/L (135-145); Total Protein 5.7 g/dL (6.5-8.0)
[2021-09-09 15:49] LABS: Platelet Count 92 X10*3/uL (160-400)
[2021-09-09 15:50] LABS: Venous Blood Gas Refer to POC result
--- NOTE | 2021-09-09 15:54 | P.EN_ITS ---
Event Note Date of Service: 09/09/21 Event Note: patient was examined at bedside, patient appears very anxious, a gitated, has difficulty with keeping her non-rebreather as well as her high-flow on, continues to removed think every few minutes, desatting to the low 80s, very difficult to direct, patient is full code, on examination she is very anxious and agitated, cannot follow command, even while I was examining her she removed her high-flow non-rebreather. patient is full code, given her difficulty with following depression as well as inability to maintain and protect her airways, a decision has been made to transfer patient to ICU. Spoke to Dr. Marina and pt will be transferred and will be placed on precedex drip. her has been notified
[2021-09-09 16:51] LABS: Ferritin 2742 ng/mL (10-250)
[2021-09-09] MEDS: Doxycycline Hyclate 100 MG in 0.9 % Sodium Chloride 250 ML 166.67 MG IV (17:13)
[2021-09-09] MEDS: acetaZOLAMIDE sodium 500 MG VIAL IVPUSH (17:13)
[2021-09-09 17:37] LABS: Procalcitonin 0.28 ng/mL
[2021-09-09] MEDS: methylPREDNISolone Sod Succ 125 MG/2 ML VIAL 80 MG IVPUSH (19:57)
[2021-09-09 20:13] LABS: Venous Blood Gas Refer to POC result
[2021-09-09 20:15] LABS: Basophils Percent Auto 0.1 % (0-2); Hematocrit 41.3 % (37.0-47.0); Hemoglobin 13.7 g/dl (12.0-16.0); Imm Gran Abs Auto 0.26 X10*3/uL (0.00-0.03); Imm Gran Pct Auto 1.5 % (0.0-0.4); Lymphocytes Absolute Auto 0.5 X10*3/uL (1.2-4.9); Lymphocytes Percent Auto 3.1 % (20-40); MANUAL DIFF FLAG SCAN; Mean Corpuscular HGB Conc 33.2 g/dl (31.0-35.0); Mean Corpuscular Hemoglobin 32.7 pg (27.0-33.0); Mean Corpuscular Volume 98.6 fL (80.0-98.0); Monocytes Absolute Auto 0.5 X10*3/uL (0.1-1.2); Monocytes Percent Auto 2.9 % (2-11); Neutrophils Absolute Auto 16.2 x10*3/uL (2.0-8.3); Neutrophils Percent Auto 92.4 % (45-73); Red Blood Count 4.19 X10*6/uL (4.20-5.50); Red Cell Distribution Width 14.9 % (11.0-16.0); SCAN SMEAR FLAG 1; White Blood Count 17.5 X10*3/uL (4.8-10.8)
[2021-09-09 20:15] LABS: VBG Base Excess 9.4 mmol/L; VBG HCO3 31 mmol/L (22-26); VBG pCO2 35 mmHg; VBG pH 7.56 (7.32-7.43); VBG pO2 111 mmHg
[2021-09-09 20:22] LABS: INTERNATIONAL NORM RATIO 3.7 (0.9-1.1); Prothrombin Time 43.7 SEC (9.9-13.0)
[2021-09-09 20:24] LABS: Partial Thromboplastin Time 41.4 SEC (24.1-38.0)
[2021-09-09 20:33] LABS: Platelet Count 77 X10*3/uL (160-400); SLIDE REVIEW VERIFIED
[2021-09-09 20:38] LABS: Chloride 102 mmol/L (96-108)
[2021-09-09 20:39] LABS: Alanine Aminotransferase 133 U/L (0-31); Albumin Level 2.3 g/dL (3.5-5.0); Alkaline Phosphatase 158 U/L (39-117); Anion Gap 15 (12-20); Aspartate Amino Transferase 100 U/L (5-31); Bilirubin Total 3.7 mg/dL (0.0-1.0); Blood Urea Nitrogen 46 mg/dL (9-16); Calcium 8.2 mg/dL (8.4-10.2); Carbon Dioxide 27 mmol/L (22-29); Creatinine Clr Calc Pharmacy 78.2; Estimated Glomerular Filt Rate > 60; Glucose Random 175 mg/dL (60-115); Magnesium 2.3 mg/dL (1.6-2.6); Phosphorus 4.1 mg/dL (2.7-4.5); Sodium 140 mmol/L (135-145); Total Protein 5.9 g/dL (6.5-8.0)
[2021-09-09] MEDS: Albumin Human 25 % 100 ML IV ×2 (21:49→22:28)
[2021-09-09] MEDS: Lactated Ringers 1,000 ML 999 ML IV (21:49)
[2021-09-09] MEDS: Naloxone HCl 0.4 MG/ML VIAL IVPUSH (21:50)
[2021-09-09] MEDS: HYDROmorphone HCl 2 MG/ML VIAL IVPUSH (21:51)
[2021-09-09] MEDS: Lactated Ringers 1,000 ML 100 ML IVCONT (21:54)
[2021-09-09 23:15] LABS: B Type Natriuretic Peptide 393 pg/mL (<100)
[2021-09-10] VITALS: PULSE 60; RESP 13; TEMP 35.6; O2SAT 82
[2021-09-10 01:00] VITALS: BP 106/89; PULSE 60; RESP 26; TEMP 35.7; O2SAT 80
[2021-09-10] MEDS: Rocuronium Bromide 50 MG/5 ML VIAL IVPUSH (01:31)
[2021-09-10] MEDS: Bumetanide 1 MG/4 ML VIAL 2 MG IVPUSH (01:31)
[2021-09-10 01:32] VITALS: BP 84/52; PULSE 60; TEMP 31; O2SAT 82
[2021-09-10 02:00] VITALS: BP 130/78; PULSE 60; RESP 18; TEMP 35.7
--- NOTE | 2021-09-10 02:05 | W.PM.CCHP ---
Procedures Date of Service Date of Service: 09/10/21 Abscess I/D Consent for Procedure: Emergent-no informed consent obtained Chest Tube Chest Tube 1: Chest tube location: Mid-Clavicular Chest ( Pigtail Arrow tube ) Chest tube procedure: Yes betadine prep Tube sutured to skin: Yes Incision made with: other (guide needle insertion ) Post procedure: sutured to skin Banerjee of air heard: Yes Tube Drainage: none Post procedure CXR?: Yes Patient tolerated procedure: Yes Progress: The tube appeared to be in good position, there was good banerjee of air, when connected to suction of the pleura vac and it was clean air and it was clear movement of the valve; no fluid or blood noted. the patient's O2 sat improved from 78 up to 87% for approximately 10 minutes and unfortunately her O2 sat went back down to the low 80s and high 70s, suction was checked as well as the pleura vac and I noticed that the banerjee of air and the vac movements seemed not to be continuous. At this point patient continues to be hypoxic with O2 sat of 78-80% while on a vent; the emergency room physician was called for backup and Dr. Marina, was called into the hospital for I was concerned that the chest tube was not working, the x-ray was also reviewed with the radiologist and he thought the pigtail catheter was in place but there was no improvement of the pneumothorax on the right and stable pneumothorax on the left. Due to the urgentcy of the matter and while my MD got to the ICU the tail catheter was replaced by a larger catheter with good air banerjee but without improvement of the O2 sat. Dr. Guerrero was there to help then and preped to place a R large size chest tube, but at this time 0230 am the pt went into V fib, a code blue was activated and the chest tube placement by her was stopped.
[2021-09-10 02:55] LABS: Glucose, Whole Blood 157 mg/dL (60-115)
[2021-09-10 03:08] LABS: VBG HCO3 35 mmol/L (22-26); VBG O2 % Saturation < 30.0 %; VBG pCO2 144 mmHg; VBG pH 6.99 (7.32-7.43); VBG pO2 22 mmHg
[2021-09-10 03:10] LABS: ABG Base Excess 0.1 mmol/L; ABG HCO3 35 mmol/L (22-26); ABG O2 % Saturation < 30.0 %; ABG pCO2 140 mmHg (32-45); ABG pO2 23 mmHg (83-108)
--- NOTE | 2021-09-10 03:34 | PC.NURSE ---
1900 upon initial assessment patient found with NRB at 15L and [place] NC 60L 100% with an sp02 of 93%. Pt was mildly sedated on precedex. Pt was v-paced with afib on tele HR 60's. Pt was arousable with light tactile stimuli and would move her extremities and groan. Pt also tried to get out of bed at one point. Pt did not answer questions, or follow commands. Pt confused and disoriented. Urine out put 70-100mls/hr through andersen. 1mg of dilaudid given for pre-procedure. PA aware of labs, 2030 PA started 1st attempt to place RJ TLC, unsuccessful. Second attempted followed and was also unsuccessful, ending at roughly 2130 followed by 1 mg of Dilaudid post-procedure for increased WOB and satting 85%. Pt then recieved 0.4mg IV narcan x1. CXR was ordered after attempts. Pt was then saturating 83-86% while PA at bedside and aware. 2145 LR Fluids were given with 500cc bolus followed by 100mls per hour with 2 bottles albumin and PA contacted family regarding code status and plan of care. Family decided pt remained full code. @ 2315 approximately Urine out put was less than 30 per hour, fluids were stopped. 2350 2mg of Bumex was given. 0000 pt still confused, arousable to tactile stimuli. maxed out on NRB/HFNC satting 80-83%. Decision to intubated made by PA at 0030. 100mg of propofol given with 50mg of rocuronium for intubation, RT at bedside. ETT 7.5, 23cm at the lip, after CXR pull to 25cm at the lip. OG tube placed and confirmed by CXR. Pt started on propofol for sedation with precedex being shut off. PA made decision to place chest tube after imaging results. Initially placed with number 8fr midclavicular pigtail on right chest. See procedure note. Pt started on levophed for sbp in the 70's to maintain MAP over 65. Pt continued to desaturate despite ett and 100% Fi02. Decision was made by PA to change chest tube. Unsuccessful, ER MD called for assistance with as well as called from home. During procedure v-fib on tele was noted @ approximately 0230, CPR initiated immediately, and Code Blue initiated see paper documentation. Dr. Marina at bedside to attempt chest tube. TOD 0258. Organ bank called 0310 and declined. Pt family attempted to be contacted by providers. Post-mortem care to be done.
--- NOTE | 2021-09-10 03:37 | P.PCNCC_ITS ---
Procedures Date of Service Date of Service: 09/10/21 Abscess I/D Consent for Procedure: Elective - informed consent obtained (pts john over the phone. ) Central Line Placement A quick time-out was made for clarification and proper patient identification, patient was positioned, landmarks were identified, US used to locate a large compressible IJ. The right neck was widely prepped and draped in a full sterile fashion. Ultrasound was used to locate again the right IJ, the vein was cannulated on the 1st pass with an 18 gauge thin needle, dark nonpulsatile blood return was obtained. The wire was threaded, a small incision was made at its base and dilator inserted. A triple-lumen central venous catheter was advanced into the vein up to the hub without problems, wired was removed. Ports had good blood return and flushed x3. The catheter was secured with 3 sutures at 3 sites, a Biopatch and dry sterile dressing were applied. Post procedure chest x-ray showed the line to be in good position, Showing a already known pneumoth orax, however this was not yet reported to me by the Radiology at the time of this procedure given that he happened right after intubation. No bleeding or complications noted.: Central Line Comments: This procedure was done immediately after intubating the patient, in the meantime an x-ray had been taken for tube placement sent to Radiology while I gathered my supplies for this procedure. On the reviewed x-ray post intubation and post placement of this line is eminent the patient has bilateral pneumothorax right greater down left with concern for tension and left mediastinal shift which prompted the next procedure of chest tube placement as detailed on the note.
--- NOTE | 2021-09-10 03:37 | W.PM.CCHP ---
Procedures Date of Service Date of Service: 09/09/21 Abscess I/D Consent for Procedure: Elective - informed consent obtained (from pts over the phone) Central Line Placement A quick time-out was made for clarification and proper patient identification, patient was positioned, landmarks were identified, US used to locate a large compressible IJ. The right neck was widely prepped and draped in a full sterile fashion. Ultrasound was used to locate again the right IJ, the vein was cannulated on the 1st pass with an 18 gauge thin needle, dark nonpulsatile blood return was obtained. The wire was threaded, a small incision was made at its base and dilator inserted. A triple-lumen central venous catheter was advanced into the vein up to the hub without problems, wired was removed. Ports had good blood return and flushed x3. The catheter was secured with 3 sutures at 3 sites, a Biopatch and dry sterile dressing were applied. Post procedure chest x-ray showed the line to be in good position, Showing a already known pneumothorax, however this was not yet reported to me by the Radiology at the time of this procedure given that he happened right after intubation. No bleeding or complications noted.: Central Line Comments: Prior to the above-mentioned central line placement around 8:00 p.m. on 09/09/[address] a central line by me without any success. I did try to place a central catheter needle on both the right and the left IJ under ultrasound guidance however patient's veins kept collapsing and he was impossible for me to get good blood return or cannulate the wire therefore this procedures were aborted, just to ensure that there were no complications, an x-ray was obtained about 20-30 minutes after these attempts and these x-ray showed no complications including no pneumothorax as shown on the report timed 2138.
--- NOTE | 2021-09-10 04:12 | PC.RT ---
RT called to ICU to see patient. Patient was on the 980 Ventilator and was not returning any tidal volumes and sats were in the 70's. pt taken off vent and was ambubagged at 100% with 5 of peep. pt proceeded to have copious trang blood secretions from ETT. Pt was suctioned 4 times and it remained copious trang blood and also maintaining the patients airway. After suctionong many times, I tried to place the patient back on the ventilator but there was little to no tidal volumes return.. The patient hen was ambubagged again on 100% fi02 with 5 peep. At this time the PA was still placing a chest tube in. The patient chest was not symetrical during ambu bagging the patient. The right side was going up and down but the left side was not.I then listed to breath sounds and noticed in fact that the right sided apecie had air movement but the left had absent breath sounds during auscultation. At this time, Dr. Crane from the ED was present. Shortly after telling the Nurse and MD about her breath sounds, there was a change on the EKG which was Ventrical Fibrillation. A code was called and CPR was initiated by the nurse while RT bagged the patient. At this time we start epi and bicarbonate and the AED pads were placed on the patient. Dr. Marina had arrived and proceeded to put chest tube in the patients RLL and copious trang blood was present. After several rounds of ACLS, and maintaining the patients airway at all times during CPR and checking constantly on ETT placement which was 25 lip. decided to do a echo on the patients heart and there was little to no motion what so ever. There was some activity but mostly due to her pacemaker. The code was called and CPR was stopped and the patient at 0258am. .
--- NOTE | 2021-09-10 05:05 | P.PNCC_ITS ---
Subjective Subjective Date of Service: 09/10/21 Interval History: Mrs. Sánchez was transferred to the ICU yesterday morning with hypoxemic respiratory failure secondary to COVID pneumonia.? Although she was hypoxemic, work of breathing was minimally increased.? Once we put her on Precedex, she was comfortable, breathing easy.? Sats on HFNC 95% + NRBFM were 85-89%.? She had excellent veins; peripheral venous blood gas showed 7.58/37/+13. This evening, her clinical status worsened somewhat. DESIREE Velez attempted placement of a central line.? Attempts on both sides failed.? (See his procedure notes.)? The procedure was abandoned.? Post-procedure CXR at 2133 showed no PTX, but did show overall worsening pneumonia, lisbet on the right side. The patient was stable until after midnite when her Sats began to drop.? DESIREE Velez intubated the patient about 0040, and then put a central line in.? The post-intubation film showed a significant right PTX with mediastinal shift, along with a very small apical PTX on the left.? He therefore placed a right sided Arrow pneumothorax drainage catheter.? The f/u post-procedure CXR showed no significant change in the PTX.? DESIREE Velez therefore changed the Arrow pneumothorax catheter to a Alexey pigtail pneumothorax drainage catheter.? During this time, the patient began to develop noticeable subcutaneous emphysema. As I was arriving to the hospital, the patient arrested and CPR/ACLS was begun.? After initiation of CPR, the patient developed massive hemoptysis (note that the patient was fully anticoagulated). I arrived and immediately made a 1-2 cm stab wound in approximately the right 4th ICS in the [facility] and placed a formal chest tube (not sure of the size).? On insertion of that tube, there was immediate hemorrhage thru the tube of 3-400 cc of trang blood into the pleurovac.? (The chest tube slid in easily, so I?m fairly sure I was in the pleural space as opposed to the lung). All during this time, CPR was ongoing.? The underlying rhythm was asystole, with no pacer spikes (at least when I arrived).? Immediately after the chest tube was placed, I echo?d the patient.? On parasternal imaging, I saw no recognizable st ructures.? On subcostal imaging, I was able to see the heart, but there was no cardiac activity.? We gave more epi, and CPR continued.? A very good pulse was felt in the groin with each cardiac compression.? At some point, the patient went into VFib.? We delivered one 200 J shock which converted the patient into an organized rhythm w paced beats (sinus vs afib).? At that point, there was visible cardiac activity on the subcostal echo images, but no pulse.? The patient also had some agonal breaths.? A BP cycled, reading 113/91, but there was no pulse.? We gave another epi, and more CPR.? But the cardiac activity faded to nothing, despite the pacemaker.? And there was no further spontaneous respiratory efforts.? At that point, resuscitative efforts were stopped.? Time of was called at 0258. Critical care time: 30+ min. Critical Care Time (minutes): 30 Physical Exam Vital Signs: Vital Signs: Last Vital Signs Temp 96.3 F L 09/10/21 02:00 Pulse 60 09/10/21 02:00 Resp 18 09/10/21 02:00 BP 130/78 09/10/21 02:00 Pulse Ox 80 L 09/10/21 01:00 Body Mass Index 48.4 Objective Data Labs CBC & Chem 7: 09/09/21 20:04 09/09/21 20:04 Labs: Laboratory Results - last 24 hr 09/09/21 09/09/21 09/09/21 06:02 07:10 07:10 WBC RBC Hgb Hct MCV MCH MCHC RDW Plt Count MPV Immature Gran % (Auto) Neut % (Auto) Lymph % (Auto) [place] % (Auto) Eos % (Auto) Baso % (Auto) Lymph # (Auto) [place] # (Auto) Eos # (Auto) Baso # (Auto) Abs Immat Gran (auto) Absolute Neuts (auto) Absolute Nucleated RBC Nucleated RBC % (auto) Smear Tech's Comments PT 36.5 H INR 3.1 H APTT D-Dimer High Sensitivty 50925 O2 Saturation 85.0 ABG pH at Pt Temp 7.54 H ABG pH (Temp Correct) 7.55 H ABG pCO2 at Pt Temp 40 ABG pCO2 (Temp Corrct 39 ABG pO2 at Pt Temp 59 L ABG pO2 (Temp Correct 55 L ABG HCO3 35 H ABG Base Excess (Actual) 11.7 VBG pH VBG pCO2 VBG pO2 VBG HCO3 VBG O2 Saturation VBG Base Excess Sodium Potassium Chloride Carbon Dioxide Anion Gap BUN Creatinine Estim Creat Clear Calc Estimated GFR POC Glucose Random Glucose Calcium Phosphorus Magnesium Ferritin Total Bilirubin AST ALT Alkaline Phosphatase B-Natriuretic Peptide 321 H Total Protein Albumin Procalcitonin 09/09/21 09/09/21 09/09/21 15:20 15:20 15:20 WBC 17.7 H RBC 4.07 L Hgb 13.4 Hct 38.9 MCV 95.6 MCH 32.9 MCHC 34.4 RDW 14.7 Plt Count 92 L D MPV 11.3 Immature Gran % (Auto) Neut % (Auto) Lymph % (Auto) [place] % (Auto) Eos % (Auto) Baso % (Auto) Lymph # (Auto) [place] # (Auto) Eos # (Auto) Baso # (Auto) Abs Immat Gran (auto) Absolute Neuts (auto) Absolute Nucleated RBC 0.000 Nucleated RBC % (auto) 0.0 Smear Tech's Comments PT INR APTT 39.3 H D-Dimer High Sensitivty O2 Saturation ABG pH at Pt Temp ABG pH (Temp Correct) ABG pCO2 at Pt Temp ABG pCO2 (Temp Corrct ABG pO2 at Pt Temp ABG pO2 (Temp Correct ABG HCO3 ABG Base Excess (Actual) VBG pH VBG pCO2 VBG pO2 VBG HCO3 VBG O2 Saturation VBG Base Excess Sodium 141 Potassium 3.9 Chloride 99 Carbon Dioxide 30 H Anion Gap 16 BUN 43 H Creatinine 0.87 Estim Creat Clear Calc 81.8 Estimated GFR > 60 POC Glucose Random Glucose 163 H Calcium 8.3 L Phosphorus 3.9 Magnesium 2.1 Ferritin 2742 H Total Bilirubin 3.7 H AST 112 H ALT 140 H Alkaline Phosphatase 171 H D B-Natriuretic Peptide Total Protein 5.7 L Albumin 2.3 L D Procalcitonin 09/09/21 09/09/21 09/09/21 15:20 15:26 20:04 WBC 17.5 H RBC 4.19 L Hgb 13.7 Hct 41.3 MCV 98.6 H MCH 32.7 MCHC 33.2 RDW 14.9 Plt Count 77 L MPV 12.0 Immature Gran % (Auto) 1.5 H Neut % (Auto) 92.4 H Lymph % (Auto) 3.1 L [place] % (Auto) 2.9 Eos % (Auto) 0.0 Baso % (Auto) 0.1 Lymph # (Auto) 0.5 L [place] # (Auto) 0.5 Eos # (Auto) 0.0 Baso # (Auto) 0.0 Abs Immat Gran (auto) 0.26 H Absolute Neuts (auto) 16.2 H Absolute Nucleated RBC 0.000 Nucleated RBC % (auto) 0.0 Smear Tech's Comments VERIFIED PT INR APTT D-Dimer High Sensitivty O2 Saturation ABG pH at Pt Temp ABG pH (Temp Correct) ABG pCO2 at Pt Temp ABG pCO2 (Temp Corrct ABG pO2 at Pt Temp ABG pO2 (Temp Correct ABG HCO3 ABG Base Excess (Actual) VBG pH 7.58 H VBG pCO2 37 VBG pO2 73 VBG HCO3 35 H VBG O2 Saturation 92.0 VBG Base Excess 13.0 Sodium Potassium Chloride Carbon Dioxide Anion Gap BUN Creatinine Estim Creat Clear Calc Estimated GFR POC Glucose Random Glucose Calcium Phosphorus Magnesium Ferritin Total Bilirubin AST ALT Alkaline Phosphatase B-Natriuretic Peptide Total Protein Albumin Procalcitonin 0.28 09/09/21 09/09/21 09/09/21 20:04 20:04 20:04 WBC RBC Hgb Hct MCV MCH MCHC RDW Plt Count MPV Immature Gran % (Auto) Neut % (Auto) Lymph % (Auto) [place] % (Auto) Eos % (Auto) Baso % (Auto) Lymph # (Auto) [place] # (Auto) Eos # (Auto) Baso # (Auto) Abs Immat Gran (auto) Absolute Neuts (auto) Absolute Nucleated RBC Nucleated RBC % (auto) Smear Tech's Comments PT 43.7 H INR 3.7 H APTT 41.4 H D-Dimer High Sensitivty O2 Saturation ABG pH at Pt Temp ABG pH (Temp Correct) ABG pCO2 at Pt Temp ABG pCO2 (Temp Corrct ABG pO2 at Pt Temp ABG pO2 (Temp Correct ABG HCO3 ABG Base Excess (Actual) VBG pH VBG pCO2 VBG pO2 VBG HCO3 VBG O2 Saturation VBG Base Excess Sodium 140 Potassium 4.0 Chloride 102 Carbon Dioxide 27 Anion Gap 15 BUN 46 H Creatinine 0.91 Estim Creat Clear Calc 78.2 Estimated GFR > 60 POC Glucose Random Glucose 175 H Calcium 8.2 L Phosphorus 4.1 Magnesium 2.3 Ferritin Total Bilirubin 3.7 H AST 100 H ALT 133 H Alkaline Phosphatase 158 H B-Natriuretic Peptide 393 H Total Protein 5.9 L Albumin 2.3 L Procalcitonin 09/09/21 09/10/21 09/10/21 20:09 02:50 03:01 WBC RBC Hgb Hct MCV MCH MCHC RDW Plt Count MPV Immature Gran % (Auto) Neut % (Auto) Lymph % (Auto) [place] % (Auto) Eos % (Auto) Baso % (Auto) Lymph # (Auto) [place] # (Auto) Eos # (Auto) Baso # (Auto) Abs Immat Gran (auto) Absolute Neuts (auto) Absolute Nucleated RBC Nucleated RBC % (auto) Smear Tech's Comments PT INR APTT D-Dimer High Sensitivty O2 Saturation ABG pH at Pt Temp ABG pH (Temp Correct) ABG pCO2 at Pt Temp ABG pCO2 (Temp Corrct ABG pO2 at Pt Temp ABG pO2 (Temp Correct ABG HCO3 ABG Base Excess (Actual) VBG pH 7.56 H 6.99 L* VBG pCO2 35 144 VBG pO2 111 22 VBG HCO3 31 H 35 H VBG O2 Saturation 98.0 < 30.0 VBG Base Excess 9.4 0.0 Sodium Potassium Chloride Carbon Dioxide Anion Gap BUN Creatinine Estim Creat Clear Calc Estimated GFR POC Glucose 157 H Random Glucose Calcium Phosphorus Magnesium Ferritin Total Bilirubin AST ALT Alkaline Phosphatase B-Natriuretic Peptide Total Protein Albumin Procalcitonin 09/10/21 03:04 WBC RBC Hgb Hct MCV MCH MCHC RDW Plt Count MPV Immature Gran % (Auto) Neut % (Auto) Lymph % (Auto) [place] % (Auto) Eos % (Auto) Baso % (Auto) Lymph # (Auto) [place] # (Auto) Eos # (Auto) Baso # (Auto) Abs Immat Gran (auto) Absolute Neuts (auto) Absolute Nucleated RBC Nucleated RBC % (auto) Smear Tech's Comments PT INR APTT D-Dimer High Sensitivty O2 Saturation < 30.0 ABG pH at Pt Temp 7.00 L* ABG pH (Temp Correct) ABG pCO2 at Pt Temp 140 H* ABG pCO2 (Temp Corrct ABG pO2 at Pt Temp 23 L* ABG pO2 (Temp Correct ABG HCO3 35 H ABG Base Excess (Actual) 0.1 VBG pH VBG pCO2 VBG pO2 VBG HCO3 VBG O2 Saturation VBG Base Excess Sodium Potassium Chloride Carbon Dioxide Anion Gap BUN Creatinine Estim Creat Clear Calc Estimated GFR POC Glucose Random Glucose Calcium Phosphorus Magnesium Ferritin Total Bilirubin AST ALT Alkaline Phosphatase B-Natriuretic Peptide Total Protein Albumin Procalcitonin Microbiology Microbiology Results: Microbiology 08/26/21 07:27 Blood - Venous Blood Culture - Final No growth after 5 days. 08/26/21 06:39 Blood - Venous Blood Culture - Final No growth after 5 days. Quality Stroke Does the patient have a stroke diagnosis?: No VTE Prior VTE?: No VTE Risk Level:: Medical - moderate - high VTE Device Contraindication: Treatment Not Indicated VTE Drug Contraindication: N/A - Med Ordered Critical Care Time Critical Care Time (minutes): 30
--- NOTE | 2021-09-10 05:36 | P.PCNCC_ITS ---
Procedures Date of Service Date of Service: 09/10/21 Abscess I/D Consent for Procedure: Emergent-no informed consent obtained Intubation Intubation Comments: at 12:30 a.m. emergent intubation to place via RSI protoc ol, the patient was hypoxic despite of high-flow O2 and non-rebreather mask oxygen administration. pre oxygenation was attempted with Ambu bag however we were only able to get her sat up to 82% Consent for Procedure: Emergent-no informed consent obtained Time out performed: No Sedative: propofol Mg given: 100 Paralytic: rocuronium Mg given: 50 Laryngoscope: fiber optic video scope ET tube size: 7.5 ET tube uncuffed: Yes Tube secured depth (cm): 25 Tube secured location: lips Tube placement confirmation: visualized tube passing through cords Patient tolerated procedure: well and no complications ( initially no complications were detected I was not able to review this x-ray for the patient needed central line placement however afterwards, a reported pneumothorax was mention to me by the radiologist) Intubation complications: other ( as above, pneumothorax bilateral reported by radiologist)
--- NOTE | 2021-09-10 05:41 | P.EN_ITS ---
Event Note Date of Service: 09/11/21 Event Note: I received sign-out from Dr. Marina,? who asked me to review this patient's volume status via echo? of the IVC and also determine whether not the patient will need a central line. 8:00 p.m. bedside echo was done, patient has fully collapsible IVC with inspiration.? Overall the patient's volume status appears to be dry, the patient's BUN to creatinine ratio is over 30 therefore I do believe the patient needs IV fluids. Patient has intermittent periods of hypoxia 88% despite of being on high-flow O2 and non-rebreather mask, she also has borderline low core temperature 96. 6. ?It seems that the patient was hypoxic throughout the day with sats between 85 and 8 8% with 2 readings between 6 and 7:00 a.m. at 93%, however the patient continued to have desaturation. Patient received 700 cc of IV fluids but she continued to be hypoxic, my concern was rapid fluid overload and instead and despite of my suspicion low volume, gave her Bumex 2 mg IV x1 with good urine output production.? The patient however had significant work of breathing and was becoming agitated, Dilaudid 1 mg IV x1 was given with good relaxation affect. 5 p.m. central line placement was decided an attempted after getting verbal consent from the patient's over the phone given the fact that the patient will need heparin drip tomorrow as it is noted that the patient has bilateral DVTs and although she is on Coumadin right now, with COVID, it is easy that the patient could develop PE at some point.? Patient has peripheral access but has poor vasculature and she is obese. Nevertheless this was attempted twice, I attempted to put a central line on the right side and on the left side via ultrasound-guided procedure however I was not successful for the veins kept collapsing kept collapsing.? To ensure that there were no complications, an x-ray was obtained and this showed increased patchy airspace opacities and bilateral pleural effusions, no pneumothorax. 1220 am Patient maintained oxygen saturations between 84 and 88% until about midnight, however at around 1225 in the morning, the patient developed worsened hypoxia going down to 78%, at this point the decision to intubate the patient RIS was made, respiratory therapist was called.? Dr. Marina was called and I informed him of what happened and the need of emergent intubation although these feeling was previously expressed to him given the intermittent hypoxic episodes of this patient. Patient was successfully intubated, please see procedure note for details, patient was given propofol and rocuronium; ?good capnography, bilateral chest rise and O2 sat went up to 87% while being bagged and subsequently placed on ventilator.? There was a little bit of resistance, endotracheal tube was advanced and set at 25 at the lip. ?While this was happening, and given that the patient was now sedated and paralyzed I proceeded to gather my equipment and place a central line via ultrasound on the right side which was successful at the 1st attempt.? 0108 am got a call from the radiologist reporting that there is a small to moderate pneumothorax on the right side with a portable apical pneumothorax on the left side; with associated concerning tension and probable med is stain as shift ?noted on the x-ray done right after intubation which I was not able to review at the time.? Patient has an O2 sat of 84-85% on the vent with settings of AC, 24, 450, at 12, 100% FiO2 I called Dr. Marina and notified him of the presence of the pneumothorax and the fact that the patient is still hypoxic and will need a chest tube which given the urgency okayed for me to place.? O2 sat continue to go down to as low as 82 %. 0130 An Arrow Pneumothorax cath was successfully placed by me on the right mid clavicular chest with axis at the 2nd intercostal space, good banerjee of air was noted, this was connected to the Pleur-evac although the air coming out seem to be intermittent in a could not explain these.? I kept checking making sure that the air was coming out in this was indeed the case. ?There were no complications during this procedure.? A repeat x-ray was obtained to ensure the placement of the catheter. The patients O 2 sat did improve to 87% for about 10-15 min and started to drop again. 0222 discussed the x-ray with Dr. Garcia radiologist who reports that the catheter is in place however there is no significant improvement of the pneumothorax.? In addition he reiterates the previously identified small pneumothorax on the left. At this point, I had nursing supervisor slashing department called Dr. Marina asked him to come in, in the meantime I have asked for backup from the emergency room, while they were arriving the patient O2 sat went down to 78%; the patient's nurse Viry noticed that the patient's chest continued to build up more subcutaneous emphysema, very likely due to the tension Pneumothorax. I rechecked the suction connection and it was little air on and off coming out, so I decided to change the catheter to a larger cath (Alexey Pigtail Cath) catheter using the guide wire to overlie and replace; this was smoothed and easy without complications, no fluid or blood noted, again a good large air banerjee was obtained and this was once again connected to the pleural vac, however despite of my attempt, the patient's O2 sat did not improve which is likely due to the patient's tension pneumothorax, which was initially mentioned as a concern in the radiologist's reading and subsequently noticing left mediastinal shift; but it was the best I could do at that time to try to help the situation. I was just finishing this, I was not able to suture these tail into the chest of the patient, but this was connected to the pleura vac and the was no blood or fluid coming into the container adjust air. At this point emergency physician Dr. Guerrero was there to help to place a large chest tube at the mid axillary line. ??While she was prepping the site, the patient's nurse Benson notice that the patient's rhythm suddenly changed and the patient went into VFib at 2:30 a.m. ACLS protocol was followed, CPR started immediately, patient was placed on the crash car monitor or and AED pads however the patient immediately went into asystole; CPR was restarted and whole CODE BLUE, was performed, please see details of med administration in the code paperwork record. ?The emergency physician also helped during this code and at this time doctor maciel frederick had arrived. 0243 Dr. marina placed a large size chest tube on the right mid axillary line, approximately 250 cc of bright red blood was noted to come directly into the tube, all this while the code was ongoing. 0248 a single shock was delivered and compressions were continued, point of care was 157. 0253 pulse was checked, there was none, there was pacer activity on the monitor only however this is unclear why the pacer was not firing before. At this point the patient was initially declared has however it was also noted the patient had agonal breathing and once again epinephrine was administered, an ABG was done, and ACLS efforts were continued. Is also worth noting that the patient had significant amount blood coming out of the endotracheal tube which is started happening in the middle of the ACLS code blue protocol. I wonder if the patient had DIC given the underlying clotting issues, the fact that she was hypercoagulable with INR of 3.7 and low platelets but despite of all, bilateral DVTs.? In the presence of COVID it is also possible that the patient developed a pulmonary embolism. 0258 patient and all resuscitation attempts were stop by Dr. Marina. Cause of : ?Cardiopulmonary arrest secondary to tension pneumothorax I wonder if the patient had DIC given the underlying clotting issues, the fact that she was hypercoagulable with INR of 3.7 and low platelets but despite of all, bilateral DVTs.? In the presence of COVID it is also possible that the patient developed a pulmonary embolism. It is worth noting that from the very beginning of any type of complications I did talk to the patient's family including the patient's and son obtaining consent for central line placement subsequent intubation however once other complications presented, we all try to get a hold of the family and had called several times to the only number on record, we only got a voicemail recorded and messages were left for the family to call us back.? 0650 am I was finally able to talk to the patient's again . John Sánchez, who was aware that the patient was developing complications as I talked to him last night, I inform him of his 's passing and answered very little and basic questions he had about it, he understood that she was very ill and for several weeks and rather thanked us for taking care of his . Total critical time spent with this patient 240 minutes ( not including procedure times)
--- NOTE | 2021-09-10 06:46 | PM.DS ---
DS: Providers Provider Date of Service: 09/11/21 Date of admission: 08/26/21 09:44 Primary care physician: Richard Alvarado Consults: 08/26/21 09:48 Consult to Infectious Diseases Routine Consulting Provider: Natalie Walker Reason for consultation: COVID positive 08/31/21 18:24 Consult to Care Team Routine Comment: Reason for consultation: anxiety 09/06/21 14:28 Consult to Orthopedics Routine Consulting Provider: Cleveland Liang Reason for consultation: right forearm fx -missing splint Has provider been notified: No DS: Diagnosis Discharge Diagnosis (1) COVID-19: Status: Acute (2) Congestive heart failure: Status: Acute (3) Right scapholunate ligament tear: Status: Acute DS: Summary Hospital Course Hospital Course: Admission/discharge diagnosis: 1.? Cardiopulmonary arrest 2.? Tension pneumothorax bilateral 3.? Ventricular fibrillation 4.? Bilateral lower extremity DVT 5.? Hypoxic respiratory failure due to COVID-19 infection/ARDS 6.? Morbid obesity 7.? History of coronary artery disease with SD about 5 years ago 8.? Hyperlipidemia 9.? Hypertension 10.?? Suspected but unconfirmed AFib previously on Coumadin 11.?? NOEL HPI/hospital course Mrs. Sánchez was transferred to the ICU this morning with altered mental status and hypoxemic respiratory failure secondary to COVID pneumonia. The patient is a 75-year-old woman with past medical history of hypertension, hyperlipidemia, coronary artery disease, status AMI about 5 years ago, hypothyroidism, probable anxiety disorder, and status post cholecystectomy.? She also has a PPM, and takes Coumadin, presumably for atrial fibrillation.? Her home meds include Lasix 20 mg daily, oxycodone, citalopram, lisinopril 20 mg daily, metoprolol ER 200 mg daily, and Coumadin 5 mg daily. The patient had a positive COVID test on August 23.? (Therefore assume symptom onset date of August 22.) ?She was BIBA ambulance to the ED for shortness of breath and dizziness on Aug 26.? Sat was 90% on room air.? BUN/creat were 18/0.9.? DDimer 425, ferritin 534, PCT negative.? BNP was 799.? CXR (my reading) showed minimal increased interstitial markings, but the radiologist read it as showing no acute findings. ?She also had a subacute intraarticular fracture of the right distal radius. The patient was given Lasix and admitted to Medicine with the diagnosis of COVID pneumonia, and CHF.? She was treated with Decadron and supplemental oxygen by nasal cannula.? Orthopedics rec a Velcro splint for the wrist, no further treatment.? Her FiO2 requirement increased progressively.? Chest CT on Sep 01 showed mild scattered ground-glass opacities typical of COVID.? She was up to 15 L by September 02.? She was on high-flow 95% FiO2 by the next day, followed by high-flow + NRBFM.? She was nontachypneic for most of her hospital stay until this morning. ? It is reported that the The patient was increasingly anxious and restless this morning, taking off her oxygen mask.? Arterial blood gas at 06:00 this morning showed 7.54/40/59/+11 (presumably on 95% HFNC). ?She appeared to be in potential need of tracheal intubation.? Therefore she given a dose of Lasix, and transferred down to the ICU. ? Dr. Laina duron ?the patient on arrival to the ICU.? Wt is 136kg, ht 5-6?.? On my exam with the nurse and me in the room, the patient is calm but easily becomes delirious on exam and with nursing maneuvers.? Respiratory rate was about 25 on HFNC 60 L/95% + NRBFM on full flush, with just a hint of accessory muscle use.? Sat was 85-87%.? HR about 60, Afib, paced.? BP 105/67.? She?s been afebrile the entire hospital stay.? No JVD at 30-40?.? Chest is CTA w normal exp phase.? Heart tones very soft; I heard no murmur or gallops.? Abdomen is obese and benign.? The patient has trivial peripheral edema. ?She definitely has tenderness of the right wrist. Unfortunately the patient decompensated quickly while in the ICU had several episodes of hypoxia, please see the detailed event note for details of her complications including the fact that she needed placement of a central line which was attempted x2 with failure but no pneumothorax shown on postprocedure x-ray.? At midnight on 10/10/2021, the patient developed worsened respiratory issues with hypoxic state and O2 sat in the high 70s at which point she require rapid sequence intubation.? Patient was placed on a ventilator and at the same time I was able to place a central line on the right IJ, given that I was performing the procedure I was not able to see the x-ray done at bedside which had already shown bilateral pneumothorax and this was soon reported to me by the radiologist. An Arrow tail pneumothorax catheter wire was placed by me midclavicular line which was successful obtaining good banerjee of air and connected to the pleura vac, the patient's O2 sat did improve all the way up to 87-88% for good 10-15 minutes but she quickly decompensated again, it is known that the patient also had any pickle pneumothorax on the left side. ?The above-mentioned physician had been called in to the hospital and in the meantime the patient continued to decompensate, unfortunately even though the catheter appeared to be in the right place, her pneumothorax was not improving and the nurse noted that the patient was developing worsening subcutaneous emphysema at which point I decided to change these to a Alexey pigtail catheter also obtaining good rise of air but it appeared to be intermittent, while this happen I had asked for ER physician back up which can lead happened and Dr. Guerrero was at bedside just before I could finish securing the above-mentioned pigtail catheter. ?While she was prepping to perform a fold size chest tube placement the patient went into VFib and quickly into asystole, ACLS protocol was started, please see procedure no and code note for details and for med administration. Kinsey through the code Dr. lopez was able to place a large size chest tube in the mid axillary line of the patient's chest but these filled up with blood which went into the pleura vac and soon after blood was also coming out of the endotracheal tube during bagging. ?Significant efforts were made to try to get the patient back, at some point a rhythm was obtained but it appeared that it was only the pacemaker doing his job, there was no pulse, blood pressure was also obtained at some point without any pulse in after approximately 20 minutes of CPR all measures were stopped and the patient was pronounced at 0258 am. Given that the patient had high INR of 3.7 while on Coumadin, had low platelets and at the same time bilateral DVTs I wonder if this patient was having underlying DIC complicating all matters. I did notify the patient's has been about the of the patient, locally I had being able to talk to them earlier and prior to any of these complications and had expressed him as well as his grandson my concern for the duration based on the patient's clinical scenario at the beginning of my shift. ? Time Spent with Patient Time attestation: Total time spent providing and/or coordinating discharge services: Discharge coordination time: Greater than 30 minutes Quality: Stroke Does the patient have a stroke diagnosis?: No Physical Exam Vital Signs: Vital Signs: Last Vital Signs Temp 96.3 F L 09/10/21 02:00 Pulse 60 09/10/21 02:00 Resp 18 09/10/21 02:00 BP 130/78 09/10/21 02:00 Pulse Ox 80 L 09/10/21 01:00 Body Mass Index 48.4 DS: Data Data Completed and Pending Labs on day of discharge: Laboratory Results - last 24 hr 09/09/21 09/09/21 09/09/21 07:10 07:10 15:20 WBC 17.7 H RBC 4.07 L Hgb 13.4 Hct 38.9 MCV 95.6 MCH 32.9 MCHC 34.4 RDW 14.7 Plt Count 92 L D MPV 11.3 Immature Gran % (Auto) Neut % (Auto) Lymph % (Auto) Glascock % (Auto) Eos % (Auto) Baso % (Auto) Lymph # (Auto) Glascock # (Auto) Eos # (Auto) Baso # (Auto) Abs Immat Gran (auto) Absolute Neuts (auto) Absolute Nucleated RBC 0.000 Nucleated RBC % (auto) 0.0 Smear Tech's Comments PT 36.5 H INR 3.1 H APTT D-Dimer High Sensitivty 19180 O2 Saturation ABG pH at Pt Temp ABG pCO2 at Pt Temp ABG pO2 at Pt Temp ABG HCO3 ABG Base Excess (Actual) VBG pH VBG pCO2 VBG pO2 VBG HCO3 VBG O2 Saturation VBG Base Excess Sodium Potassium Chloride Carbon Dioxide Anion Gap BUN Creatinine Estim Creat Clear Calc Estimated GFR POC Glucose Random Glucose Calcium Phosphorus Magnesium Ferritin Total Bilirubin AST ALT Alkaline Phosphatase B-Natriuretic Peptide 321 H Total Protein Albumin Procalcitonin 09/09/21 09/09/21 09/09/21 15:20 15:20 15:20 WBC RBC Hgb Hct MCV MCH MCHC RDW Plt Count MPV Immature Gran % (Auto) Neut % (Auto) Lymph % (Auto) Glascock % (Auto) Eos % (Auto) Baso % (Auto) Lymph # (Auto) [place]ock # (Auto) Eos # (Auto) Baso # (Auto) Abs Immat Gran (auto) Absolute Neuts (auto) Absolute Nucleated RBC Nucleated RBC % (auto) Smear Tech's Comments PT INR APTT 39.3 H D-Dimer High Sensitivty O2 Saturation ABG pH at Pt Temp ABG pCO2 at Pt Temp ABG pO2 at Pt Temp ABG HCO3 ABG Base Excess (Actual) VBG pH VBG pCO2 VBG pO2 VBG HCO3 VBG O2 Saturation VBG Base Excess Sodium 141 Potassium 3.9 Chloride 99 Carbon Dioxide 30 H Anion Gap 16 BUN 43 H Creatinine 0.87 Estim Creat Clear Calc 81.8 Estimated GFR > 60 POC Glucose Random Glucose 163 H Calcium 8.3 L Phosphorus 3.9 Magnesium 2.1 Ferritin 2742 H Total Bilirubin 3.7 H AST 112 H ALT 140 H Alkaline Phosphatase 171 H D B-Natriuretic Peptide Total Protein 5.7 L Albumin 2.3 L D Procalcitonin 0.28 09/09/21 09/09/21 09/09/21 15:26 20:04 20:04 WBC 17.5 H RBC 4.19 L Hgb 13.7 Hct 41.3 MCV 98.6 H MCH 32.7 MCHC 33.2 RDW 14.9 Plt Count 77 L MPV 12.0 Immature Gran % (Auto) 1.5 H Neut % (Auto) 92.4 H Lymph % (Auto) 3.1 L Glascock % (Auto) 2.9 Eos % (Auto) 0.0 Baso % (Auto) 0.1 Lymph # (Auto) 0.5 L Glascock # (Auto) 0.5 Eos # (Auto) 0.0 Baso # (Auto) 0.0 Abs Immat Gran (auto) 0.26 H Absolute Neuts (auto) 16.2 H Absolute Nucleated RBC 0.000 Nucleated RBC % (auto) 0.0 Smear Tech's Comments VERIFIED PT INR APTT D-Dimer High Sensitivty O2 Saturation ABG pH at Pt Temp ABG pCO2 at Pt Temp ABG pO2 at Pt Temp ABG HCO3 ABG Base Excess (Actual) VBG pH 7.58 H VBG pCO2 37 VBG pO2 73 VBG HCO3 35 H VBG O2 Saturation 92.0 VBG Base Excess 13.0 Sodium 140 Potassium 4.0 Chloride 102 Carbon Dioxide 27 Anion Gap 15 BUN 46 H Creatinine 0.91 Estim Creat Clear Calc 78.2 Estimated GFR > 60 POC Glucose Random Glucose 175 H Calcium 8.2 L Phosphorus 4.1 Magnesium 2.3 Ferritin Total Bilirubin 3.7 H AST 100 H ALT 133 H Alkaline Phosphatase 158 H B-Natriuretic Peptide Total Protein 5.9 L Albumin 2.3 L Procalcitonin 09/09/21 09/09/21 09/09/21 20:04 20:04 20:09 WBC RBC Hgb Hct MCV MCH MCHC RDW Plt Count MPV Immature Gran % (Auto) Neut % (Auto) Lymph % (Auto) [place]ock % (Auto) Eos % (Auto) Baso % (Auto) Lymph # (Auto) [place]ock # (Auto) Eos # (Auto) Baso # (Auto) Abs Immat Gran (auto) Absolute Neuts (auto) Absolute Nucleated RBC Nucleated RBC % (auto) Smear Tech's Comments PT 43.7 H INR 3.7 H APTT 41.4 H D-Dimer High Sensitivty O2 Saturation ABG pH at Pt Temp ABG pCO2 at Pt Temp ABG pO2 at Pt Temp ABG HCO3 ABG Base Excess (Actual) VBG pH 7.56 H VBG pCO2 35 VBG pO2 111 VBG HCO3 31 H VBG O2 Saturation 98.0 VBG Base Excess 9.4 Sodium Potassium Chloride Carbon Dioxide Anion Gap BUN Creatinine Estim Creat Clear Calc Estimated GFR POC Glucose Random Glucose Calcium Phosphorus Magnesium Ferritin Total Bilirubin AST ALT Alkaline Phosphatase B-Natriuretic Peptide 393 H Total Protein Albumin Procalcitonin 09/10/21 09/10/21 09/10/21 02:50 03:01 03:04 WBC RBC Hgb Hct MCV MCH MCHC RDW Plt Count MPV Immature Gran % (Auto) Neut % (Auto) Lymph % (Auto) [place]ock % (Auto) Eos % (Auto) Baso % (Auto) Lymph # (Auto) [place] # (Auto) Eos # (Auto) Baso # (Auto) Abs Immat Gran (auto) Absolute Neuts (auto) Absolute Nucleated RBC Nucleated RBC % (auto) Smear Tech's Comments PT INR APTT D-Dimer High Sensitivty O2 Saturation < 30.0 ABG pH at Pt Temp 7.00 L* ABG pCO2 at Pt Temp 140 H* ABG pO2 at Pt Temp 23 L* ABG HCO3 35 H ABG Base Excess (Actual) 0.1 VBG pH 6.99 L* VBG pCO2 144 VBG pO2 22 VBG HCO3 35 H VBG O2 Saturation < 30.0 VBG Base Excess 0.0 Sodium Potassium Chloride Carbon Dioxide Anion Gap BUN Creatinine Estim Creat Clear Calc Estimated GFR POC Glucose 157 H Random Glucose Calcium Phosphorus Magnesium Ferritin Total Bilirubin AST ALT Alkaline Phosphatase B-Natriuretic Peptide Total Protein Albumin Procalcitonin Discharge Plan Discharge Date/Time: 09/10/21 02:58 Patient Disposition: Referrals: Richard Alvarado [Primary Care Provider] - 1 Week Discharge Medications: No Action levothyroxine 175 mcg tablet 175 mcg PO DAILY RF: 0 metoprolol succinate 200 mg tablet extended release 24 hr 200 mg PO DAILY RF: 0 lisinopril 20 mg tablet 20 mg PO DAILY RF: 0 simvastatin 40 mg tablet 40 mg PO BEDTIME RF: 0 citalopram 20 mg tablet 20 mg PO DAILY RF: 0 warfarin [Jantoven] 5 mg tablet 1 tab PO DAILY@1800 RF: 0 omeprazole 20 mg capsule,delayed release(DR/EC) 20 mg PO DAILY RF: 0 furosemide 20 mg tablet 20 mg PO DAILY RF: 0 oxycodone 5 mg tablet 5 mg PO Q6H RF: 0 multivitamin Tablet 1 tab PO DAILY RF: 0 ascorbic acid (vitamin C) [Vitamin C] 500 mg Tablet 500 mg PO DAILY RF: 0 Discharge Orders: Discharge Order (Routine); Ordered 09/10/21 Ordered By: Kervin Velez Discharge Date/Time: 09/10/21 05:15
--- NOTE | 2021-09-30 13:38 | P.CDIR_ITS ---
Documented by User: Mendy Chirinos RN 09/30/21 13:43 Retrospective Query PHYSICIAN'S DOCUMENTATION REQUEST Date of Query: 09/30/21 [id number] Patient Name: Mercedes Sánchez Admit Date: 08/26/21 Dear Doctor, A review of the medical record indicates additional documentation may be needed. Please review below and update the documentation accordingly. Clinical Indicators: Risk Factors/Clinical Indicators/Treatments Per MD progress note 09/09/21: transfer to ICU with altered mental status and hypoxemic respiratory failure secondary to COVID pneumonia. In ICU, easily becomes delirious on exam and with nursing maneuvers Based on the above, could you clarify in the Progress Notes which, if any of the following, is the most likely etiology of the confusion/altered mental status? * Encephalopathy - indicate type such as metabolic, toxic, septic, alcoholic, hypertensive, etc. * Acute delirium - indicate known or suspected etiology, such as postoperative, due to narcotics or other drugs, etc. * Acute or subacute confusional state due to (specify known or suspected etiology) * Other etiology (please specify) * Unable to determine Use of terms such as suspected, likely, concern for, or probable (associated with a specific diagnosis that is being evaluated, monitored, or treated as if it exists) are acceptable and can be coded in the inpatient setting, when documented at the time of discharge. Thank you, Mendy Chirinos RN Extension: [phone] Please use your independent medical judgment in providing your response. THIS QUERY IS PART OF THE PERMANENT MEDICAL RECORD Documented by User: Ernesto Marina MD 10/03/21 22:22 Retrospective Query Provider Response: Other (Acute delirium of uncertain etiology -- see addendum to my note of 09/09.)
== END 2021-09-10 05:15 | disposition expired | DRG 208 ==
LOC: HO.ED 07:04 → HO.EDOVER 09:52 → HO.IMC 14:28 → HO.ICU 09-09 11:28
PROVIDERS: Family Medicine; Hospitalist; Internal Medicine; Physician Assistant Medical; Admitting Provider Family Medicine; Emergency Provider Student in an Organized Health Care Education/Training Program; PCP Hospitalist; Visit Provider Anesthesiology
DX: U07.1 COVID-19 (principal); J12.82 Pneumonia due to coronavirus disease 2019; J80 Acute respiratory distress syndrome; I50.33 Acute on chronic diastolic (congestive) heart failure; D65 Disseminated intravascular coagulation [defibrination syndrome]; S52.501A Unspecified fracture of the lower end of right radius, initial encounter for closed fracture; Z68.42 Body mass index [BMI] 45.0-49.9, adult; N17.9 Acute kidney failure, unspecified; I82.443 Acute embolism and thrombosis of tibial vein, bilateral; J93.9 Pneumothorax, unspecified; G93.49 Other encephalopathy; E66.01 Morbid (severe) obesity due to excess calories; F39 Unspecified mood [affective] disorder; E03.9 Hypothyroidism, unspecified; K21.9 Gastro-esophageal reflux disease without esophagitis; R79.1 Abnormal coagulation profile; I25.10 Atherosclerotic heart disease of native coronary artery without angina pectoris; Z95.0 Presence of cardiac pacemaker; W19.XXXA Unspecified fall, initial encounter; I46.9 Cardiac arrest, cause unspecified; E78.5 Hyperlipidemia, unspecified; I48.91 Unspecified atrial fibrillation; I11.0 Hypertensive heart disease with heart failure; Z79.01 Long term (current) use of anticoagulants; Z79.890 Hormone replacement therapy; Z79.899 Other long term (current) drug therapy
CPT/HCPCS: 36415; 36600; 71045; 71250; 73110; 73130; 80048; 80053; 80076; 82728; 82803; 82947; 83605; 83615; 83735; 83880; 84100; 84132; 84145; 85025; 85027; 85379; 85610; 85730; 86140; 87040; 87635; 93005; 93306; 93970; 94002; 94003; 94640; 96374; 97110; 97163; 99285; C1758; J0171; J1100; J1170; J1940; J2060; J2270; J2930; P9047; Q9957